=== PATIENT | male | born 1945 | race Caucasian/White ===

== ENCOUNTER → 2017-07-14 13:17 | Outpatient (CLI) | payer MEDICARE, OTHER, SELFPAY ==
--- NOTE | 2017-07-14 13:27 | CA_ITS ---
PROCEDURE: 2-D M-mode and color Doppler study INDICATIONS FOR THE TEST: Chest pain COPD Heart Murmur Tobacco Smoking Palpitations Fatigue Syncope EdemaX HypertensionXDiabetes MellitusX Rheumatic Fever SOB SEAY Obesity Hyperlipidemia Family History HD Additional History CHF PATIENT INFORMATION HEIGHT: 67 WEIGHT:130 GENDER: Male B/P:120/70 2-D/M-MODE INTERPRETATION: 2-D MEASUREMENTS OBSERVED VALUES IN CMS Right Ventricular Dimension (RVDd) 1.8 Interventricular Septum (Thickness)(IVsd) .7 Left Ventricular Internal Dimensions(LVIDd) 4.6 Left Ventricular Posterior Wall (Thickness)(LVPWd) .8 Aortic Root 3.3 Aortic Cusp Separation .4 Left Atrial Dimensions (LAD) 2.5 2D 1. Left atrium is mildly enlarged, left ventricle is normal size, there is mild concentric left ventricular hypertrophy, visually estimated ejection fraction 55% with no obvious regional wall motion abnormality. 2. The right atrium and right ventricle are normal size and contractility. 3. The aortic valve is thickened and calcified with restriction the leaflet mobility. 4. The mitral and tricuspid valve leaflets are minimally thickened. 5. The pulmonic valve is poorly visualized. 6. No significant pericardial effusion noted. DOPPLER INTERROGATION: 1. The maximum aortic out flow velocity recorded study 3.5 m/s, resulting in a mean gradient across valve of 30 mmHg, valve area is not accurately calculated, this likely represents moderate aortic stenosis, there is mild aortic insufficiency present. 2. The mitral inflow velocity within normal range, there is no mitral stenosis, there is mild mitral regurgitation. Grade 1 diastolic dysfunction seen with tissue Doppler evidence of raised left atrial pressure. 3. Mild tricuspid regurgitation, tricuspid and jet velocity is insufficient for calculation of the right ventricular systolic pressure. CONCLUSION: 1. Mildly enlarged left atrium, normal left ventricular size, mild concentric left ventricular hypertrophy, visually estimated ejection fraction 55% with no obvious regional wall motion abnormality, grade 1 diastolic dysfunction seen with tissue Doppler evidence of raised left atrial pressure. 2. Thickened and calcified aortic valve, mean gradient across valve of 30 mmHg represents moderate aortic stenosis, there is mild aortic insufficiency present. 4. Mild mitral and tricuspid regurgitation 5. No significant pericardial effusion noted.
== END ==
PROVIDERS: Family Provider Internal Medicine; PCP Internal Medicine; Visit Provider Internal Medicine
DX: R06.09 Other forms of dyspnea (principal); R60.9 Edema, unspecified; I50.9 Heart failure, unspecified
CPT/HCPCS: 93306

== ENCOUNTER → 2017-10-23 10:33 | Outpatient (CLI) | payer MEDICARE, OTHER, SELFPAY ==
--- NOTE | 2017-10-23 10:39 | XR_ITS ---
XR ankle LT min 3V HISTORY: Pain following injury medially ITS.REASON: LT FOOT/ANKLE INJURY ORDERING PHYSICIAN: Sachin Jimenez PATIENT AGE: 72 years COMPARISON: None FINDINGS: No fracture or dislocation. No lytic or blastic change. There is normal mineralization.. The joint spaces are well-preserved. No significant degenerative/arthritic changes. No erosive changes evident. Diffuse vascular calcification IMPRESSION: No acute finding
--- NOTE | 2017-10-23 10:39 | XR_ITS ---
XR foot LT min 3V HISTORY: Pain, abrasion following injury ITS.REASON: LT FOOT/ANKLE INJURY ORDERING PHYSICIAN: Sachin Jimenez PATIENT AGE: 72 years COMPARISON: None FINDINGS: No fracture or dislocation. No lytic or blastic change. There is normal mineralization.. The joint spaces are well-preserved. No significant degenerative/arthritic changes. No erosive changes evident. There is diffuse vascular calcification. No radio opaque foreign body evident IMPRESSION: Negative, no acute finding
== END ==
PROVIDERS: PCP Internal Medicine; Visit Provider Internal Medicine
DX: M25.572 Pain in left ankle and joints of left foot (principal)
CPT/HCPCS: 73610; 73630

== ENCOUNTER → 2017-10-25 14:09 | Outpatient (POV) | payer MEDICARE, OTHER, SELFPAY | PROVIDERS: Family Provider Internal Medicine; PCP Internal Medicine | DX: Z00.00 Encounter for general adult medical examination without abnormal findings (principal) ==

== ENCOUNTER → 2017-12-05 09:42 | Outpatient (CLI) | payer MEDICARE, OTHER, SELFPAY | PROVIDERS: PCP Internal Medicine; Visit Provider Internal Medicine | DX: Z01.810 Encounter for preprocedural cardiovascular examination (principal); H26.9 Unspecified cataract | CPT/HCPCS: 93005 ==

== ENCOUNTER → 2018-01-24 12:39 | Outpatient (POV) | payer MEDICARE, OTHER, SELFPAY | DX: Z00.00 Encounter for general adult medical examination without abnormal findings (principal) ==

== ENCOUNTER → 2018-03-16 09:44 | Outpatient (CLI) | payer MEDICARE, OTHER, SELFPAY ==
--- NOTE | 2018-03-16 10:03 | XR_ITS ---
XR chest 2V HISTORY: ITS.REASON: CP , COUGH ORDERING PHYSICIAN: Sachin Jimenez PATIENT AGE: 72 years COMPARISON: 04/17/2015 FINDINGS: Unremarkable cardiovascular structures. There are emphysematous changes with scattered areas of pulmonary fibrosis with chronic areas of opacification. A suture line is present in the left upper lobe. Increased density is present in the lingula consistent with superimposed pneumonia. There are stable bilateral upper lobe nodular opacities. There is ankylosis of the thoracic spine with no acute bony findings evident. IMPRESSION: Emphysema/COPD with chronic changes with superimposed pneumonia within the lingula
[2018-03-16 10:16] LABS: Troponin I < 0.02 ng/ml (0.00-0.06)
== END ==
PROVIDERS: PCP Internal Medicine; Visit Provider Internal Medicine
DX: R07.9 Chest pain, unspecified (principal); R05 Cough; I25.10 Atherosclerotic heart disease of native coronary artery without angina pectoris
CPT/HCPCS: 36415; 71046; 84484; 93005

== ENCOUNTER → 2018-03-21 06:34 | Outpatient (CLI) | payer MEDICARE, OTHER, SELFPAY ==
--- NOTE | 2018-03-21 06:36 | CA_ITS ---
PROCEDURE: 2-D M-mode and color Doppler study INDICATIONS FOR THE TEST: Chest pain + COPD+ Heart Murmur Tobacco Smoking Palpitations Fatigue+ Syncope Edema+ Hypertension Diabetes Mellitus+ Rheumatic Fever SOB+SEAY Obesity Hyperlipidemia+ Family History HD Additional History ABN EKG, CANCER CHEMO PATIENT INFORMATION HEIGHT: 68 WEIGHT:140 GENDER: Male B/P:126/67 2-D/M-MODE INTERPRETATION: 2-D MEASUREMENTS OBSERVED VALUES IN CMS Right Ventricular Dimension (RVDd) 1.6 Interventricular Septum (Thickness)(IVsd) 1.2 Left Ventricular Internal Dimensions(LVIDd) 4.9 Left Ventricular Posterior Wall (Thickness)(LVPWd) 0.7 Aortic Root 3.4 Aortic Cusp Separation 1.7 Left Atrial Dimensions (LAD) 3.6 2D 1. Left atrium is mildly enlarged, left ventricle is normal size, mild concentric left ventricular hypertrophy, visually estimated ejection fraction 55% with no regional wall motion abnormality. 2. The right atrium and right ventricle are normal size and contractility. 3. The aortic valve is thickened and calcified with severe restriction the leaflet mobility. 4. The mitral valve has mitral annular calcification which extends and both anterior and posterior mitral leaflet. 5. The tricuspid valve is grossly normal 6. The pulmonic valve is poorly visualized 7. No significant pericardial effusion noted. DOPPLER INTERROGATION: 1. The maximum aortic out flow velocity recorded study is 4 m/s, resulting in a mean gradient across valve of 33 mmHg, valve area of 0.9 sq cm represents severe aortic stenosis, there is mild aortic insufficiency present. 2. The mitral inflow velocity within normal range, there is no mitral stenosis, there is mild mitral regurgitation, grade 1 diastolic dysfunction seen with tissue Doppler evidence of raised left atrial pressure. 3. There is mild tricuspid regurgitation noted, tricuspid regurgitant jet velocity is inadequate for calculation of the right ventricular systolic pressure CONCLUSION: 1. Mildly enlarged left atrium, normal left ventricular size, mild concentric left ventricular hypertrophy, visually estimated ejection fraction of 55% with no regional wall motion abnormality, grade 1 diastolic dysfunction seen with tissue Doppler evidence of raised left atrial pressure. 2. Thickened and calcified aortic valve with mean gradient across valve of 33 mmHg, valve area 0.9 sq cm represents severe aortic stenosis, there is mild aortic insufficiency. 3. Mild mitral and tricuspid regurgitation 4. No significant pericardial effusion noted.
--- NOTE | 2018-03-21 06:36 | NM_ITS ---
History and Indications: Diabetes, family history, chest pain, shortness of breath, syncope, fatigue and left arm pain Procedure: Patient received a 0.4 mg of intravenous Lexiscan, resting heart rate was 68 bpm resting blood pressure 101/58, with Lexiscan maximum heart rate achieved was 85 bpm which is less than 85% of the maximum predicted heart rate and a blood pressure was 83/38. With Lexiscan patient, shortness of breath and chest pressure requiring intravenous Aminophyllin to reverse symptoms. Electrocardiogram: Resting electrocardiogram showed sinus rhythm right bundle branch block with Lexiscan there is less than 1.[address] segment depression noted from the baseline EKG. The EKG portion of the Lexiscan Myoview is nondiagnostic. Cardiac stress and resting SPECT images: Cardiac stress and resting SPECT images were obtained using technetium 99 Myoview 30.5 mCi at stress and 10.7 mCi at rest. Gated SPECT further analysis of segmental wall motion and calculation of the ejection fraction also done. Cardiac stress and rest SPECT images show uniform myocardial activity without segmental perfusion abnormality, computer derived ejection fraction is over 65% with no regional wall motion abnormality, right ventricle is normal size and contractility. Conclusion: 1. The EKG portion of the Lexiscan Myoview is nondiagnostic. 2. No scintigraphic evidence of reversible ischemia seen, computer derived ejection fraction is over 65% with no regional wall motion abnormality, right ventricle is normal size and contractility. 3. Normal Lexiscan Myoview study.
--- NOTE | 2018-03-21 07:42 | HMH.ITSHM ---
Current Home Medications as stated by this patient Jose Burger or brand representative. []GABAPENTIN FUROSEMIDE HYDROCHLOROTHIAZIDE PRAVASTATIN OXUDOCONE LEVOFLOXCIN ISOSORBIDE GLIMAPIRIDE ASA OCUVITE
--- NOTE | 2018-03-21 09:03 | HMH.ITSHM ---
Current Home Medications as stated by this patient Jose Burger or cash posting representative. []gabapentin furosemide hydrochlorothiazide pravastatin oxicodone levfloxcin isosorbide glimapiride asa ocuvite
== END ==
PROVIDERS: Family Provider Internal Medicine; PCP Internal Medicine; Visit Provider Internal Medicine
DX: R06.00 Dyspnea, unspecified; Z82.49 Family history of ischemic heart disease and other diseases of the circulatory system; I45.2 Bifascicular block; J18.9 Pneumonia, unspecified organism; J44.9 Chronic obstructive pulmonary disease, unspecified; R05 Cough; E11.9 Type 2 diabetes mellitus without complications; M79.602 Pain in left arm; I20.8 Other forms of angina pectoris
CPT/HCPCS: 78452; 93017; 93306; A9502; J2785

== ENCOUNTER → 2018-04-18 15:46 | Outpatient (POV) | payer MEDICARE, OTHER, SELFPAY | DX: Z00.00 Encounter for general adult medical examination without abnormal findings (principal) ==

== ENCOUNTER 2018-06-10 11:01 | Inpatient (IN) ==
[2018-06-10 11:32] LABS: Basophils % 0.2 % (0.1-2.0); Hematocrit 37.3 % (42.0-52.0); Hemoglobin 12.2 g/dL (14.1-18.0); Lymphocytes # 1.8 K/mm3 (0.7-4.5); Lymphocytes % 14.5 % (10-50); Mean Corpuscular HGB Conc 32.6 g/dL (31.8-35.4); Mean Corpuscular Hemoglobin 31.9 pg (27.0-31.2); Mean Corpuscular Volume 97.9 fl (80-94); Mean Platelet Volume 7.6 fl (7.4-10.4); Monocytes # 1.3 K/mm3 (0.1-1.0); Monocytes % 10.5 % (1.7-9.3); Neutrophils # 9.2 K/mm3 (1.8-7.8); Neutrophils % 74.7 % (37.0-80.0); Platelet Count 205 K/mm3 (142-424); Red Blood Count 3.81 M/mm3 (4.60-6.20); Red Cell Distribution Width 12.6 % (11.5-17.5); White Blood Count 12.3 K/mm3 (4.8-10.8)
[2018-06-10 11:46] LABS: Albumin Level 3.1 gm/dL (3.4-5.0); Albumin/Globulin Ratio 0.6 (1.1-1.8); Anion Gap 16.3 mEq/L (5-15); Calcium 8.8 mg/dL (8.5-10.1); Globulin 5.1 gm/dl (1.3-3.2); Potassium 3.3 mmoL/L (3.5-5.1); Total Protein,Serum 8.2 gm/dL (6.4-8.2)
--- NOTE | 2018-06-10 11:59 | Emergency Department Note ---
ED Disposition Clinical Impression: Pneumonia, Hypoxemia Disposition: Admitted As Inpatient Condition on Discharge: Good Time of Disposition: 12:51 - Critical Care Critical Care Time: No Attestation: On 06/10/18, the high probability of a clinically significant, sudden or life threatening deterioration of the following system(s) required my full and direct attention, intervention and personal management. The time I documented below is in addition to time spent performing reported procedures but includes the following listed in this critical care notation. Medical Decision Making - Medical Records Medical records reviewed: Yes: I reviewed the patient's medical records. - Quintin Inquiry Pt receiving controlled substance: No Quintin was queried for this patient: No Vital Signs: 06/10/18 11:01 06/10/18 11:10 06/10/18 11:47 Temperature 98.9 F Temperature Source Oral Pulse Rate Pulse Rate [Apical] 99 H 88 Respiratory Rate 20 20 Blood Pressure Blood Pressure [Right Arm] 125/64 108/50 L Blood Pressure Mean [Right Arm] 84 69 Blood Pressure Source Blood Pressure Source [Right Arm] Automatic Cuff Automatic Cuff Blood Pressure Position Blood Pressure Position [Right Arm] Sitting Sitting 02 Sat by Pulse Oximetry 82 L 92 L 92 L Oxygen Delivery Method Room Air Nasal Cannula Nasal Cannula Oxygen Flow Rate (LPM) 2 2 06/10/18 12:34 06/10/18 13:00 06/10/18 13:40 Temperature 99.2 F Temperature Source Oral Pulse Rate 80 88 Pulse Rate [Apical] 79 80 Respiratory Rate 20 16 20 Blood Pressure 109/57 L Blood Pressure [Right Arm] 108/61 L 112/67 Blood Pressure Mean [Right Arm] 76 82 Blood Pressure Source Automatic Cuff Blood Pressure Source [Right Arm] Automatic Cuff Automatic Cuff Blood Pressure Position Sitting Blood Pressure Position [Right Arm] Sitting Sitting 02 Sat by Pulse Oximetry 94 L 97 Oxygen Delivery Method Nasal Cannula Nasal Cannula Nasal Cannula Oxygen Flow Rate (LPM) 2 2 2 - Lab Data Lab results reviewed: Yes: I reviewed the patient's lab results. Lab Results 06/10/18 11:20: WBC 12.3 H, RBC 3.81 L, Hgb 12.2 L, Hct 37.3 L, MCV 97.9 H, MCH 31.9 H, MCHC 32.6, RDW 12.6, Plt Count 205, MPV 7.6, Neut % (Auto) 74.7, Lymph % (Auto) 14.5, [place] % (Auto) 10.5 H, Eos % (Auto) 0.0 L, Baso % (Auto) 0.2, Neut # (Auto) 9.2 H, Lymph # (Auto) 1.8, [place] # (Auto) 1.3 H, Eos # (Auto) 0.0, Baso # (Auto) 0.0 06/10/18 11:20: Sodium 136, Potassium 3.3 L, Chloride 95 L, Carbon Dioxide 28, Anion Gap 16.3 H, BUN 64 H, Creatinine 2.55 H, Estimated Creat Clear 22, Estimated GFR 25 L, Est GFR ( Amer) 30 L, Glucose 209 H, Calcium 8.8, Total Bilirubin 2.0 H, AST 86 H, ALT 59, Alkaline Phosphatase 132 H, Troponin I 0.12 H, Total Protein 8.2, Albumin 3.1 L, Globulin 5.1 H, Albumin/Globulin Ratio 0.6 L 06/10/18 11:20: Lactate 3.1 H 06/10/18 11:45: Influenza Type A Ag Negative, Influenza Type B Ag Negative Result diagrams: 06/10/18 11:20 06/10/18 11:20 Orders (Tests/Meds): ED MEDICATIONS Generic Name Dose Route Start Last Admin Trade Name Freq PRN Reason Stop Dose Admin Acetaminophen 650 mg 06/10/18 13:16 Acetaminophen 325mg Tab PO 07/10/18 13:08 Q4HP PRN As Needed for Fever or Pain Albuterol/Ipratropium 3 ml 06/10/18 13:16 Duoneb 3ml [facility] 07/10/18 13:12 Q6HP PRN Shortness Of Breath Albuterol/Ipratropium 3 ml 06/10/18 14:00 06/10/18 18:05 Duoneb 3ml [facility] 07/10/18 13:59 3 ml Q4H YONG Administration Azithromycin 500 mg/ Sodium 250 mls @ 250 mls/hr 06/11/18 13:00 Chloride IV 06/24/18 12:59 Q24H YOGN Protocol Ceftriaxone Sodium 1 gm/ 50 mls @ 100 mls/hr 06/11/18 09:00 Sodium Chloride IV 06/24/18 08:59 Q24H YONG Protocol Sodium Chloride 1,000 mls @ 200 mls/hr 06/10/18 13:16 06/10/18 13:52 Sod Chlor 0.9% 1000ml Bag IV 07/10/18 13:14 200 mls/hr .Q5H YONG Administration Insulin Human Lispro 0 unit 06/10/18 16:30 06/10/18 16:45 Humalog 100 Units/Ml 3ml Vial (Ssi) SQ 07/10/18 16:29 6 unit ACHS YONG Administration Protocol Ondansetron HCl 4 mg 06/10/18 13:16 Zofran 4mg/2ml Vial IV 07/10/18 13:08 Q8HP PRN Nausea Pravastatin Sodium 20 mg 06/10/18 21:00 Pravachol 20mg Tablet PO 07/10/18 20:59 HS [facility] Sodium Chloride 3 ml 06/10/18 15:56 Sodium Chloride 3% 15ml [facility] 07/10/18 15:55 ONCE PRN [employer]CE [employer] Discontinued Medications Generic Name Dose Route Start Last Admin Trade Name Freq PRN Reason Stop Dose Admin Acetaminophen 650 mg 06/10/18 13:09 Acetaminophen 325mg Tab PO 07/10/18 13:08 Q4HP PRN As Needed for Fever or Pain Albuterol/Ipratropium 3 ml 06/10/18 12:55 06/10/18 13:00 Duoneb 3ml [facility] 06/10/18 12:56 3 ml ONCE ONE Administration Albuterol/Ipratropium 3 ml 06/10/18 13:15 06/10/18 13:10 Duoneb 3ml [facility] 07/10/18 13:14 Not Given Q4H [facility] Albuterol/Ipratropium 3 ml 06/10/18 13:13 Duoneb 3ml [facility] 07/10/18 13:12 Q6HP PRN Shortness Of Breath Sodium Chloride 1,000 mls @ 999 mls/hr 06/10/18 12:00 06/10/18 11:51 Sod Chlor 0.9% 1000ml Bag IV 06/10/18 13:00 999 mls/hr .Q1H1M YONG Administration Ceftriaxone Sodium 1 gm/ 50 mls @ 100 mls/hr 06/10/18 12:00 06/10/18 12:32 Sodium Chloride IV 06/24/18 11:59 100 mls/hr Q24H YONG Administration Protocol Azithromycin 500 mg/ Sodium 250 mls @ 250 mls/hr 06/10/18 12:00 06/10/18 13:02 Chloride IV 06/24/18 11:59 250 mls/hr Q24H YONG Administration Protocol Sodium Chloride 500 mls @ 999 mls/hr 06/10/18 13:00 06/10/18 13:03 Sod Chlor 0.9% 1000ml Bag IV 06/10/18 13:30 999 mls/hr .Q31M YONG Administration Sodium Chloride 1,000 mls @ 200 mls/hr 06/10/18 13:15 06/10/18 13:22 Sod Chlor 0.9% 1000ml Bag IV 07/10/18 13:14 Not Given .Q5H YONG Insulin Human Lispro 0 unit 06/10/18 13:15 06/10/18 13:22 Humalog 100 Units/Ml 3ml Vial (Ssi) SQ 07/10/18 13:14 Not Given Q6H YONG Protocol Ondansetron HCl 4 mg 06/10/18 13:09 Zofran 4mg/2ml Vial IV 07/10/18 13:08 Q8HP PRN Nausea ORDERS Category Date Time Status Basic Metabolic Panel [facility] Lab 06/11/18 06:00 Ordered Complete Blood Count Auto Diff AMLAB Lab 06/11/18 06:00 Ordered Blood Culture Stat Micro 06/10/18 11:19 Ordered General Adult HPI - General Chief complaint: Altered Mental Status Stated complaint: confused Time Seen by Provider: 06/10/18 11:45 Mode of Arrival: Wheelchair Limitations: No Limitations Description of Symptoms (Recalled from ER Triage Doc. by RN): Pts reports pt has been acting confused x3 days. Reports pt developed flu like symptoms x3 days ago and reports pt has not been acting his normal since then. Pt is alert, oriented to person and place. reports pt has been taking a longer time to do normal tasks. Pt reports "I will try to go to the bathroom and will end up in the bedroom". Loose cough noted, pt is fidgety acting. - History of Present Illness HPI narrative: few days of progressive weakness, cough, fever - Related Data Home Medications Medication Instructions Recorded Confirmed furosemide 40 mg tablet 40 mg PO DAILY 03/19/18 06/10/18 gabapentin 300 mg capsule 300 mg PO BID 03/19/18 06/10/18 glimepiride 1 mg tablet 1 mg PO DAILY 03/19/18 06/10/18 hydrochlorothiazide 25 mg tablet 25 mg PO DAILY 03/19/18 06/10/18 isosorbide mononitrate ER 30 mg 30 mg PO DAILY 03/19/18 06/10/18 tablet,extended release 24 hr nitroglycerin 0.4 mg sublingual 0.4 mg SUBLINGUAL Q5-15M PRN 03/19/18 06/10/18 tablet oxycodone 15 mg tablet 15 mg PO Q4-6H PRN 03/19/18 06/10/18 pravastatin 20 mg tablet 20 mg PO DAILY 03/19/18 06/10/18 Allergies Allergy/AdvReac Type Severity Reaction Status Date / Time No Known Allergies Allergy Verified 06/10/18 11:37 [facility] History - Hepatitis A Screen Drug use history?: No High risk sexual behaviors?: No History of sexually transmitted infection?: No Currently employed?: No Childcare worker?: No Do you have indoor plumbing?: Yes Do you have electricity?: Yes Attestation statement:: This patient has been screened for Hepatitis A risk factors. I have reviewed the patient's past medical history: Yes Medical History: Reports:: Cancer (Lymphoma), Diabetes Mellitus Type 2, Kidney Stones Other Surgeries: Yes: Cancer Surgery, Cholecystectomy, Other (Lung Sx) - Social History Smoking Status: Never smoker Tobacco Type: pipe, cigars Alcohol Intake: never Substance Use Type: denies use - Psychiatric History Expresses thoughts of harming self/others: None Suicide Plan Description: No Plan Family Hx:: Heart Attack, Coronary Artery Disease Comment: Mother-AR at 27(). Father-AR at 60's (). Brother-CAD ROS Obtained: Yes All systems reviewed & no additional complaints - Constitutional Constitutional: Reports system reviewed and no additional complaints, except as docu, Reports chills, Reports malaise, Reports weakness - Eyes Eyes: Reports system reviewed and no additional complaints, except as docu, Denies change in vision - ENT Ears, Nose, Mouth, and Throat: Reports system reviewed and no additional complaints, except as docu, Reports nasal discharge, Reports nasal obstruction, Denies pain with swallowing, Denies throat swelling - Cardiovascular Cardiovascular: Reports system reviewed and no additional complaints, except as docu, Reports chest pain, Reports chest pain at rest, Denies leg edema, Denies shortness of breath causing sudden awakening, Denies pedal edema - Respiratory Respiratory: Yes system reviewed and no additional complaints, except as docu, Yes change in phlegm color, Yes chest congestion, Yes cough, Yes dyspnea, Yes dyspnea on exertion, No coughing up blood, Yes pain with cough - Gastrointestinal Gastrointestingal: Reports: system reviewed and no additional complaints, except as docu, nausea. Denies: diarrhea, vomiting - Genitourinary Male Genitourinary: Reports system reviewed and no additional complaints, except as docu, Denies urinary frequency - Musculoskeletal Musculoskeletal: Reports system reviewed and no additional complaints, except as docu - Integumentary/Breasts Skin/Breast: Reports system reviewed and no additional complaints, except as docu, Denies rash - Neurologic Neurologic: Reports system reviewed and no additional complaints, except as docu, Denies weakness - Hematologic/Lymphatic Henatologic/Lymphatic: Denies easy bleeding, Denies easy bruising, Denies lymphadenopathy Physical Exam - General General appearance: alert, in no apparent distress - Head Head exam: atraumatic, normocephalic, normal inspection - Eye Eye exam: Present: normal appearance, PERRL, EOMI - ENT ENT exam: Present: normal exam, normal oropharynx, mucous membranes moist, TM's normal bilaterally, normal external ear exam - Neck Neck exam: Present: normal inspection, full ROM, trachea midline. Absent: meningismus, lymphadenopathy - Chest Chest inspection: Present: normal inspection, symmetric chest wall rise - Respiratory Respiratory exam: Present: wheezes, other (dense rhonchi left base). Absent: normal lung sounds bilaterally, respiratory distress - Cardiovascular Cardiovascular exam: Present: regular rate, normal rhythm, systolic murmur. Absent: JVD - Abdominal Exam Abdominal exam: Present: soft, normal bowel sounds. Absent: distention, tenderness, guarding - Extremities Exam Extremities exam: Present: normal inspection, full ROM, normal capillary refill. Absent: calf tenderness - Neurological Exam Neurological exam: Present: alert, oriented X3 - Psychiatric Psychiatric exam: Present: normal affect, normal mood - Skin Skin exam: Present: warm, dry, intact, normal color - Lymphatic Lymphatic Findings: no adenopathy
[2018-06-11 06:21] LABS: Basophils % 0.2 % (0.1-2.0); Eosinophils # 0.1 K/mm3 (0.0-0.4); Eosinophils % 0.9 % (0.1-12.0); Hematocrit 32.6 % (42.0-52.0); Lymphocytes # 1.4 K/mm3 (0.7-4.5); Lymphocytes % 15.3 % (10-50); Mean Corpuscular HGB Conc 31.5 g/dL (31.8-35.4); Mean Corpuscular Hemoglobin 31.8 pg (27.0-31.2); Mean Platelet Volume 7.6 fl (7.4-10.4); Monocytes # 1.1 K/mm3 (0.1-1.0); Monocytes % 12.1 % (1.7-9.3); Neutrophils # 6.6 K/mm3 (1.8-7.8); Neutrophils % 71.6 % (37.0-80.0); Platelet Count 188 K/mm3 (142-424); Red Blood Count 3.23 M/mm3 (4.60-6.20); Red Cell Distribution Width 12.7 % (11.5-17.5); White Blood Count 9.3 K/mm3 (4.8-10.8)
[2018-06-11 06:27] LABS: Anion Gap 12.1 mEq/L (5-15); Potassium 3.1 mmoL/L (3.5-5.1)
[2018-06-11 07:00] LABS: Hemoglobin 10.3 g/dL (14.1-18.0)
[2018-06-11 07:01] LABS: Calcium 7.6 mg/dL (8.5-10.1)
--- NOTE | 2018-06-11 07:42 | Pharmacy Consult Notes ---
[facility] Pharmacy VTE Monitoring - Patient Demographics Admission date: 06/11/18 Report Date: 06/11/18 Time: 07:42 Allergies/Adverse Reactions: Patient Allergies No Known Allergies Allergy (Verified 06/10/18 11:37) Height: 1.73 m Weight: 60.129 kg Patient Problems: Current Active Problems Pneumonia (Acute) Hypoxemia (Acute) - VTE Risk Labs: VTE Related Lab Results Hgb 10.3 g/dL (14.1-18.0) L D 06/11/18 05:30 Hct 32.6 % (42.0-52.0) L 06/11/18 05:30 Plt Count 188 K/mm3 (142-424) 06/11/18 05:30 BUN 43 mg/dL (7-18) H D 06/11/18 05:30 Creatinine 1.67 mg/dL (0.70-1.30) H D 06/11/18 05:30 Estimated Creat Clear 34 mL/min (50-200) 06/11/18 05:30 VTE Score: 3 VTE Risk Level: Low Risk Clinical Trial Participant: No - Prophylaxis VTE Prophylaxis Ordered?: Yes Types of VTE Prophylaxis: TEDS Knee High
--- NOTE | 2018-06-11 10:05 | History & Physical Report ---
*Admission Date: 06/11/18 *Chief complaint: Cough and confusion *History of present illness: 72 yr old male with history of aortic valve disease and chronic lung disease presented to ED on 06/10/18 with complaints of 3-4 days of cough, sputum production, poor appetite and confusion. He and his both give details due to his poor recall of these events. She reports that he has occasional confusion even when he is not acutely ill but that this was worse just prior to admission. She had difficulty getting him to agree to be evaluated at the Emergency Department but was finally able to do so yesterday. They also report that he was treated as an outpatient for right lower lobe pneumonia in March 2018. ED evaluation showed elevated white blood cell count, acute kidney injury, right base infiltrate and elevated lactic acid so he was admitted for treatment of community-acquired pneumonia and confusion [facility] History Medical History: Reports:: Cancer (Lymphoma), Chronic Obstructive Pulmonary Disease (COPD) (Noted on recent xrays but he denies known history of COPD), Diabetes Mellitus Type 2, Heart Murmur (recent diagnosis of aortic valve stenosis, refused surgical intervention), Kidney Stones, Valvular Heart Disease Denies:: Diabetes Mellitus Type 1, MRSA Have you ever received a pneumonia vaccine?: Yes Have you received a flu vaccine this season?: Yes Other Medical History: Reports: Arthritis, Cataracts, Hoarseness Other Surgeries: Yes: Cancer Surgery, Cholecystectomy, Other (Lung Sx) Amputation: No Fractures: No - *Social History Educational Level: Completed GED/General Educational Development Smoking Status: Never smoker Tobacco Type: pipe, cigars Alcohol Intake: never Substance Use Type: denies use Occupational Status: disabled Housing: house Travel in the last 8 weeks: None - Psychiatric History Expresses thoughts of harming self/others: None Suicide Plan Description: No Plan *Family Hx:: Heart Attack, Coronary Artery Disease Review of Systems - Review of Systems Review of systems:: pertinent systems reviewed and negative unless documented below - Constitutional Reports chills, Reports malaise, Reports weakness - *Cardiovascular Reports chest pain, Denies shortness of breath Comments: history of chest pain, on Imdur and seen recently by cardiology. Refused surgical intervention for valvular heart disease - *Respiratory Reports chest congestion, Reports cough, Denies pain with cough - *Musculoskeletal Reports back pain, Reports radiating pain into limb Comments: right side, chronic pain, on narcotics as needed which he takes 3-4 times most days. Has been on this regimen since 2005 since undergoing treatment for lymphoma - *Neurologic Reports behavioral changes, Reports confusion, Denies weakness Comments: intermittent but worse over past 3 days Meds Home Medications Medication Instructions Recorded Confirmed Type furosemide 40 mg tablet 40 mg PO NEEDED PRN 03/19/18 06/11/18 History gabapentin 300 mg capsule 300 mg PO BID 03/19/18 06/10/18 History glimepiride 1 mg tablet 1 mg PO DAILY 03/19/18 06/10/18 History hydrochlorothiazide 25 mg tablet 25 mg PO DAILY 03/19/18 06/10/18 History isosorbide mononitrate ER 30 mg 30 mg PO DAILY 03/19/18 06/10/18 History tablet,extended release 24 hr nitroglycerin 0.4 mg sublingual 0.4 mg SUBLINGUAL Q5-15M PRN 03/19/18 06/10/18 History tablet oxycodone 15 mg tablet 15 mg PO Q6HP PRN 03/19/18 06/11/18 History pravastatin 20 mg tablet 20 mg PO DAILY 03/19/18 06/10/18 History Allergies Allergy/AdvReac Type Severity Reaction Status Date / Time No Known Allergies Allergy Verified 06/10/18 11:37 Exam Vital signs and Labs for Last 24 Hours: Temp Pulse Resp BP Pulse Ox 97.9 F 87 18 116/58 L 94 L 06/11/18 08:00 06/11/18 08:00 06/11/18 08:00 06/11/18 08:00 06/11/18 08:00 Laboratory Results - last 24 hr 06/10/18 11:20: WBC 12.3 H, RBC 3.81 L, Hgb 12.2 L, Hct 37.3 L, MCV 97.9 H, MCH 31.9 H, MCHC 32.6, RDW 12.6, Plt Count 205, MPV 7.6, Neut % (Auto) 74.7, Lymph % (Auto) 14.5, Crook % (Auto) 10.5 H, Eos % (Auto) 0.0 L, Baso % (Auto) 0.2, Neut # (Auto) 9.2 H, Lymph # (Auto) 1.8, Crook # (Auto) 1.3 H, Eos # (Auto) 0.0, Baso # (Auto) 0.0 06/10/18 11:20: Sodium 136, Potassium 3.3 L, Chloride 95 L, Carbon Dioxide 28, Anion Gap 16.3 H, BUN 64 H, Creatinine 2.55 H, Estimated Creat Clear 22, Estimated GFR 25 L, Est GFR ( Amer) 30 L, Glucose 209 H, Calcium 8.8, Total Bilirubin 2.0 H, AST 86 H, ALT 59, Alkaline Phosphatase 132 H, Troponin I 0.12 H, Total Protein 8.2, Albumin 3.1 L, Globulin 5.1 H, Albumin/Globulin Ratio 0.6 L 06/10/18 11:20: Lactate 3.1 H 06/10/18 11:45: Influenza Type A Ag Negative, Influenza Type B Ag Negative 06/10/18 14:34: Troponin I 0.14 H 06/10/18 16:36: POC Glucose 257 H 06/10/18 16:40: Lactate 1.7 06/10/18 20:07: POC Glucose 109 06/11/18 05:30: WBC 9.3, RBC 3.23 L, Hgb 10.3 L D, Hct 32.6 L, MCV 101.0 H, MCH 31.8 H, MCHC 31.5 L, RDW 12.7, Plt Count 188, MPV 7.6, Neut % (Auto) 71.6, Lymph % (Auto) 15.3, Crook % (Auto) 12.1 H, Eos % (Auto) 0.9, Baso % (Auto) 0.2, Neut # (Auto) 6.6, Lymph # (Auto) 1.4, Crook # (Auto) 1.1 H, Eos # (Auto) 0.1, Baso # (Auto) 0.0 06/11/18 05:30: Sodium 143, Potassium 3.1 L, Chloride 105, Carbon Dioxide 29, Anion Gap 12.1, BUN 43 H D, Creatinine 1.67 H D, Estimated Creat Clear 34, Estimated GFR 41 L, Est GFR ( Amer) 49 L D, Glucose 107 H D, Calcium 7.6 L D I & O for Last 24 hours: Intake & Output 06/08/18 06/09/18 06/10/18 06/11/18 11:59 11:59 11:59 11:59 Intake Total 4505 / 4505 Balance 4505 / 4505 Weight 130 lb 132 lb 9 oz Microbiology Reports for the Last 24 Hours: Microbiology 06/10/18 20:16 Sputum - Expectorated Sputum Gram Stain - Final - Constitutional no acute distress Comments: up on side of bed eating breakfast - *Routine HEENT Exam Head: Present: normocephalic Eye: Present: conjunctivae pink ENT: Present: mucous membranes moist Comments: upper dentures, lower teeth with caries - *Routine Neck Exam Present: supple. Absent: lymphadenopathy - *Routine Respiratory Exam Absent: accessory muscle use Comments: bibasilar rales - *Routine Cardiovascular Exam Present: RRR, murmur Comments: systolic - *Routine Abdominal Exam Present: soft, normoactive bowel sounds. Absent: tenderness, distended - *Routine Extremities Exam Present: pulses intact. Absent: clubbing, edema - *Routine Skin Exam Present: intact, warm. Absent: rash - *Routine Neurological Exam Present: oriented X3 some difficulty recalling recent events in great detail Assessment and Plan (1) Right lower lobe pneumonia Current visit: Yes Status: Acute Category: Medical Code(s): J18.1 - Lobar pneumonia, unspecified organism Continue ceftriaxone and azithromycin, trend WBC and followup on cultures when available (2) COPD with exacerbation Current visit: Yes Status: Acute Category: Medical Code(s): J44.1 - Chronic obstructive pulmonary disease with (acute) exacerbation remote use of pipe smoking. denies significant second hand smoke exposure. Denies known history of COPD but CXR last year and again this admission show chronic changes. Utilize nebulizer and monitor response (3) DIANA (acute kidney injury) Current visit: Yes Status: Acute Category: Medical Code(s): N17.9 - Acute kidney failure, unspecified Baseline creatinine unknown. Admission creatinine 2.2, down today to 1.67. Avoid nephrotoxins, monitor during admission (4) Lactic acid increased Current visit: Yes Status: Acute Category: Medical Code(s): E87.2 - Acidosis admission 3.1, normal on initial repeat (5) Aortic valve stenosis Current visit: Yes Status: Chronic Category: Medical Code(s): I35.0 - Nonrheumatic aortic (valve) stenosis Discontinue IVF at this time, having good oral intake this morning and labs are improved. Monitor for evidence of complications (6) Confusion and disorientation Current visit: Yes Status: Acute Category: Medical Code(s): R41.0 - Disorientation, unspecified Acutely worse than baseline per his but much improved today. Monitor and discuss with PCP on outpatient basis if this continues outside the setting of acute illness
[2018-06-12 06:43] LABS: Anion Gap 11.4 mEq/L (5-15); Potassium 3.4 mmoL/L (3.5-5.1)
[2018-06-12 07:07] LABS: Calcium 8.3 mg/dL (8.5-10.1)
[2018-06-12 07:26] LABS: Basophils % 0.2 % (0.1-2.0); Eosinophils # 0.2 K/mm3 (0.0-0.4); Eosinophils % 2.3 % (0.1-12.0); Hematocrit 32.9 % (42.0-52.0); Hemoglobin 10.7 g/dL (14.1-18.0); Lymphocytes # 1.9 K/mm3 (0.7-4.5); Lymphocytes % 18.7 % (10-50); Mean Corpuscular HGB Conc 32.4 g/dL (31.8-35.4); Mean Corpuscular Hemoglobin 31.6 pg (27.0-31.2); Mean Corpuscular Volume 97.7 fl (80-94); Mean Platelet Volume 8.8 fl (7.4-10.4); Monocytes # 1.2 K/mm3 (0.1-1.0); Monocytes % 11.6 % (1.7-9.3); Neutrophils # 6.8 K/mm3 (1.8-7.8); Neutrophils % 67.2 % (37.0-80.0); Platelet Count 231 K/mm3 (142-424); Red Blood Count 3.37 M/mm3 (4.60-6.20); White Blood Count 10.2 K/mm3 (4.8-10.8)
--- NOTE | 2018-06-12 09:24 | Discharge Summary ---
General - General Admission date:: 06/10/18 <Erik Guallpa - 06/12/18 22:43> 06/10/18 <Kaykay Burns - 06/12/18 09:34> Discharge date: 06/12/18 <Kaykay Bunrs - 06/12/18 09:34> HPI HPI: 72 yr old male with history of aortic valve disease and chronic lung disease presented to ED on 06/10/18 with complaints of 3-4 days of cough, sputum production, poor appetite and confusion. He and his both give details due to his poor recall of these events. She reports that he has occasional confusion even when he is not acutely ill but that this was worse just prior to admission. She had difficulty getting him to agree to be evaluated at the Emergency Department but was finally able to do so yesterday. They also report that he was treated as an outpatient for right lower lobe pneumonia in March 2018. ED evaluation showed elevated white blood cell count, acute kidney injury, right base infiltrate and elevated lactic acid so he was admitted for treatment of community-acquired pneumonia and confusion <Kaykay Burns - 06/12/18 09:34> Hospital Course Hospital Course: I agree with course and plan as outlined by Ms. Burns. Agree with exam findings. <Erik Guallpa - 06/12/18 22:43> Started on IV antibiotics with community-acquired protocol of ceftriaxone and azithromycin and routine treatment with nebulizer therapy. WBC has normalized, he denies shortness of breath, and cough is significantly improved. He is tolerating room air with oxygen saturation of 98% this morning. Renal function has significantly improved with creatinine 1.4 this morning. Good urine output. He reports another episode of confusion last evening when he had been woken up during the night but reports that is improved this morning. Suspect that he may have some underlying cognitive issues and encouraged them to discuss this with their primary care provider. <Kaykay Burns - 06/12/18 09:34> Objective Vital signs: Temp Pulse Resp BP Pulse Ox 98.4 F 81 20 117/58 L 95 06/12/18 08:00 06/12/18 08:00 06/12/18 08:00 06/12/18 08:00 06/12/18 08:55 <Erik Guallpa - 06/12/18 22:43> Temp Pulse Resp BP Pulse Ox 98.7 F 73 20 133/68 98 06/12/18 04:00 06/12/18 06:29 06/12/18 04:00 06/12/18 04:00 06/12/18 06:29 [facility] 09:34> no acute distress [facility] 06/12/18 09:34> - *Routine HEENT Exam Head: Present: normocephalic <[facility] 06/12/18 09:34> Eye: Present: conjunctivae pink [facility] 06/12/18 09:34> ENT: Present: mucous membranes moist <[facility] 06/12/18 09:34> - *Routine Neck Exam Present: supple <[facility] 06/12/18 09:34> - *Routine Respiratory Exam Present: CTA bilaterally. Absent: accessory muscle use, rales, rhonchi <[facility] 06/12/18 09:34> - *Routine Cardiovascular Exam Present: RRR, murmur <[facility] 06/12/18 09:34> - *Routine Abdominal Exam Present: soft, normoactive bowel sounds. Absent: tenderness, distended <[facility] 06/12/18 09:34> - *Routine Extremities Exam Present: normal capillary refill. Absent: clubbing, edema, calf tenderness <[facility] 06/12/18 09:34> - *Routine Skin Exam Present: intact, warm. Absent: rash <[facility] 06/12/18 09:34> - *Routine Neurological Exam Present: oriented X3, moving all extremities <[facility] 06/12/18 09:34> Results Labs on day of discharge: Labs from last 24 hours 06/12/18 06/12/18 06/12/18 06:10 05:44 05:44 WBC 10.2 RBC 3.37 L Hgb 10.7 L Hct 32.9 L MCV 97.7 H MCH 31.6 H MCHC 32.4 RDW 13.0 Plt Count 231 MPV 8.8 Neut % (Auto) 67.2 Lymph % (Auto) 18.7 Dyer % (Auto) 11.6 H Eos % (Auto) 2.3 Baso % (Auto) 0.2 Neut # (Auto) 6.8 Lymph # (Auto) 1.9 Dyer # (Auto) 1.2 H Eos # (Auto) 0.2 Baso # (Auto) 0.0 Sodium 139 Potassium 3.4 L Chloride 101 Carbon Dioxide 30 Anion Gap 11.4 BUN 29 H D Creatinine 1.45 H Estimated Creat Clear 39 Estimated GFR 48 L Est GFR ( Amer) 58 L Glucose 129 H POC Glucose 117 H Calcium 8.3 L Preliminary micro results at discharge 06/10/18 11:19 Blood Culture - Preliminary Blood NO GROWTH AFTER 48 HOURS 06/10/18 11:19 Blood Culture - Preliminary Blood NO GROWTH AFTER 48 HOURS 06/10/18 20:16 Sputum Culture - Preliminary Sputum - Expectorated Sputum <Erik Guallpa - 06/12/18 22:43> Labs from last 24 hours 06/12/18 06/12/18 06/12/18 06:10 05:44 05:44 WBC 10.2 RBC 3.37 L Hgb 10.7 L Hct 32.9 L MCV 97.7 H MCH 31.6 H MCHC 32.4 RDW 13.0 Plt Count 231 MPV 8.8 Neut % (Auto) 67.2 Lymph % (Auto) 18.7 Dyer % (Auto) 11.6 H Eos % (Auto) 2.3 Baso % (Auto) 0.2 Neut # (Auto) 6.8 Lymph # (Auto) 1.9 Dyer # (Auto) 1.2 H Eos # (Auto) 0.2 Baso # (Auto) 0.0 Sodium 139 Potassium 3.4 L Chloride 101 Carbon Dioxide 30 Anion Gap 11.4 BUN 29 H D Creatinine 1.45 H Estimated Creat Clear 39 Estimated GFR 48 L Est GFR ( Amer) 58 L Glucose 129 H POC Glucose 117 H Calcium 8.3 L 06/11/18 06/11/18 06/11/18 16:47 11:54 05:56 WBC RBC Hgb Hct MCV MCH MCHC RDW Plt Count MPV Neut % (Auto) Lymph % (Auto) Dyer % (Auto) Eos % (Auto) Baso % (Auto) Neut # (Auto) Lymph # (Auto) Dyer # (Auto) Eos # (Auto) Baso # (Auto) Sodium Potassium Chloride Carbon Dioxide Anion Gap BUN Creatinine Estimated Creat Clear Estimated GFR Est GFR ( Amer) Glucose POC Glucose 103 146 H 101 Calcium Preliminary micro results at discharge 06/10/18 20:16 Sputum Culture - Preliminary Sputum - Expectorated Sputum <Kaykay Burns Pavan - 06/12/18 09:34> DS: Diagnosis - Discharge Diagnosis (1) Right lower lobe pneumonia Status: Acute (2) COPD with exacerbation Status: Acute (3) DIANA (acute kidney injury) Status: Acute (4) Lactic acid increased Status: Acute (5) Aortic valve stenosis Status: Chronic (6) Confusion and disorientation Status: Acute <Erik Guallpa - 06/12/18 22:43> (1) Right lower lobe pneumonia Status: Acute (2) COPD with exacerbation Status: Acute (3) DIANA (acute kidney injury) Status: Acute (4) Lactic acid increased Status: Acute (5) Aortic valve stenosis Status: Chronic (6) Confusion and disorientation Status: Acute <KatyKaykay Pavan - 06/12/18 09:19> Discharge Plan - Patient Discharge Instructions ACTIVITY: Continue current activity, Ambulate as tolerated <Katy,Kaykay Pavan - 06/12/18 09:34> DIET: continue same diet <KatyKaykay higginbotham - 06/12/18 09:34> Additional Instructions: return to er or call md if any worsening of symptoms follow up with home doctor <Erik Guallpa - 06/12/18 22:43> Patient Instructions: DI for Pneumonia -- Adult, DI for Altered Mental Status <Erik Guallpa - 06/12/18 22:43> Forms: <Erik Guallpa - 06/12/18 22:43> - Follow up Plan Follow up with: Sachin Jimenez [Staff Physician] - 1 week <Erik Guallpa - 06/12/18 22:43> Disposition: Home, Self-Care <Erik Guallpa - 06/12/18 22:43> Home Medications: Home Medications Medication Instructions Recorded Confirmed Type furosemide 40 mg tablet 40 mg PO NEEDED PRN 03/19/18 06/11/18 History gabapentin 300 mg capsule 300 mg PO BID 03/19/18 06/10/18 History glimepiride 1 mg tablet 1 mg PO DAILY 03/19/18 06/10/18 History isosorbide mononitrate ER 30 mg 30 mg PO DAILY 03/19/18 06/10/18 History tablet,extended release 24 hr nitroglycerin 0.4 mg sublingual 0.4 mg SUBLINGUAL Q5-15M PRN 03/19/18 06/10/18 History tablet oxycodone 15 mg tablet 15 mg PO Q6HP PRN 03/19/18 06/11/18 History pravastatin 20 mg tablet 20 mg PO DAILY 03/19/18 06/10/18 History RX: Azithromycin [Zithromax 250mg 250 mg PO DAILY #3 tablet 06/12/18 Rx tab] RX: Cefdinir [Omnicef 300mg 300 mg PO BID 7 Days #14 cap 06/12/18 Rx Capsule] RX: Insulin Lispro [HumaLOG 100 0 unit SQ ACHS ml 06/12/18 Rx units/mL 3mL vial (SSI)] <Erik Guallpa - 06/12/18 22:43> Prescriptions/Medication Reconciliation: New RX: Cefdinir [Omnicef 300mg Capsule] 300 mg PO BID 7 Days #14 cap RX: Insulin Lispro [HumaLOG 100 units/mL 3mL vial (SSI)] 0 unit SQ ACHS ml RX: Azithromycin [Zithromax 250mg tab] 250 mg PO DAILY #3 tablet Continue nitroglycerin 0.4 mg sublingual tablet 0.4 mg SUBLINGUAL Q5-15M PRN PRN Reason: Chest Pain pravastatin 20 mg tablet 20 mg PO DAILY furosemide 40 mg tablet 40 mg PO NEEDED PRN PRN Reason: DIURETIC glimepiride 1 mg tablet 1 mg PO DAILY oxycodone 15 mg tablet 15 mg PO Q6HP PRN PRN Reason: pain isosorbide mononitrate ER 30 mg tablet,extended release 24 hr 30 mg PO DAILY gabapentin 300 mg capsule 300 mg PO BID Discontinued hydrochlorothiazide 25 mg tablet 25 mg PO DAILY <Erik Guallpa - 06/12/18 22:43>
== END 2018-06-12 10:27 | disposition home or self-care (01) | DRG 190 ==
LOC: ER 11:01 → 2ND 12:59
PROVIDERS: ADMIT Family Medicine; ATTEND Internal Medicine Adolescent Medicine
CPT/HCPCS: 36415; 71010; 71045; 80048; 80053; 82962; 83605; 84484; 85025; 87040; 87070; 87205; 87275; 87276; 93005; 94640; 94760; 94761; 96365; 96366; 96367; 96375; 99285; J0456

== ENCOUNTER 2018-06-13 20:21 | Inpatient (IN) ==
[2018-06-13 20:50] LABS: Microscopic, Urine URINE MICROSCOPIC (MICROSCOPIC)
[2018-06-13 20:51] LABS: Basophils % 0.3 % (0.1-2.0); Eosinophils # 0.4 K/mm3 (0.0-0.4); Eosinophils % 2.2 % (0.1-12.0); Hematocrit 37.1 % (42.0-52.0); Hemoglobin 11.7 g/dL (14.1-18.0); Lymphocytes # 3.1 K/mm3 (0.7-4.5); Lymphocytes % 19.1 % (10-50); Mean Corpuscular HGB Conc 31.4 g/dL (31.8-35.4); Mean Corpuscular Hemoglobin 31.3 pg (27.0-31.2); Mean Corpuscular Volume 99.5 fl (80-94); Mean Platelet Volume 7.3 fl (7.4-10.4); Monocytes # 1.8 K/mm3 (0.1-1.0); Monocytes % 11.4 % (1.7-9.3); Neutrophils # 10.8 K/mm3 (1.8-7.8); Neutrophils % 67.1 % (37.0-80.0); Platelet Count 263 K/mm3 (142-424); Red Blood Count 3.73 M/mm3 (4.60-6.20); Red Cell Distribution Width 13.1 % (11.5-17.5); White Blood Count 16.2 K/mm3 (4.8-10.8)
[2018-06-13 20:53] LABS: Appearance,Urine CLEAR (Clear); Bilirubin,Urine Negative (Negative); Blood, Urine Negative (Negative); Color,Urine YELLOW (Yellow); Glucose,Urine (UA) Negative (Negative); Ketones,Urine Negative (Negative); Leukocyte Esterase,Urine Negative (Negative); Protein,Urine 1+ (Negative); Specific Gravity, Urine 1.025 (1.005-1.030); Urobilinogen,Urine 0.2 EU/dl (0.2)
[2018-06-13 21:15] LABS: Albumin Level 2.6 gm/dL (3.4-5.0); Albumin/Globulin Ratio 0.5 (1.1-1.8); Anion Gap 9.6 mEq/L (5-15); Bilirubin,Total 0.8 mg/dL (0.2-1.0); Calcium 8.2 mg/dL (8.5-10.1); Globulin 4.8 gm/dl (1.3-3.2); Potassium 3.6 mmoL/L (3.5-5.1); Total Protein,Serum 7.4 gm/dL (6.4-8.2)
[2018-06-13 21:32] LABS: Amorphous Sediment,Urine 1+ /lpf; Bacteria,Urine 2+ /lpf; RBC,Urine Occasional #/hpf (0-3); Squamous Epithelial Cell,Urine Occasional #/hpf (0-5)
[2018-06-13 21:49] LABS: Anisocytosis 1+; Eosinophils % 2 % (0-3); Lymphocytes % 8 % (10-50); Monocytes % 10 % (2-9); Neutrophils % 80 % (42-76); Total Cells Counted 100
--- NOTE | 2018-06-13 23:31 | Emergency Department Note ---
ED Disposition Clinical Impression: HCAP (healthcare-associated pneumonia), Acute delirium Aortic valve stenosis Qualifiers: Cardiac valve disease etiology: nonrheumatic Qualified Code(s): I35.0 - Nonrheumatic aortic (valve) stenosis Disposition: Admitted as Observation Condition on Discharge: Fair Instructions: DI for Altered Mental Status Referrals: Sachin Jimenez [Primary Care Provider] - - Critical Care Critical Care Time: No Attestation: On 06/13/18, the high probability of a clinically significant, sudden or life threatening deterioration of the following system(s) required my full and direct attention, intervention and personal management. The time I documented below is in addition to time spent performing reported procedures but includes the following listed in this critical care notation. Medical Decision Making - Medical Records Medical records reviewed: Yes: I reviewed the patient's medical records. - Quintin Inquiry Pt receiving controlled substance: No Vital Signs: 06/13/18 20:26 06/13/18 20:58 06/13/18 22:11 Temperature 98.5 F 103.5 F H 101.9 F H Temperature Source Oral Rectal Rectal Pulse Rate [Right Brachial] 85 81 78 Respiratory Rate 14 20 20 Blood Pressure [Right Arm] 135/73 115/86 109/60 L Blood Pressure Mean [Right Arm] 93 95 76 Blood Pressure Source [Right Arm] Automatic Cuff Blood Pressure Position [Right Arm] Sitting 02 Sat by Pulse Oximetry 88 L 99 93 L Oxygen Delivery Method Room Air Nasal Cannula Oxygen Flow Rate (LPM) 2 06/13/18 22:52 Temperature Temperature Source Pulse Rate [Right Brachial] 77 Respiratory Rate 20 Blood Pressure [Right Arm] 145/79 H Blood Pressure Mean [Right Arm] 101 Blood Pressure Source [Right Arm] Blood Pressure Position [Right Arm] 02 Sat by Pulse Oximetry 96 Oxygen Delivery Method Nasal Cannula Oxygen Flow Rate (LPM) 2 - Lab Data Lab results reviewed: Yes: I reviewed the patient's lab results. Lab Results 06/13/18 20:35: Urine Color Yellow, Urine Appearance Clear, Urine pH 6.0, Ur Specific [place] 1.025, Urine Protein 1+, Urine Glucose (UA) Negative, Urine Ketones Negative, Urine Blood Negative, Urine Nitrate Negative, Urine Bilirubin Negative, Urine Urobilinogen 0.2, Ur Leukocyte Esterase Negative, Urine RBC Occasional, Urine WBC 3-5, Ur Squamous Epith Cells Occasional, Amorphous Sediment 1+, Urine Bacteria 2+ 01/09/19 20:35: WBC 16.2 H D, RBC 3.73 L, Hgb 11.7 L, Hct 37.1 L, MCV 99.5 H, MCH 31.3 H, MCHC 31.4 L, RDW 13.1, Plt Count 263, MPV 7.3 L, Neut % (Auto) 67.1, Lymph % (Auto) 19.1, White % (Auto) 11.4 H, Eos % (Auto) 2.2, Baso % (Auto) 0.3, Neut # (Auto) 10.8 H, Lymph # (Auto) 3.1, [place] # (Auto) 1.8 H, Eos # (Auto) 0.4, Baso # (Auto) 0.0, Total Counted 100, Neutrophils % (Manual) 80 H, Lymphocytes % (Manual) 8 L, Monocytes % (Manual) 10 H, Eosinophils % (Manual) 2, Platelet Es timate Normal, Anisocytosis 1+ 06/13/18 20:35: Sodium 135 L, Potassium 3.6, Chloride 98, Carbon Dioxide 31, Anion Gap 9.6, BUN 30 H, Creatinine 1.78 H D, Estimated Creat Clear 29, Estimated GFR 38 L, Est GFR ( Amer) 46 L D, Glucose 189 H, Calcium 8.2 L, Total Bilirubin 0.8, AST 72 H, ALT 111 H, Alkaline Phosphatase 136 H, Total Protein 7.4, Albumin 2.6 L, Globulin 4.8 H, Albumin/Globulin Ratio 0.5 L 06/13/18 20:35: Total Creatine Kinase 111, CK-MB (CK-2) 0.9, CK-MB (CK-2) Rel Index 0.8, Troponin I 0.05 06/13/18 20:35: Lactate 1.3 Result diagrams: 06/13/18 20:35 06/13/18 20:35 Orders (Tests/Meds): ED MEDICATIONS Generic Name Dose Route Start Last Admin Trade Name Freq PRN Reason Stop Dose Admin Sodium Chloride 1,000 mls @ 999 mls/hr 06/13/18 21:00 06/13/18 20:54 Sod Chlor 0.9% 1000ml Bag IV 06/13/18 22:00 999 mls/hr .[id number] YONG Administration Discontinued Medications Generic Name Dose Route Start Last Admin Trade Name Jr PRN Reason Stop Dose Admin Acetaminophen 1,000 mg 06/13/18 20:51 06/13/18 20:54 Acetaminophen 650mg Suppository RC 06/13/18 20:52 1,000 mg ONCE ONE Administration ORDERS Category Date Time Status CT cervical spine wo con Stat Cat Scan 06/13/18 20:[address] head/brain wo con Stat Cat Scan 06/13/18 20:35 Taken Chest XR AP view [XR chest AP] Stat Exams 06/13/18 21:11 Taken XR pelvis 1-2V Stat Exams 06/13/18 20:35 Taken Urinalysis and Microscopic Stat Lab 06/13/18 20:35 Ordered Blood Culture Stat Micro 06/13/18 20:35 Received Urine Culture Stat Micro 06/13/18 20:35 Received Arterial Blood Gas Routine RT 06/13/18 21:11 Received Arterial Blood Gas Stat RT 06/13/18 20:36 Ordered - Radiology Data #1 Image(s): Chest, Pelvis Image Reviewed: Yes I reviewed the patient's radiology image Preliminary Findings: Abnormal (inc changes chest ), No Fracture Seen - CT Data CT Scan: Head, C-Spine Time Received: 23:[address] Reviewed: Yes: I have viewed the radiologist's interpretation Preliminary Findings: No Fracture Seen - ECG Data Tracing #1 Ischemic changes: non-specific ST-T wave changes Conduction abnormalities present: LPFB, RBBB ECG compared to prior tracings: there are no significant changes Altered Mental Status HPI - General Chief Complaint: Altered Mental Status Stated Complaint: Weakness;not eating; confused Time Seen by Provider: 06/13/18 21:00 Mode of Arrival: Wheelchair Source of Information: Patient, Spouse, Relative, Medical Record Limitations: No Limitations Description of Symptoms (Recalled from ER Triage Doc. by RN): family presents with patient having incr weakness and difficulty performing adl's; they mentioned he has greatly deterioriated in the last 4 days. states he has been not comprehending needs of adls and is falling asleep frequently - History of Present Illness HPI narrative: this wm whoi was recently admitted for possible cap - he improved and on op abx - family report episodes of confusion and he had fall tonight and was noted to have fever - pt denied any specicic c/o and has cough and no abd pain hx of heart disease - complaint: altered mental status, confusion Onset (ago): day(s) Timing confirmed by: spouse, family member Severity: similar to previous episodes Consistency of symptoms: waxing and waning Context: diabetes - Related Data Home Medications Medication Instructions Recorded Confirmed furosemide 40 mg tablet 40 mg PO NEEDED PRN 03/19/18 06/13/18 gabapentin 300 mg capsule 300 mg PO BID 03/19/18 06/13/18 glimepiride 1 mg tablet 1 mg PO DAILY 03/19/18 06/13/18 isosorbide mononitrate ER 30 mg 30 mg PO DAILY 03/19/18 06/13/18 tablet,extended release 24 hr nitroglycerin 0.4 mg sublingual 0.4 mg SUBLINGUAL Q5-15M PRN 03/19/18 06/13/18 tablet oxycodone 15 mg tablet 15 mg PO Q6HP PRN 03/19/18 06/13/18 pravastatin 20 mg tablet 20 mg PO DAILY 03/19/18 06/13/18 Azithromycin [Zithromax 250mg 250 mg PO DAILY 06/13/18 06/13/18 tab] Cefdinir [Omnicef 300mg Capsule] 300 mg PO BID 06/13/18 06/13/18 Insulin Lispro [HumaLOG 100 0 unit SQ ACHS 06/13/18 06/13/18 units/mL 3mL vial (SSI)] Allergies Allergy/AdvReac Type Severity Reaction Status Date / Time No Known Allergies Allergy Verified 06/10/18 11:37 [facility] History - Hepatitis A Screen Drug use history?: No High risk sexual behaviors?: No History of sexually transmitted infection?: No Currently employed?: No Childcare worker?: No Do you have indoor plumbing?: Yes Do you have electricity?: Yes Attestation statement:: This patient has been screened for Hepatitis A risk factors. I have reviewed the patient's past medical history: Yes Medical History: Reports:: Cancer (Lymphoma), Chronic Obstructive Pulmonary Disease (COPD) (Noted on recent xrays but he denies known history of COPD), Diabetes Mellitus Type 2, Heart Murmur (recent diagnosis of aortic valve stenosi s, refused surgical intervention), Kidney Stones, Valvular Heart Disease Denies:: Diabetes Mellitus Type 1, MRSA Other Medical History: Reports: Arthritis, Cataracts, Hoarseness Other Surgeries: Yes: Cancer Surgery, Cholecystectomy, Other (Lung Sx) Amputation: No Fractures: No - Social History Educational Level: Completed High School Smoking Status: Never smoker Tobacco Type: pipe, cigars Alcohol Intake: never Substance Use Type: denies use Occupational Status: disabled Housing: house - Psychiatric History Expresses thoughts of harming self/others: None Suicide Plan Description: No Plan Family Hx:: Heart Attack, Coronary Artery Disease Comment: Mother-IA at 27(). Father-IA at 60's (). Brother-CAD ROS Obtained: Yes All systems reviewed & no additional complaints - Constitutional Constitutional: Reports as per HPI, Reports fever(s), Reports frequent falls - Eyes Eyes: Denies change in vision - ENT Ears, Nose, Mouth, and Throat: Denies sore throat - Cardiovascular Cardiovascular: Denies chest pain at rest - Respiratory Respiratory: No cough - Gastrointestinal Gastrointestingal: Denies: abdominal pain, vomiting - Genitourinary Male Genitourinary: Denies hematuria - Musculoskeletal Musculoskeletal: Denies joint pain, Reports neck pain - Integumentary/Breasts Skin/Breast: Denies rash - Neurologic Neurologic: Reports as per HPI, Reports confusion, Reports frequent falls, Denies seizure-like activity Physical Exam - General General appearance: alert, in no apparent distress - Head Head exam: normocephalic - Eye Eye exam: Present: PERRL. Absent: scleral icterus - ENT ENT exam: Present: mucous membranes dry - Neck Neck exam: Present: trachea midline - Respiratory Respiratory exam: Present: other (dec bs bilat ). Absent: respiratory distress - Cardiovascular Cardiovascular exam: Present: regular rate, systolic murmur - Abdominal Exam Abdominal exam: Present: soft - Extremities Exam Extremities exam: Present: full ROM - Neurological Exam Neurological exam: Present: alert, oriented X3, CN II-XII intact, other. Absent: motor sensory deficit (was confused but improved after fluids and tyenol ) - Psychiatric Psychiatric exam: Present: other (no focal changes ) - Skin Skin exam: Absent: rash
[2018-06-14 06:03] LABS: ABG HCO3 26.8 mmhg (22.0-26.0); ABG PCO2 39.7 mmhg (35.0-45.0); ABG PH 7.45 mmol/L (7.35-7.45); ABG PO2 72.8 mmhg (80-100)
[2018-06-14 06:04] LABS: ABG Base Excess 2.7 mmol/L (-2.4-2.3); ABG Oxygen Saturation 94 % (90-100)
[2018-06-14 06:05] LABS: Allen's Test ACCEPTABLE; Oxygen 2LPM %
[2018-06-14 06:14] LABS: Basophils % 0.3 % (0.1-2.0); Eosinophils # 0.4 K/mm3 (0.0-0.4); Hematocrit 31.3 % (42.0-52.0); Lymphocytes # 1.8 K/mm3 (0.7-4.5); Lymphocytes % 18.1 % (10-50); Mean Corpuscular HGB Conc 31.4 g/dL (31.8-35.4); Mean Corpuscular Hemoglobin 31.7 pg (27.0-31.2); Mean Corpuscular Volume 101.1 fl (80-94); Mean Platelet Volume 6.7 fl (7.4-10.4); Monocytes % 9.6 % (1.7-9.3); Neutrophils # 6.8 K/mm3 (1.8-7.8); Platelet Count 224 K/mm3 (142-424); Red Cell Distribution Width 13.1 % (11.5-17.5)
[2018-06-14 06:26] LABS: Anion Gap 11.5 mEq/L (5-15); Calcium 7.7 mg/dL (8.5-10.1); Potassium 3.5 mmoL/L (3.5-5.1)
--- NOTE | 2018-06-14 08:39 | History & Physical Report ---
*Admission Date: 06/14/18 *Chief complaint: Mental status changes/fever *History of present illness: 72-year-old white male who suffers from chronic pain syndrome, and takes oxycodone every 6 hours and gabapentin on a regular basis who was admitted earlier this week with lobar pneumonia. Discharged home after met inpatient goals of treatment, with negative cultures on empiric broad-spectrum therapy because of x-ray findings of lobar pneumonia. Initially did well but yesterday evening became somnolent and "blacked out" and fell down. Regained consciousness at home spontaneously but was unable to do anything under his own power and was brought to the emergency department. Found to have a temperature elevation x1 in the ER of 103 degrees, white count was slightly elevated, was very weak and disoriented and readmitted to hospital. This morning on examination patient is alert, oriented x3, and feeling much stronger. He is sitting on the side of the bed under his own power and eating breakfast well. Denies shortness of air, chest pain or GI distress. [facility] History I have reviewed the patient's past medical history: Yes Medical History: Reports:: Cancer, Chronic Obstructive Pulmonary Disease (COPD) (Noted on recent xrays but he denies known history of COPD), Diabetes Mellitus Type 2, Heart Murmur (recent diagnosis of aortic valve stenosis, refused surgical intervention), Hyperlipidemia, Hypertension, Kidney Stones, Valvular Heart Disease (Critical aortic stenosis, patient has declined surgical evaluation) Denies:: Diabetes Mellitus Type 1, MRSA Have you ever received a pneumonia vaccine?: Yes Have you received a flu vaccine this season?: Yes Other Medical History: Reports: Arthritis, Cataracts, Hoarseness Laterality Cases: Left: Cataract Other Surgeries: Yes: Cancer Surgery, Cholecystectomy, Other (Lung biopsy.) Amputation: No Fractures: No - *Social History Educational Level: Completed GED/General Educational Development Smoking Status: Former smoker Tobacco Type: pipe, cigars Alcohol Intake: never Substance Use Type: denies use Occupational Status: retired Housing: house Household Members: spouse Travel in the last 8 weeks: None - Psychiatric History Expresses thoughts of harming self/others: None Suicide Plan Description: No Plan *Family Hx:: Heart Attack, Coronary Artery Disease Review of Systems - Review of Systems Review of systems:: pertinent systems reviewed and negative unless documented below - Constitutional Denies anorexia, Denies body ache(s), Denies chills - Eyes Denies blind spots - ENT Denies abnormal hearing, Denies bleeding gums - *Cardiovascular Reports shortness of breath, Reports shortness of breath with activity, Denies chest pain, Denies chest pain at rest, Denies chest pain with activity - *Respiratory Denies change in phlegm color, Denies chest congestion - *Gastrointestinal Denies abdominal pain, Denies belching, Denies bloating - *Genitourinary Denies difficulty urinating - *Musculoskeletal Reports abnormal walking - *Neurologic Reports confusion, Reports frequent falls, Denies seizure-like activity Meds Home Medications Medication Instructions Recorded Confirmed Type furosemide 40 mg tablet 40 mg PO NEEDED PRN 03/19/18 06/14/18 History gabapentin 300 mg capsule 300 mg PO BID 03/19/18 06/14/18 History glimepiride 1 mg tablet 1 mg PO DAILY 03/19/18 06/14/18 History isosorbide mononitrate ER 30 mg 30 mg PO DAILY 03/19/18 06/14/18 History tablet,extended release 24 hr oxycodone 15 mg tablet 15 mg PO Q6HP PRN 03/19/18 06/14/18 History pravastatin 20 mg tablet 20 mg PO HS 03/19/18 06/14/18 History Azithromycin [Zithromax 250mg 250 mg PO DAILY 06/13/18 06/14/18 History tab] Cefdinir [Omnicef 300mg Capsule] 300 mg PO BID 06/13/18 06/14/18 History Allergies Allergy/AdvReac Type Severity Reaction Status Date / Time No Known Allergies Allergy Verified 06/14/18 00:25 Exam Vital signs and Labs for Last 24 Hours: Temp Pulse Resp BP Pulse Ox 97.9 F 68 20 125/62 92 L 06/14/18 07:37 06/14/18 07:37 06/14/18 07:37 06/14/18 07:37 06/14/18 07:37 Laboratory Results - last 24 hr 06/13/18 20:35: Urine Color Yellow, Urine Appearance Clear, Urine pH 6.0, Ur Specific [place] 1.025, Urine Protein 1+, Urine Glucose (UA) Negative, Urine Ketones Negative, Urine Blood Negative, Urine Nitrate Negative, Urine Bilirubin Negative, Urine Urobilinogen 0.2, Ur Leukocyte Esterase Negative, Urine RBC Occasional, Urine WBC 3-5, Ur Squamous Epith Cells Occasional, Amorphous Sediment 1+, Urine Bacteria 2+ 06/13/18 20:35: WBC 16.2 H D, RBC 3.73 L, Hgb 11.7 L, Hct 37.1 L, MCV 99.5 H, MCH 31.3 H, MCHC 31.4 L, RDW 13.1, Plt Count 263, MPV 7.3 L, Neut % (Auto) 67.1, Lymph % (Auto) 19.1, [place] % (Auto) 11.4 H, Eos % (Auto) 2.2, Baso % (Auto) 0.3, Neut # (Auto) 10.8 H, Lymph # (Auto) 3.1, [place] # (Auto) 1.8 H, Eos # (Auto) 0.4, Baso # (Auto) 0.0, Total Counted 100, Neutrophils % (Manual) 80 H, Lymphocytes % (Manual) 8 L, Monocytes % (Manual) 10 H, Eosinophils % (Manual) 2, Platelet Estimate Normal, Anisocytosis 1+ 06/13/18 20:35: Sodium 135 L, Potassium 3.6, Chloride 98, Carbon Dioxide 31, Anion Gap 9.6, BUN 30 H, Creatinine 1.78 H D, Estimated Creat Clear 29, Estimated GFR 38 L, Est GFR ( Amer) 46 L D, Glucose 189 H, Calcium 8.2 L, Total Bilirubin 0.8, AST 72 H, ALT 111 H, Alkaline Phosphatase 136 H, Total Protein 7.4, Albumin 2.6 L, Globulin 4.8 H, Albumin/Globulin Ratio 0.5 L 06/13/18 20:35: Total Creatine Kinase 111, CK-MB (CK-2) 0.9, CK-MB (CK-2) Rel Index 0.8, Troponin I 0.05 06/13/18 20:35: Lactate 1.3 06/13/18 21:11: Specimen Source L radial, O2 % 2lpm, ABG pH 7.45, ABG pCO2 39.7, ABG pO2 72.8 L, ABG HCO3 26.8 H, ABG Total CO2 28.0 H, ABG O2 Saturation 94, ABG Base Excess 2.7 H, [place] Test Acceptable 06/14/18 02:45: Troponin I 0.06 06/14/18 05:45: Troponin I 0.05 06/14/18 05:45: WBC 10.0 D, RBC 3.10 L, Hgb 10.0 L D, Hct 31.3 L, MCV 101.1 H, MCH 31.7 H, MCHC 31.4 L, RDW 13.1, Plt Count 224, MPV 6.7 L, Neut % (Auto) 68.0, Lymph % (Auto) 18.1, [place] % (Auto) 9.6 H, Eos % (Auto) 4.0, Baso % (Auto) 0.3, Neut # (Auto) 6.8, Lymph # (Auto) 1.8, [place] # (Auto) 1.0, Eos # (Auto) 0.4, Baso # (Auto) 0.0 06/14/18 05:45: Sodium 139, Potassium 3.5, Chloride 102, Carbon Dioxide 29, Anion Gap 11.5, BUN 25 H, Creatinine 1.36 H D, Estimated Creat Clear 42, Estimated GFR 51 L, Est GFR ( Amer) 62 D, Glucose 126 H D, Calcium 7.7 L , Magnesium 1.7 06/14/18 05:53: POC Glucose 117 H I & O for Last 24 hours: Intake & Output 06/11/18 06/12/18 06/13/18 06/14/18 11:59 11:59 11:59 11:59 Intake Total 1036 / 1036 Output Total 625 / 625 Balance 411 / 411 Weight 134 lb 7.712 oz Narrative: Patient is alert. Oriented x3. No cranial nerve deficits. No JVD. Lungs have some crackles in both bases. Otherwise good air movement. Abdomen soft and nontender. Heart rate regular with harsh 3/6 holosystolic murmur. No edema or clubbing. Assessment and Plan (1) Diabetes mellitus type 2, noninsulin dependent Current visit: Yes Status: Acute Category: Medical Code(s): E11.9 - Type 2 diabetes mellitus without complications Type 2 diabetes. Sliding scale in the hospital. Patient is a poor candidate for sulfonylureas. Would be a better candidate on discharge for a DPP 4 inhibitor (2) Acute delirium Current visit: Yes Status: Acute Category: Medical Code(s): R41.0 - Disorientation, unspecified Better now that fever curve is broken. Multiple reasons for delirium include sundowning, chronic narcotic/gabapentin effects. (3) Aortic valve stenosis Current visit: Yes Status: Chronic Qualifiers: Cardiac valve disease etiology: nonrheumatic Qualified Code(s): I35.0 - Nonrheumatic aortic (valve) stenosis Category: Medical Code(s): I35.0 - Nonrheumatic aortic (valve) stenosis Patient that his aortic valve stenosis Janis was found to be and follow. He is aware this resulted in surgery. He does maintain a DNR status. Given his ongoing weakness he is a candidate for long-term care placement. PT/OT evaluation. He and his are in agreement about this. (4) DIANA (acute kidney injury) Current visit: No Status: Acute Category: Medical Code(s): N17.9 - Acute kidney failure, unspecified Improving after overnight fluids. Given his pleural effusions on chest x-ray low-dose Lasix will be administered today. Watch kidney function tomorrow. (5) COPD with exacerbation Current visit: No Status: Acute Category: Medical Code(s): J44.1 - Chronic obstructive pulmonary disease with (acute) exacerbation Continue antibiotics. No lobar pneumonia visible.
--- NOTE | 2018-06-14 08:40 | Pharmacy Consult Notes ---
[facility] Pharmacy VTE Monitoring - Patient Demographics Admission date: 06/13/18 Report Date: 06/14/18 Time: 08:40 Allergies/Adverse Reactions: Patient Allergies No Known Allergies Allergy (Verified 06/14/18 00:25) Height: 1.73 m Weight: 61 kg Patient Problems: Current Active Problems Aortic valve stenosis (Chronic) HCAP (healthcare-associated pneumonia) (Acute) Acute delirium (Acute) - VTE Risk Labs: VTE Related Lab Results Hgb 10.0 g/dL (14.1-18.0) L D 06/14/18 05:45 Hct 31.3 % (42.0-52.0) L 06/14/18 05:45 Plt Count 224 K/mm3 (142-424) 06/14/18 05:45 BUN 25 mg/dL (7-18) H 06/14/18 05:45 Creatinine 1.36 mg/dL (0.70-1.30) H D 06/14/18 05:45 Estimated Creat Clear 42 mL/min (50-200) 06/14/18 05:45 VTE Score: 3 VTE Risk Level: Low Risk - Prophylaxis VTE Prophylaxis Ordered?: Yes Types of VTE Prophylaxis: TEDS Knee High Location of Applied Device: Bilateral Lower Extremeties - VTE Diagnosis Confirmed Treatment or plan recommended: Continue Current Treatment
[2018-06-14 08:44] LABS: Coronavirus 229E Not Detected (NotDetected); Coronavirus NL63 Not Detected (NotDetected); Coronavirus OC43 Not Detected (NotDetected); Coronovirus HKU1,PCR Not Detected (NotDetected)
--- NOTE | 2018-06-14 12:04 | Cardiology Report ---
PROCEDURE: 2-D M-mode and color Doppler study INDICATIONS FOR THE TEST: Chest pain+ COPD Heart Murmur Tobacco Smoking Palpitations Fatigue Syncope Edema Hypertension+Diabetes Mellitus Rheumatic Fever SOB+SEAY Obesity Hyperlipidemia Family History HD Additional History Pleural effusion, , Pneumonia PATIENT INFORMATION HEIGHT: 68 WEIGHT: 134 GENDER: Male B/P: 125/62 2-D/M-MODE INTERPRETATION: 2-D MEASUREMENTS OBSERVED VALUES IN CMS Right Ventricular Dimension (RVDd) 1.7 Interventricular Septum (Thickness)(IVsd) 0.7 Left Ventricular Internal Dimensions(LVIDd) 4.0 Left Ventricular Posterior Wall (Thickness)(LVPWd) 0.7 Aortic Root 3.1 Aortic Cusp Separation 0.4 Left Atrial Dimensions (LAD) 2.6 2D 1. Technically difficult study because of the patient's factor and poor acoustic windows 2. The left atrium is mildly enlarged, left ventricle is normal size, there is mild qualitative concentric left ventricular hypertrophy, visually estimated ejection fraction of 55% with no regional wall motion abnormality. 3. The right atrium and right ventricle are normal size and contractility. 4. The aortic valve is heavily thickened and calcified with severe restriction the leaflet mobility. 5. The mitral valve has dense mitral calcification which extends and both anterior and posterior mitral leaflet. 6. The tricuspid valve is grossly normal. 7. The pulmonic valve is poorly visualized. 8. No significant pericardial effusion noted DOPPLER INTERROGATION: 1. The maximum aortic out flow velocity recorded study 4.1 m/s, resulting in a mean gradient across valve of 39 mmHg, the valve area is not accurately calculated, this is likely representing severe aortic stenosis, there is no significant aortic insufficiency seen. 2. The mitral inflow velocity within normal range, there is no mitral stenosis, there is mild mitral regurgitation, grade 1 diastolic dysfunction seen with tissue Doppler evidence of raised left atrial pressure. 3. Mild tricuspid regurgitation, tricuspid regurgitation jet velocity is inadequate for calculation of the right ventricular systolic pressure. CONCLUSION: 1. Technically difficult study because of the patient's factor and poor acoustic windows 2. Mildly enlarged left atrium, normal left ventricular size, mild concentric left ventricular hypertrophy, visually estimated ejection fraction 55% with no regional wall motion abnormality, grade 1 diastolic dysfunction seen with tissue Doppler evidence of raised left atrial pressure. 3. Thickened and calcified aortic valve with mean gradient across valve of 40 mmHg, represents severe aortic stenosis, there is no significant aortic insufficiency present. 4. Mild mitral and tricuspid regurgitation 5. No significant pericardial effusion noted.
--- NOTE | 2018-06-14 14:00 | Consult Report ---
History of Present Illness Consult date: 06/14/18 Requesting physician: Jesus Alfred Consult reason: aortic stenosis Chief complaint: Aortic stenosis Additional Medical History:: 1. Severe Aortic Stenosis, echo, 03/2018 A. Echo, 06/2018 DOPPLER INTERROGATION: 1. The maximum aortic out flow velocity recorded study 4.1 m/s, resulting in a mean gradient across valve of 39 mmHg, the valve area is not accurately calculated, this is likely representing severe aortic stenosis, there is no significant aortic insufficiency seen. 2. The mitral inflow velocity within normal range, there is no mitral stenosis, there is mild mitral regurgitation, grade 1 diastolic dysfunction seen with tissue Doppler evidence of raised left atrial pressure. 3. Mild tricuspid regurgitation, tricuspid regurgitation jet velocity is inadequate for calculation of the right ventricular systolic pressure. CONCLUSION: 1. Technically difficult study because of the patient's factor and poor acoustic windows 2. Mildly enlarged left atrium, normal left ventricular size, mild concentric left ventricular hypertrophy, visually estimated ejection fraction 55% with no regional wall motion abnormality grade 1 diastolic dysfunction seen with tissue Doppler evidence of raised left atrial pressure. 3. Thickened and calcified aortic valve with mean gradient across valve of 40 mmHg, represents severe aortic stenosis, there is no significant aortic insufficiency present. 4. Mild mitral and tricuspid regurgitation 5. No significant pericardial effusion noted 2. Normal lexiscan myoview, 03/2018 3. DM, type 2, since about 2009 4. Nocturnal confusion 5. History of Non-Hodgkins Lymphoma, s/p chemotherapy >5 yrs ago History of present illness: 72-year-old white male who suffers from chronic pain syndrome, and takes oxycodone every 6 hours and gabapentin on a regular basis who was admitted earlier this week with lobar pneumonia. Discharged home after met inpatient goals of treatment, with negative cultures on empiric broad-spectrum therapy because of x-ray findings of lobar pneumonia. Initially did well but yesterday evening became somnolent and "blacked out" and fell down. Regained consciousness at home spontaneously but was unable to do anything under his own power and was brought to the emergency department. Found to have a temperature elevation x1 in the ER of 103 degrees, white count was slightly elevated, was very weak and disoriented and readmitted to hospital. This morning on examination patient is alert, oriented x3, and feeling much stronger. He is sitting on the side of the bed under his own power and eating breakfast well. Denies shortness of air, chest pain or GI distress. The above per Dr. Alfred Pt now relates that his near-syncopal and syncopal spells occur after taking NTG SL for his chest and left arm pain. He understands that if he does not want to have his aortic valve replaced, the episodes of SOA and syncope will continue and get worse and soon there will be no possibility of help. He has agreed to proceed with speaking to the cardiac surgeon and listening to the recommendations and making a final decision on treatment. Will work on transfer to to Dr. Roberson. [facility] History Medical History: Reports:: Cancer, Chronic Obstructive Pulmonary Disease (COPD) (Noted on recent xrays but he denies known history of COPD), Diabetes Mellitus Type 2, Heart Murmur (recent diagnosis of aortic valve stenosis, refused surgical intervention), Hyperlipidemia, Hypertension, Kidney Stones, Valvular Heart Disease (Critical aortic stenosis, patient has declined surgical evaluation) Denies:: Diabetes Mellitus Type 1, MRSA Have you ever received a pneumonia vaccine?: Yes Have you received a flu vaccine this season?: Yes Other Medical History: Reports: Arthritis, Cataracts, Hoarseness Laterality Cases: Left: Cataract Other Surgeries: Yes: Cancer Surgery, Cholecystectomy, Other (Lung biopsy.) Amputation: No Fractures: No - *Social History Educational Level: Completed GED/General Educational Development Smoking Status: Former smoker Tobacco Type: pipe, cigars Alcohol Intake: never Substance Use Type: denies use Occupational Status: retired Housing: house Household Members: spouse Travel in the last 8 weeks: None - Psychiatric History Expresses thoughts of harming self/others: None Suicide Plan Description: No Plan *Family Hx:: Heart Attack, Coronary Artery Disease Meds Home Medications Medication Instructions Recorded Confirmed Type furosemide 40 mg tablet 40 mg PO NEEDED PRN 03/19/18 06/14/18 History gabapentin 300 mg capsule 300 mg PO BID 03/19/18 06/14/18 History glimepiride 1 mg tablet 1 mg PO DAILY 03/19/18 06/14/18 History isosorbide mononitrate ER 30 mg 30 mg PO DAILY 03/19/18 06/14/18 History tablet,extended release 24 hr oxycodone 15 mg tablet 15 mg PO Q6HP PRN 03/19/18 06/14/18 History pravastatin 20 mg tablet 20 mg PO HS 10/15/18 01/10/19 History Azithromycin [Zithromax 250mg 250 mg PO DAILY 06/13/18 06/14/18 History tab] Cefdinir [Omnicef 300mg Capsule] 300 mg PO BID 06/13/18 06/14/18 History Allergies Allergy/AdvReac Type Severity Reaction Status Date / Time No Known Allergies Allergy Verified 06/14/18 00:25 Review of Systems - *Cardiovascular Reports chest pain, Reports shortness of breath - *Respiratory Reports shortness of breath - *Gastrointestinal Denies incontinent of stools - *Genitourinary Denies blood in urine - *Musculoskeletal Reports back pain - *Neurologic Reports abnormal walking, Reports confusion, Reports frequent falls, Denies abnormal hearing, Denies seizure-like activity Exam Vital signs and Labs for Last 24 Hours: Temp Pulse Resp BP Pulse Ox 97.9 F 68 20 125/62 97 06/14/18 07:37 06/14/18 07:37 06/14/18 07:37 06/14/18 07:37 06/14/18 10:22 Laboratory Results - last 24 hr 06/13/18 20:35: Urine Color Yellow, Urine Appearance Clear, Urine pH 6.0, Ur Specific [place] 1.025, Urine Protein 1+, Urine Glucose (UA) Negative, Urine Ketones Negative, Urine Blood Negative, Urine Nitrate Negative, Urine Bilirubin Negative, Urine Urobilinogen 0.2, Ur Leukocyte Esterase Negative, Urine RBC Occasional, Urine WBC 3-5, Ur Squamous Epith Cells Occasional, Amorphous Sediment 1+, Urine Bacteria 2+ 06/13/18 20:35: WBC 16.2 H D, RBC 3.73 L, Hgb 11.7 L, Hct 37.1 L, MCV 99.5 H, MCH 31.3 H, MCHC 31.4 L, RDW 13.1, Plt Count 263, MPV 7.3 L, Neut % (Auto) 67.1, Lymph % (Auto) 19.1, [place] % (Auto) 11.4 H, Eos % (Auto) 2.2, Baso % (Auto) 0.3, Neut # (Auto) 10.8 H, Lymph # (Auto) 3.1, [place] # (Auto) 1.8 H, Eos # (Auto) 0.4, Baso # (Auto) 0.0, Total Counted 100, Neutrophils % (Manual) 80 H, Lymphocytes % (Manual) 8 L, Monocytes % (Manual) 10 H, Eosinophils % (Manual) 2, Platelet Estimate Normal, Anisocytosis 1+ 06/13/18 20:35: Sodium 135 L, Potassium 3.6, Chloride 98, Carbon Dioxide 31, Anion Gap 9.6, BUN 30 H, Creatinine 1.78 H D, Estimated Creat Clear 29, Estimated GFR 38 L, Est GFR ( Amer) 46 L D, Glucose 189 H, Calcium 8.2 L, Total Bilirubin 0.8, AST 72 H, ALT 111 H, Alkaline Phosphatase 136 H, Total Protein 7.4, Albumin 2.6 L, Globulin 4.8 H, Albumin/Globulin Ratio 0.5 L 06/13/18 20:35: Total Creatine Kinase 111, CK-MB (CK-2) 0.9, CK-MB (CK-2) Rel Index 0.8, Troponin I 0.05 06/13/18 20:35: Lactate 1.3 06/13/18 21:11: Specimen Source L radial, O2 % 2lpm, ABG pH 7.45, ABG pCO2 39.7, ABG pO2 72.8 L, ABG HCO3 26.8 H, ABG Total CO2 28.0 H, ABG O2 Saturation 94, ABG Base Excess 2.7 H, Denilson Test Acceptable 06/14/18 02:45: Troponin I 0.06 06/14/18 05:45: Troponin I 0.05 06/14/18 05:45: WBC 10.0 D, RBC 3.10 L, Hgb 10.0 L D, Hct 31.3 L, MCV 101.1 H, MCH 31.7 H, MCHC 31.4 L, RDW 13.1, Plt Count 224, MPV 6.7 L, Neut % (Auto) 68.0, Lymph % (Auto) 18.1, [place] % (Auto) 9.6 H, Eos % (Auto) 4.0, Baso % (Auto) 0.3, Neut # (Auto) 6.8, Lymph # (Auto) 1.8, [place] # (Auto) 1.0, Eos # (Auto) 0.4, Baso # (Auto) 0.0 06/14/18 05:45: Sodium 139, Potassium 3.5, Chloride 102, Carbon Dioxide 29, Anion Gap 11.5, BUN 25 H, Creatinine 1.36 H D, Estimated Creat Clear 42, Estimated GFR 51 L, Est GFR ( Amer) 62 D, Glucose 126 H D, Calcium 7.7 L , Magnesium 1.7 06/14/18 05:53: POC Glucose 117 H 06/14/18 08:30: Chlamy pneumoniae PCR Not detected, Adenovirus (PCR) Not detected, B. pertussis DNA (PCR) Not detected, Coronavirus OC43 (PCR) Not detected, Coronavirus HKU1 (PCR) Not detected, Coronavirus 229E (PCR) Not detected, Coronavirus NL63 (PCR) Not detected, Human Metapneumovir PCR Not detected, Influenza A (H1) PCR Not detected, Influ A (H1N1/09) PCR Not detected, Influenza A (H3) PCR Not detected, Influenza Type A (PCR) Not detected, Influenza Type B (PCR) Not detected, M. pneumoniae (PCR) Not detected, Parainfluenza 1 (PCR) Not detected, Parainfluenza 2 (PCR) Not detected, Parainfluenza 3 (PCR) Not detected, Parainfluenza 4 (PCR) Not detected, RSV (PCR) Not detected, Entero/Rhino (PCR) Not detected 06/14/18 11:43: POC Glucose 97 I & O for Last 24 hours: Intake & Output 06/12/18 06/13/18 06/14/18 06/15/18 11:59 11:59 11:59 11:59 Intake Total 1036 / 1036 Output Total 1125 / 1125 Balance -89 / -89 Weight 134 lb 7.712 oz - *Routine Neck Exam Present: supple, carotid bruit. Absent: JVD - *Routine Respiratory Exam Present: CTA bilaterally. Absent: accessory muscle use, rales, rhonchi, wheezes - *Routine Cardiovascular Exam Present: RRR, murmur. Absent: gallop, rubs Comments: holosystolic murmur across the precordium with radiation into the neck - *Routine Abdominal Exam Present: soft. Absent: tenderness, distended, guarding - *Routine Extremities Exam Absent: edema, calf tenderness - *Routine Neurological Exam Present: alert, oriented X3, moving all extremities Assessment and Plan (1) Diabetes mellitus type 2, noninsulin dependent Current visit: Yes Status: Acute Category: Medical Code(s): E11.9 - Type 2 diabetes mellitus without complications (2) Acute delirium Current visit: Yes Status: Acute Category: Medical Code(s): R41.0 - Disorientation, unspecified (3) Aortic valve stenosis Current visit: Yes Status: Chronic Qualifiers: Cardiac valve disease etiology: nonrheumatic Qualified Code(s): I35.0 - Nonrheumatic aortic (valve) stenosis Category: Medical Code(s): I35.0 - Nonrheumatic aortic (valve) stenosis (4) DIANA (acute kidney injury) Current visit: No Status: Acute Category: Medical Code(s): N17.9 - Acute kidney failure, unspecified (5) COPD with exacerbation Current visit: No Status: Acute Category: Medical Code(s): J44.1 - Chronic obstructive pulmonary disease with (acute) exacerbation - Assessment and plan all Dx Assessment and Plan for all problems:: 1. Pt still has severe . Recommendation is for transfer to and discussion with Cardiac surgeon (Dr. Roberson) for workup and consideration of valve replacement.
--- NOTE | 2018-06-14 15:59 | Discharge Summary ---
General - General Admission date:: 06/14/18 Discharge date: 06/14/18 HPI HPI: 72-year-old white male who suffers from chronic pain syndrome, and takes oxycodone every 6 hours and gabapentin on a regular basis who was admitted earlier this week with lobar pneumonia. Discharged home after met inpatient goals of treatment, with negative cultures on empiric broad-spectrum therapy because of x-ray findings of lobar pneumonia. Initially did well but yesterday evening became somnolent and "blacked out" and fell down. Regained consciousness at home spontaneously but was unable to do anything under his own power and was brought to the emergency department. Found to have a temperature elevation x1 in the ER of 103 degrees, white count was slightly elevated, was very weak and disoriented and readmitted to hospital. This morning on examination patient is alert, oriented x3, and feeling much stronger. He is sitting on the side of the bed under his own power and eating breakfast well. Denies shortness of air, chest pain or GI distress. Hospital Course Hospital Course: Patient was admitted for IV antibiotics and further evaluation. He was given IV infusions of cefepime, clindamycin and levaquin. CXR showed CHF and Echocardiogram was ordered which showed thickened and calcified aortic valve with mean gradient across valve of 40 c/w severe aortic stenosis, EF 55%. Cardiology was consulted who discussed need for aortic valve replacement. Patient agrees to transport to tertiary care center for AVR. Cardiology consulted Dr. Roberson who agreed to accept patient. Transfer patient to [facility] via [facility] ambulance. Objective Vital signs: Temp Pulse Resp BP Pulse Ox 98.8 F 69 18 116/73 93 L 06/14/18 13:00 06/14/18 13:00 06/14/18 13:00 06/14/18 13:00 06/14/18 13:00 Narrative: See H & P from this morning Results Labs on day of discharge: Labs from last 24 hours 06/14/18 06/14/18 06/14/18 11:43 08:30 05:53 WBC RBC Hgb Hct MCV MCH MCHC RDW Plt Count MPV Neut % (Auto) Lymph % (Auto) [place] % (Auto) Eos % (Auto) Baso % (Auto) Neut # (Auto) Lymph # (Auto) [place] # (Auto) Eos # (Auto) Baso # (Auto) Total Counted Neutrophils % (Manual) Lymphocytes % (Manual) Monocytes % (Manual) Eosinophils % (Manual) Platelet Estimate Anisocytosis Specimen Source O2 % ABG pH ABG pCO2 ABG pO2 ABG HCO3 ABG Total CO2 ABG O2 Saturation ABG Base Excess Denilson Test Sodium Potassium Chloride Carbon Dioxide Anion Gap BUN Creatinine Estimated Creat Clear Estimated GFR Est GFR ( Amer) Glucose POC Glucose 97 117 H Lactate Calcium Magnesium Total Bilirubin AST ALT Alkaline Phosphatase Total Creatine Kinase CK-MB (CK-2) CK-MB (CK-2) Rel Index Troponin I Total Protein Albumin Globulin Albumin/Globulin Ratio Urine Color Urine Appearance Urine pH Ur Specific [place] Urine Protein Urine Glucose (UA) Urine Ketones Urine Blood Urine Nitrate Urine Bilirubin Urine Urobilinogen Ur Leukocyte Esterase Urine RBC Urine WBC Ur Squamous Epith Cells Amorphous Sediment Urine Bacteria Chlamy pneumoniae PCR Not detected Adenovirus (PCR) Not detected B. pertussis DNA (PCR) Not detected Coronavirus OC43 (PCR) Not detected Coronavirus HKU1 (PCR) Not detected Coronavirus 229E (PCR) Not detected Coronavirus NL63 (PCR) Not detected Human Metapneumovir PCR Not detected Influenza A (H1) PCR Not detected Influ A (H1N1/09) PCR Not detected Influenza A (H3) PCR Not detected Influenza Type A (PCR) Not detected Influenza Type B (PCR) Not detected M. pneumoniae (PCR) Not detected Parainfluenza 1 (PCR) Not detected Parainfluenza 2 (PCR) Not detected Parainfluenza 3 (PCR) Not detected Parainfluenza 4 (PCR) Not detected RSV (PCR) Not detected Entero/Rhino (PCR) Not detected 06/14/18 06/14/18 06/14/18 05:45 05:45 05:45 WBC 10.0 D RBC 3.10 L Hgb 10.0 L D Hct 31.3 L MCV 101.1 H MCH 31.7 H MCHC 31.4 L RDW 13.1 Plt Count 224 MPV 6.7 L Neut % (Auto) 68.0 Lymph % (Auto) 18.1 [place] % (Auto) 9.6 H Eos % (Auto) 4.0 Baso % (Auto) 0.3 Neut # (Auto) 6.8 Lymph # (Auto) 1.8 [place] # (Auto) 1.0 Eos # (Auto) 0.4 Baso # (Auto) 0.0 Total Counted Neutrophils % (Manual) Lymphocytes % (Manual) Monocytes % (Manual) Eosinophils % (Manual) Platelet Estimate Anisocytosis Specimen Source O2 % ABG pH ABG pCO2 ABG pO2 ABG HCO3 ABG Total CO2 ABG O2 Saturation ABG Base Excess Denilson Test Sodium 139 Potassium 3.5 Chloride 102 Carbon Dioxide 29 Anion Gap 11.5 BUN 25 H Creatinine 1.36 H D Estimated Creat Clear 42 Estimated GFR 51 L Est GFR ( Amer) 62 D Glucose 126 H D POC Glucose Lactate Calcium 7.7 L Magnesium 1.7 Total Bilirubin AST ALT Alkaline Phosphatase Total Creatine Kinase CK-MB (CK-2) CK-MB (CK-2) Rel Index Troponin I 0.05 Total Protein Albumin Globulin Albumin/Globulin Ratio Urine Color Urine Appearance Urine pH Ur Specific [place] Urine Protein Urine Glucose (UA) Urine Ketones Urine Blood Urine Nitrate Urine Bilirubin Urine Urobilinogen Ur Leukocyte Esterase Urine RBC Urine WBC Ur Squamous Epith Cells Amorphous Sediment Urine Bacteria Chlamy pneumoniae PCR Adenovirus (PCR) B. pertussis DNA (PCR) Coronavirus OC43 (PCR) Coronavirus HKU1 (PCR) Coronavirus 229E (PCR) Coronavirus NL63 (PCR) Human Metapneumovir PCR Influenza A (H1) PCR Influ A (H1N1/09) PCR Influenza A (H3) PCR Influenza Type A (PCR) Influenza Type B (PCR) M. pneumoniae (PCR) Parainfluenza 1 (PCR) Parainfluenza 2 (PCR) Parainfluenza 3 (PCR) Parainfluenza 4 (PCR) RSV (PCR) Entero/Rhino (PCR) 06/14/18 06/13/18 06/13/18 02:45 21:11 20:35 WBC RBC Hgb Hct MCV MCH MCHC RDW Plt Count MPV Neut % (Auto) Lymph % (Auto) [place] % (Auto) Eos % (Auto) Baso % (Auto) Neut # (Auto) Lymph # (Auto) [place] # (Auto) Eos # (Auto) Baso # (Auto) Total Counted Neutrophils % (Manual) Lymphocytes % (Manual) Monocytes % (Manual) Eosinophils % (Manual) Platelet Estimate Anisocytosis Specimen Source L radial O2 % 2lpm ABG pH 7.45 ABG pCO2 39.7 ABG pO2 72.8 L ABG HCO3 26.8 H ABG Total CO2 28.0 H ABG O2 Saturation 94 ABG Base Excess 2.7 H Denilson Test Acceptable Sodium Potassium Chloride Carbon Dioxide Anion Gap BUN Creatinine Estimated Creat Clear Estimated GFR Est GFR ( Amer) Glucose POC Glucose Lactate 1.3 Calcium Magnesium Total Bilirubin AST ALT Alkaline Phosphatase Total Creatine Kinase CK-MB (CK-2) CK-MB (CK-2) Rel Index Troponin I 0.06 Total Protein Albumin Globulin Albumin/Globulin Ratio Urine Color Urine Appearance Urine pH Ur Specific [place] Urine Protein Urine Glucose (UA) Urine Ketones Urine Blood Urine Nitrate Urine Bilirubin Urine Urobilinogen Ur Leukocyte Esterase Urine RBC Urine WBC Ur Squamous Epith Cells Amorphous Sediment Urine Bacteria Chlamy pneumoniae PCR Adenovirus (PCR) B. pertussis DNA (PCR) Coronavirus OC43 (PCR) Coronavirus HKU1 (PCR) Coronavirus 229E (PCR) Coronavirus NL63 (PCR) Human Metapneumovir PCR Influenza A (H1) PCR Influ A (H1N1/) PCR Influenza A (H3) PCR Influenza Type A (PCR) Influenza Type B (PCR) M. pneumoniae (PCR) Parainfluenza 1 (PCR) Parainfluenza 2 (PCR) Parainfluenza 3 (PCR) Parainfluenza 4 (PCR) RSV (PCR) Entero/Rhino (PCR) 06/13/18 06/13/18 06/13/18 20:35 20:35 20:35 WBC 16.2 H D RBC 3.73 L Hgb 11.7 L Hct 37.1 L MCV 99.5 H MCH 31.3 H MCHC 31.4 L RDW 13.1 Plt Count 263 MPV 7.3 L Neut % (Auto) 67.1 Lymph % (Auto) 19.1 [place] % (Auto) 11.4 H Eos % (Auto) 2.2 Baso % (Auto) 0.3 Neut # (Auto) 10.8 H Lymph # (Auto) 3.1 [place] # (Auto) 1.8 H Eos # (Auto) 0.4 Baso # (Auto) 0.0 Total Counted 100 Neutrophils % (Manual) 80 H Lymphocytes % (Manual) 8 L Monocytes % (Manual) 10 H Eosinophils % (Manual) 2 Platelet Estimate Normal Anisocytosis 1+ Specimen Source O2 % ABG pH ABG pCO2 ABG pO2 ABG HCO3 ABG Total CO2 ABG O2 Saturation ABG Base Excess Denilson Test Sodium 135 L Potassium 3.6 Chloride 98 Carbon Dioxide 31 Anion Gap 9.6 BUN 30 H Creatinine 1.78 H D Estimated Creat Clear 29 Estimated GFR 38 L Est GFR ( Amer) 46 L D Glucose 189 H POC Glucose Lactate Calcium 8.2 L Magnesium Total Bilirubin 0.8 AST 72 H ALT 111 H Alkaline Phosphatase 136 H Total Creatine Kinase 111 CK-MB (CK-2) 0.9 CK-MB (CK-2) Rel Index 0.8 Troponin I 0.05 Total Protein 7.4 Albumin 2.6 L Globulin 4.8 H Albumin/Globulin Ratio 0.5 L Urine Color Urine Appearance Urine pH Ur Specific [place] Urine Protein Urine Glucose (UA) Urine Ketones Urine Blood Urine Nitrate Urine Bilirubin Urine Urobilinogen Ur Leukocyte Esterase Urine RBC Urine WBC Ur Squamous Epith Cells Amorphous Sediment Urine Bacteria Chlamy pneumoniae PCR Adenovirus (PCR) B. pertussis DNA (PCR) Coronavirus OC43 (PCR) Coronavirus HKU1 (PCR) Coronavirus 229E (PCR) Coronavirus NL63 (PCR) Human Metapneumovir PCR Influenza A (H1) PCR Influ A (H1N1/) PCR Influenza A (H3) PCR Influenza Type A (PCR) Influenza Type B (PCR) M. pneumoniae (PCR) Parainfluenza 1 (PCR) Parainfluenza 2 (PCR) Parainfluenza 3 (PCR) Parainfluenza 4 (PCR) RSV (PCR) Entero/Rhino (PCR) 06/13/18 20:35 WBC RBC Hgb Hct MCV MCH MCHC RDW Plt Count MPV Neut % (Auto) Lymph % (Auto) [place] % (Auto) Eos % (Auto) Baso % (Auto) Neut # (Auto) Lymph # (Auto) [place] # (Auto) Eos # (Auto) Baso # (Auto) Total Counted Neutrophils % (Manual) Lymphocytes % (Manual) Monocytes % (Manual) Eosinophils % (Manual) Platelet Estimate Anisocytosis Specimen Source O2 % ABG pH ABG pCO2 ABG pO2 ABG HCO3 ABG Total CO2 ABG O2 Saturation ABG Base Excess Denilson Test Sodium Potassium Chloride Carbon Dioxide Anion Gap BUN Creatinine Estimated Creat Clear Estimated GFR Est GFR ( Amer) Glucose POC Glucose Lactate Calcium Magnesium Total Bilirubin AST ALT Alkaline Phosphatase Total Creatine Kinase CK-MB (CK-2) CK-MB (CK-2) Rel Index Troponin I Total Protein Albumin Globulin Albumin/Globulin Ratio Urine Color Yellow Urine Appearance Clear Urine pH 6.0 Ur Specific [place] 1.025 Urine Protein 1+ Urine Glucose (UA) Negative Urine Ketones Negative Urine Blood Negative Urine Nitrate Negative Urine Bilirubin Negative Urine Urobilinogen 0.2 Ur Leukocyte Esterase Negative Urine RBC Occasional Urine WBC 3-5 Ur Squamous Epith Cells Occasional Amorphous Sediment 1+ Urine Bacteria 2+ Chlamy pneumoniae PCR Adenovirus (PCR) B. pertussis DNA (PCR) Coronavirus OC43 (PCR) Coronavirus HKU1 (PCR) Coronavirus 229E (PCR) Coronavirus NL63 (PCR) Human Metapneumovir PCR Influenza A (H1) PCR Influ A (H1N1/) PCR Influenza A (H3) PCR Influenza Type A (PCR) Influenza Type B (PCR) M. pneumoniae (PCR) Parainfluenza 1 (PCR) Parainfluenza 2 (PCR) Parainfluenza 3 (PCR) Parainfluenza 4 (PCR) RSV (PCR) Entero/Rhino (PCR) DS: Diagnosis - Discharge Diagnosis (1) Diabetes mellitus type 2, noninsulin dependent Status: Acute (2) Acute delirium Status: Acute (3) Aortic valve stenosis Status: Chronic (4) DIANA (acute kidney injury) Status: Acute (5) COPD with exacerbation Status: Acute Discharge Plan - Patient Discharge Instructions - Follow up Plan Home Medications: Home Medications Medication Instructions Recorded Confirmed Type furosemide 40 mg tablet 40 mg PO NEEDED PRN 03/19/18 06/14/18 History gabapentin 300 mg capsule 300 mg PO BID 03/19/18 06/14/18 History glimepiride 1 mg tablet 1 mg PO DAILY 03/19/18 06/14/18 History isosorbide mononitrate ER 30 mg 30 mg PO DAILY 03/19/18 06/14/18 History tablet,extended release 24 hr oxycodone 15 mg tablet 15 mg PO Q6HP PRN 03/19/18 06/14/18 History pravastatin 20 mg tablet 20 mg PO HS 03/19/18 06/14/18 History Azithromycin [Zithromax 250mg 250 mg PO DAILY 06/13/18 06/14/18 History tab] Cefdinir [Omnicef 300mg Capsule] 300 mg PO BID 06/13/18 06/14/18 History Prescriptions/Medication Reconciliation: No Action pravastatin 20 mg tablet 20 mg PO HS furosemide 40 mg tablet 40 mg PO NEEDED PRN PRN Reason: Edema glimepiride 1 mg tablet 1 mg PO DAILY oxycodone 15 mg tablet 15 mg PO Q6HP PRN PRN Reason: pain isosorbide mononitrate ER 30 mg tablet,extended release 24 hr 30 mg PO DAILY gabapentin 300 mg capsule 300 mg PO BID Cefdinir [Omnicef 300mg Capsule] 300 mg PO BID Azithromycin [Zithromax 250mg tab] 250 mg PO DAILY
== END 2018-06-14 20:10 | disposition short-term general hospital (02) | DRG 191 ==
LOC: ER 20:21 → ICU 20:21
PROVIDERS: ADMIT Emergency Medicine; ATTEND Internal Medicine Adolescent Medicine
CPT/HCPCS: 36415; 70450; 71010; 71045; 72125; 72170; 80048; 80053; 81001; 82550; 82553; 82803; 82962; 83605; 83735; 84484; 85007; 85025; 87040; 87086; 87486; 87581; 87633; 87798; 93005; 93306; 96365; 96366; 96367; 97162; 97165; 99285; J0692; J1956; J2405

== ENCOUNTER → 2018-08-07 10:27 | Outpatient (CLI) | payer MEDICARE, OTHER, SELFPAY ==
[2018-08-07 11:44] LABS: Basophils # 0.1 K/mm3 (0-0.2); Eosinophils # 0.7 K/mm3 (0.0-0.4); Eosinophils % 11.3 % (0.1-12.0); Hematocrit 31.8 % (42.0-52.0); Hemoglobin 9.7 g/dL (14.1-18.0); Lymphocytes # 2.5 K/mm3 (0.7-4.5); Lymphocytes % 39.6 % (10-50); Mean Corpuscular HGB Conc 30.4 g/dL (31.8-35.4); Mean Corpuscular Hemoglobin 31.3 pg (27.0-31.2); Mean Corpuscular Volume 102.9 fl (80-94); Mean Platelet Volume 7.8 fl (7.4-10.4); Monocytes # 0.6 K/mm3 (0.1-1.0); Monocytes % 9.7 % (1.7-9.3); Neutrophils # 2.4 K/mm3 (1.8-7.8); Neutrophils % 38.5 % (37.0-80.0); Platelet Count 222 K/mm3 (142-424); Red Blood Count 3.09 M/mm3 (4.60-6.20); Red Cell Distribution Width 16.2 % (11.5-17.5); White Blood Count 6.2 K/mm3 (4.8-10.8)
[2018-08-07 12:02] LABS: Anion Gap 16.1 mEq/L (5-15); Blood Urea Nitrogen 30 mg/dL (7-18); Calcium 9.1 mg/dL (8.5-10.1); Carbon Dioxide 30 mmol/L (21.0-32.0); Chloride 99 mmol/L (98-107); Creatinine,Serum 2.02 mg/dL (0.70-1.30); Estimated Glomerular Filt Rate 32 ml/min (>60); GFR (African American) 39 ML/MIN (>60); Glucose 76 mg/dL (74-106); Potassium 4.1 mmoL/L (3.5-5.1); Sodium 141 mmol/L (136-145)
== END ==
PROVIDERS: Visit Provider Thoracic Surgery (Cardiothoracic Vascular Surgery)
DX: D62 Acute posthemorrhagic anemia (principal); I35.0 Nonrheumatic aortic (valve) stenosis
CPT/HCPCS: 36415; 80048; 85025

== ENCOUNTER → 2018-10-03 15:58 | Outpatient (CLI) | payer MEDICARE, OTHER, SELFPAY ==
--- NOTE | 2018-10-03 16:03 | XR_ITS ---
EXAM: XR cervical spine 5V HISTORY: Neck pain ITS.REASON: CERVICALGIA ORDERING PHYSICIAN: Sachin Jimenez PATIENT AGE: 73 years COMPARISON: None FINDINGS: Normal alignment. There is degenerative disc disease at C3-C4 C4-C5 and C5-C6. There is mild foraminal narrowing on the left at C3-C4 with mild facet arthritic changes at C3-C4 and C5. No fracture or dislocation. No lytic or blastic change. Carotid artery calcifications are noted. IMPRESSION: Cervical spondylosis with degenerative disc disease, facet arthritic change and foraminal narrowing
== END ==
PROVIDERS: PCP Internal Medicine; Visit Provider Internal Medicine
DX: M54.2 Cervicalgia (principal)
CPT/HCPCS: 72050

== ENCOUNTER → 2019-04-02 14:56 | Outpatient (CLI) | payer MEDICARE, OTHER, SELFPAY ==
--- NOTE | 2019-04-02 15:00 | XR_ITS ---
PROCEDURE: XR CHEST 2V CLINICAL HISTORY: COUGH,SPUTUM,SOB COMPARISON: CXR2V XR chest 2V from 03/16/2018 CXR1VP XR chest portable from 06/10/2018 CXR2 XR chest AP from 06/13/2018 FINDINGS: Prior median sternotomy with aortic valve replacement. Normal heart size. COPD. Scattered areas of scarring. Old granulomatous disease. Degenerative changes thoracic spine. IMPRESSION: COPD with chronic changes, no acute finding Dictated by: Denilson Calle MD 04/02/2019 15:41 Electronically signed by Denilson Calle MD in [place] 04/02/2019 15:41
== END ==
PROVIDERS: PCP Internal Medicine; Visit Provider Internal Medicine
DX: R05 Cough (principal); R09.89 Other specified symptoms and signs involving the circulatory and respiratory systems
CPT/HCPCS: 71046

== ENCOUNTER 2019-04-18 07:03 | Inpatient (IN) ==
--- NOTE | 2019-04-18 07:18 | Emergency Department Note ---
ED Disposition Clinical Impression: Diabetes mellitus type 2, noninsulin dependent, Renal insufficiency, RBBB (right bundle branch block with left anterior fascicular block) Hip fracture Qualifiers: Encounter type: initial encounter Fracture type: closed Laterality: left Qualified Code(s): S72.002A - Fracture of unspecified part of neck of left femur, initial encounter for closed fracture Disposition: Admitted As Inpatient Condition on Discharge: Good - Critical Care Critical Care Time: No Attestation: On , the high probability of a clinically significant, sudden or life threatening deterioration of the following system(s) required my full and direct attention, intervention and personal management. The time I documented below is in addition to time spent performing reported procedures but includes the following listed in this critical care notation. Medical Decision Making - Medical Records Medical records reviewed: Yes: I reviewed the patient's medical records. - Quintin Inquiry Pt receiving controlled substance: No Vital Signs: 04/18/19 07:05 04/18/19 07:19 04/18/19 07:26 Temperature 97.2 F L Temperature Source Oral Pulse Rate [Left Radial] 72 72 72 Respiratory Rate 16 16 18 Blood Pressure [Right Arm] 113/58 L 110/50 L 110/60 Blood Pressure Mean [Right Arm] 76 70 76 Blood Pressure Source [Right Arm] Automatic Cuff Blood Pressure Position [Right Arm] Sitting Supine 02 Sat by Pulse Oximetry 93 L 95 97 Oxygen Delivery Method Room Air Room Air Room Air 04/18/19 08:01 04/18/19 08:23 04/18/19 08:32 Temperature Temperature Source Pulse Rate [Left Radial] 72 75 79 Respiratory Rate 16 16 Blood Pressure [Right Arm] 139/68 126/60 101/55 L Blood Pressure Mean [Right Arm] 91 82 70 Blood Pressure Source [Right Arm] Blood Pressure Position [Right Arm] Sitting Sitting Sitting 02 Sat by Pulse Oximetry 93 L 93 L 93 L Oxygen Delivery Method Room Air Room Air 04/18/19 08:41 Temperature Temperature Source Pulse Rate [Left Radial] 75 Respiratory Rate 16 Blood Pressure [Right Arm] 101/55 L Blood Pressure Mean [Right Arm] 70 Blood Pressure Source [Right Arm] Automatic Cuff Blood Pressure Position [Right Arm] Sitting 02 Sat by Pulse Oximetry 93 L Oxygen Delivery Method Room Air - Lab Data Lab results reviewed: Yes: I reviewed the patient's lab results. Lab Results 04/18/19 07:17: WBC 6.4, RBC 3.44 L, Hgb 11.5 L, Hct 35.2 L, MCV 102.4 H, MCH 33.4 H, MCHC 32.7, RDW 13.6, Plt Count 215, MPV 8.0, Neut % (Auto) 28.4 L, Lymph % (Auto) 32.6, [place] % (Auto) 12.8 H, Eos % (Auto) 25.4 H, Baso % (Auto) 0.8, Neut # (Auto) 1.8, Lymph # (Auto) 2.1, [place] # (Auto) 0.8, Eos # (Auto) 1.6 H, Baso # (Auto) 0.1 04/18/19 07:17: Sodium 138, Potassium 3.5, Chloride 99, Carbon Dioxide 33 H, Anion Gap 9.5, BUN 51 H, Creatinine 2.26 H, Estimated Creat Clear 24, Estimated GFR 29 L, Est GFR ( Amer) 34 L, Glucose 220 H, Calcium 8.8, Total Bilirubin 0.7, Direct Bilirubin 0.2, Indirect Bilirubin 0.5, AST 23, ALT 19, Alkaline Phosphatase 236 H, Troponin I < 0.02, Total Protein 7.3, Albumin 3.4 Result diagrams: 04/18/19 07:17 04/18/19 07:17 Orders (Tests/Meds): ED MEDICATIONS Discontinued Medications Generic Name Dose Route Start Last Admin Trade Name Freq PRN Reason Stop Dose Admin Sodium Chloride 1,000 mls @ 999 mls/hr 04/18/19 07:15 04/18/19 07:25 Sod Chlor 0.9% 1000ml Bag IV 04/18/19 08:15 999 mls/hr .Q1H1M YONG Administration Morphine Sulfate 2 mg 04/18/19 07:15 04/18/19 07:25 Morphine 2mg/Ml Syringe IV 04/18/19 07:16 2 mg ONCE ONE Administration Ondansetron HCl 4 mg 04/18/19 07:15 04/18/19 07:25 Zofran 4mg/2ml Vial IV 04/18/19 07:16 4 mg ONCE ONE Administration ORDERS Category Date Time Status CT cervical spine wo con Stat Cat Scan 04/18/19 07:[address] head/brain wo con Stat Cat Scan 04/18/19 07:11 Taken Hip XR left minimum 2 views [XR hip LT 2-3V w/pelvis] Exams 04/18/19 07:10 Taken Stat XR chest portable Stat Exams 04/18/19 07:10 Taken - Radiology Data #1 Image(s): Chest, Pelvis, Hip Image Reviewed: Yes I reviewed the patient's radiology image Preliminary Findings: Abnormal (hip fx seen ) - CT Data CT Scan: Head, C-Spine Time Received: 09:[address] Reviewed: Yes: I have viewed the radiologist's interpretation Preliminary Findings: No Fracture Seen - ECG Data Tracing #1 Normal Sinus Rhythm: Yes Ischemic changes: non-specific ST-T wave changes Conduction abnormalities present: LAFB, RBBB - Physician Consults Physician Consulted: luzma Reason -: Admission Fall HPI - General Chief Complaint: Fall Stated Complaint: fall Time Seen by Provider: 04/18/19 07:15 Mode of Arrival: EMS Source of Information: Patient, Relative, EMS, Medical Record Limitations: No Limitations Description of Symptoms (Recalled from ER Triage Doc. by RN): to ed per squad pt states got up this am and became dizzy fell c/o lt hip pain. pt denies LOC. pt alert oriented x 4 lt leg shortened and rotated - History of Present Illness HPI Narrative: up to let dog out and felt dizzyness and fell with lt hip pain - MD complaint: fall Onset (ago): hour(s) Fall from: standing Fall witnessed: no Place fall occurred: home Loss of consciousness: none Prolonged down time: no Context: other (light - headed ) Location of injury: head, neck Location of injury - extremities: Left: thigh Severity: moderate Associated symptoms (after fall): denies - Related Data Home Medications Medication Instructions Recorded Confirmed furosemide 40 mg tablet 40 mg PO NEEDED PRN 03/19/18 04/18/19 gabapentin 300 mg capsule 300 mg PO BID 03/19/18 04/18/19 glimepiride 1 mg tablet 1 mg PO DAILY 03/19/18 04/18/19 isosorbide mononitrate ER 30 mg 30 mg PO DAILY 03/19/18 04/18/19 tablet,extended release 24 hr oxycodone 15 mg tablet 15 mg PO Q6HP PRN 03/19/18 04/18/19 pravastatin 20 mg tablet 20 mg PO HS 03/19/18 04/18/19 aspirin 81 mg tablet,delayed 81 mg PO DAILY 09/04/18 04/18/19 release metoprolol tartrate 25 mg tablet 12.5 mg PO BID tab 09/04/18 04/18/19 Allergies Allergy/AdvReac Type Severity Reaction Status Date / Time No Known Allergies Allergy Verified 09/04/18 10:50 [facility] History - Hepatitis A Screen Drug use history?: No High risk sexual behaviors?: No History of sexually transmitted infection?: No Currently employed?: No Childcare worker?: No Do you have indoor plumbing?: Yes Do you have electricity?: Yes Attestation statement:: This patient has been screened for Hepatitis A risk factors. I have reviewed the patient's past medical history: Yes Medical History: Reports:: Cancer, Chronic Obstructive Pulmonary Disease (COPD), Coronary Artery Disease, Diabetes Mellitus Type 2, Heart Murmur, Hyperlipidemia, Hypertension, Kidney Stones, Valvular Heart Disease Denies:: Diabetes Mellitus Type 1, MRSA Other Medical History: Reports: Arthritis, Cataracts, Hoarseness Other Surgeries: Yes: CABG, Cancer Surgery, Cardiac Surgery, Cholecystectomy, Other Amputation: No Fractures: No - Social History Smoking Status: Former smoker Tobacco Type: pipe, cigars Alcohol Intake: never Substance Use Type: denies use Occupational Status: retired, other Housing: house Household Members: spouse Family Hx:: Heart Attack, Coronary Artery Disease Comment: Mother-[place] at 27(). Father-[place] at 60's (). Brother-CAD ROS Obtained: Yes All systems reviewed & no additional complaints - Constitutional Constitutional: Denies fever(s) - Eyes Eyes: Denies change in vision - ENT Ears, Nose, Mouth, and Throat: Denies sore throat - Cardiovascular Cardiovascular: Reports as per HPI, Denies chest pain, Denies dyspnea, Reports lightheadedness - Respiratory Respiratory: No cough - Gastrointestinal Gastrointestingal: Denies: abdominal pain - Genitourinary Male Genitourinary: Denies flank pain - Musculoskeletal Musculoskeletal: Reports as per HPI, Reports joint pain, Reports limited range of motion, Reports neck pain - Integumentary/Breasts Skin/Breast: Denies rash - Neurologic Neurologic: Denies frequent falls, Denies seizure-like activity Physical Exam - General General appearance: alert, in no apparent distress - Head Head exam: normocephalic - Eye Eye exam: Present: PERRL, EOMI - ENT ENT exam: Present: mucous membranes dry - Neck Neck exam: Present: trachea midline - Respiratory Respiratory exam: Absent: respiratory distress - Cardiovascular Cardiovascular exam: Present: regular rate, systolic murmur, +S4 - Abdominal Exam Abdominal exam: Present: soft - Expanded Lower Extremity Exam Left Hip/Pelvis exam: Present: pelvis stable, external rotation, hip pain on leg movement. Absent: full ROM - Neurological Exam Neurological exam: Present: alert, oriented X3, CN II-XII intact - Psychiatric Psychiatric exam: Present: normal affect - Skin Skin exam: Absent: rash
[2019-04-18 07:31] LABS: Basophils # 0.1 K/mm3 (0-0.2); Basophils % 0.8 % (0.1-2.0); Eosinophils # 1.6 K/mm3 (0.0-0.4); Eosinophils % 25.4 % (0.1-12.0); Hematocrit 35.2 % (42.0-52.0); Hemoglobin 11.5 g/dL (14.1-18.0); Lymphocytes # 2.1 K/mm3 (0.7-4.5); Lymphocytes % 32.6 % (10-50); Mean Corpuscular HGB Conc 32.7 g/dL (31.8-35.4); Mean Corpuscular Volume 102.4 fl (80-94); Monocytes # 0.8 K/mm3 (0.1-1.0); Monocytes % 12.8 % (1.7-9.3); Neutrophils # 1.8 K/mm3 (1.8-7.8); Neutrophils % 28.4 % (37.0-80.0); Platelet Count 215 K/mm3 (142-424); Red Blood Count 3.44 M/mm3 (4.60-6.20); Red Cell Distribution Width 13.6 % (11.5-17.5); White Blood Count 6.4 K/mm3 (4.8-10.8)
[2019-04-18 07:42] LABS: Alanine Aminotransferase 19 U/L (12-78); Albumin Level 3.4 gm/dL (3.4-5.0); Alkaline Phosphatase 236 U/L (46-116); Anion Gap 9.5 mEq/L (5-15); Bilirubin,Direct 0.2 mg/dL (0.0-0.2); Bilirubin,Indirect 0.5 mg/dL (0.0-0.9); Bilirubin,Total 0.7 mg/dL (0.2-1.0); Blood Urea Nitrogen 51 mg/dL (7-18); Calcium 8.8 mg/dL (8.5-10.1); Carbon Dioxide 33 mmol/L (21.0-32.0); Chloride 99 mmol/L (98-107); Glucose 220 mg/dL (74-106); Sodium 138 mmol/L (136-145); Total Protein,Serum 7.3 gm/dL (6.4-8.2)
[2019-04-18 07:46] LABS: Aspartate Amino Transferase 23 U/L (15-37)
[2019-04-18 09:42] LABS: Microscopic, Urine URINE MICROSCOPIC (MICROSCOPIC)
[2019-04-18 09:43] LABS: Appearance,Urine CLEAR (Clear); Bilirubin,Urine Negative (Negative); Blood, Urine TRACE-I (Negative); Color,Urine YELLOW (Yellow); Glucose,Urine (UA) Negative (Negative); Ketones,Urine Negative (Negative); Leukocyte Esterase,Urine Negative (Negative); Protein,Urine Negative (Negative); Specific Gravity, Urine 1.015 (1.005-1.030); Urobilinogen,Urine 0.2 EU/dl (0.2)
[2019-04-18 09:56] LABS: Squamous Epithelial Cell,Urine Occasional #/hpf (0-5)
--- NOTE | 2019-04-18 11:30 | Electrocardiograph Report ---
APPROVED REPORT Exam: Resting ECG HR:72 bpm ECG Measurements Heart Rate 72 AXES LA 274 P 59 QRSd 150 QRS -65 QT 438 T70 QTc 479 <Conclusion> Sinus rhythm with 1st degree AV block Right bundle branch block Left anterior fascicular block Bifascicular block Left ventricular hypertrophy with repolarization abnormality No changes from baseline Abnormal ECG Electronically signed by : Jesus Alfred, 04/18/2019 11:30:27
--- NOTE | 2019-04-18 11:47 | Consult Report ---
History of Present Illness Consult date: 04/18/19 Consult reason: pre-op evaluation Chief complaint: Left hip pain/fracture Additional Medical History:: 1. Severe Aortic Stenosis, echo, 03/2018 A. Echo, 06/2018, mild conc LVH, LVEF 55%, grade I diastolic dysfunction, t hickened and calcified aortic valve with mean gradient of 40 mmHg representing severe aortic stenosis. Mild MR and TR. B. Status post single-vessel CABG and aortic valve replacement with 21 mm t rifecta pericardial prosthesis, 07/16/2018 2. CABG of one vessel with TAPIA to LAD, 07/16/2018, Dr. Roberson, 3. DM, type 2, since about 2009 4. Nocturnal confusion 5. History of Non-Hodgkins Lymphoma, s/p chemotherapy >5 yrs ago A. 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 Left hip fracture, 04/18/2019 7. Abnormal EKG with bifascicular block (right bundle branch block and left anterior fascicular block, 04/18/2019) 8. CKD, stage IIIb with GFR 29 and Cr 2.26 on 04/18/2019 History of present illness: 73-year-old white male with history of bypass and aortic valve replacement with trifecta bioprosthetic valve 07/16/2018 presented to the emergency department for pain in the left hip after fall. Patient states he got up out of bed walk to the door to let his dog out and fell after becoming dizzy. He denied any chest pain, pressure or tightness. Patient noted left hip pain after fall and was transported to the ER for evaluation. X-ray of the left hip showed mildly displaced intertrochanteric hip fracture. Patient admitted for further evaluation and treatment. Cardiology consulted for preop evaluation. Patient does admit to using Lasix recently due to lower extremity edema and shortness of breath. Last office visit in September 2018 patient was doing well at which time an echocardiogram was recommended in 6 weeks but patient failed to show for follow- up. Regarding his diabetes he states he does not take anything for it, however his states he takes glimepiride. [facility] History Medical History: Reports:: Cancer (non hodgkins lymphoma 2005), Chronic Obstructive Pulmonary Disease (COPD), Coronary Artery Disease, Diabetes Mellitus Type 2, Heart Murmur, Hyperlipidemia, Hypertension, Kidney Stones, Valvular Heart Disease Denies:: Diabetes Mellitus Type 1, MRSA *Have you ever received a pneumonia vaccine?: Yes *Have you received a flu vaccine this season?: Yes Other Medical History: Reports: Arthritis, Cataracts (removed from left eye), Hoarseness Other Surgeries: Yes: CABG, Cancer Surgery (biopsy), Cardiac Surgery, Cholecystectomy, Other Amputation: No Fractures: No - *Social History Educational Level: Completed GED/General Educational Development Smoking Status: Former smoker Tobacco Type: pipe, cigars Alcohol Intake: never Substance Use Type: denies use *Occupational Status:: retired Housing: house Household Members: spouse *Travel in the last 8 weeks: None Family Hx:: Heart Attack, Coronary Artery Disease Meds Home Medications Medication Instructions Recorded Confirmed Type furosemide 40 mg tablet 40 - 80 mg PO DAILY PRN 03/19/18 04/18/19 History gabapentin 300 mg capsule 300 mg PO BID 03/19/18 04/18/19 History oxycodone 15 mg tablet 15 mg PO Q6HP 03/19/18 04/18/19 History aspirin 81 mg tablet,delayed 81 mg PO DAILY 09/04/18 04/18/19 History release metoprolol tartrate 25 mg tablet 12.5 mg PO BID tab 09/04/18 04/18/19 History Atorvastatin Calcium [Atorvastatin 40 mg PO HS 04/18/19 04/18/19 History 40mg Tab] Allergies Allergy/AdvReac Type Severity Reaction Status Date / Time No Known Allergies Allergy Verified 09/04/18 10:50 Review of Systems - Eyes Reports blurry vision - *Cardiovascular Reports shortness of breath with activity, Denies chest pain - *Respiratory Denies cough, Denies shortness of breath with activity - *Gastrointestinal Denies abdominal pain, Denies nausea, Denies vomiting - *Genitourinary Denies blood in urine - *Musculoskeletal Reports joint pain, Reports back pain - *Neurologic Denies frequent falls, Denies seizure-like activity Exam Vital signs and Labs for Last 24 Hours: Temp Pulse Resp BP Pulse Ox 98.1 F 80 18 113/54 L 93 L 04/18/19 10:00 04/18/19 10:00 04/18/19 10:00 04/18/19 10:00 04/18/19 10:00 Laboratory Results - last 24 hr 04/18/19 07:17: WBC 6.4, RBC 3.44 L, Hgb 11.5 L, Hct 35.2 L, MCV 102.4 H, MCH 33.4 H, MCHC 32.7, RDW 13.6, Plt Count 215, MPV 8.0, Neut % (Auto) 28.4 L, Lymph % (Auto) 32.6, [place] % (Auto) 12.8 H, Eos % (Auto) 25.4 H, Baso % (Auto) 0.8, Neut # (Auto) 1.8, Lymph # (Auto) 2.1, [place] # (Auto) 0.8, Eos # (Auto) 1.6 H, Baso # (Auto) 0.1 04/18/19 07:17: Sodium 138, Potassium 3.5, Chloride 99, Carbon Dioxide 33 H, Anion Gap 9.5, BUN 51 H, Creatinine 2.26 H, Estimated Creat Clear 24, Estimated GFR 29 L, Est GFR ( Amer) 34 L, Glucose 220 H, Calcium 8.8, Total Bilirubin 0.7, Direct Bilirubin 0.2, Indirect Bilirubin 0.5, AST 23, ALT 19, Alkaline Phosphatase 236 H, Troponin I < 0.02, Total Protein 7.3, Albumin 3.4 04/18/19 09:00: Urine Color Yellow, Urine Appearance Clear, Urine pH 6.0, Ur Specific [place] 1.015, Urine Protein Negative, Urine Glucose (UA) Negative, Urine Ketones Negative, Urine Blood Trace-i, Urine Nitrate Negative, Urine Bilirubin Negative, Urine Urobilinogen 0.2, Ur Leukocyte Esterase Negative, Urine RBC 3-5, Urine WBC None, Ur Squamous Epith Cells Occasional, Urine Bacteria None I & O for Last 24 hours: Intake & Output 04/15/19 04/16/19 04/17/19 04/18/19 11:59 11:59 11:59 11:59 Weight 133 lb 1 oz - *Routine HEENT Exam Head: Present: normocephalic Eye: Present: EOMI, PERRL ENT: Present: mucous membranes moist - *Routine Neck Exam Present: supple. Absent: JVD, carotid bruit - *Routine Respiratory Exam Present: CTA bilaterally. Absent: accessory muscle use, rales, rhonchi, wheezes - *Routine Cardiovascular Exam Present: RRR. Absent: murmur, gallop, rubs - *Routine Abdominal Exam Present: soft. Absent: tenderness, distended, guarding - *Routine Extremities Exam Absent: edema, calf tenderness Comments: Left leg externally rotated - *Routine Neurological Exam Present: alert, oriented X3, moving all extremities Assessment and Plan (1) Hip fracture Current visit: Yes Status: Acute Qualifiers: Encounter type: initial encounter Fracture type: closed Laterality: left Qualified Code(s): S72.002A - Fracture of unspecified part of neck of left femur, initial encounter for closed fracture Category: Medical Code(s): S72.009A - Fracture of unspecified part of neck of unspecified femur, initial encounter for closed fracture (2) H/O aortic valve replacement with porcine valve Current visit: Yes Status: Acute Category: Surgical Code(s): Z95.3 - Presence of xenogenic heart valve (3) RBBB (right bundle branch block with left anterior fascicular block) Current visit: Yes Status: Acute Category: Medical Code(s): I45.2 - Bifascicular block (4) Renal insufficiency Current visit: Yes Status: Acute Category: Medical Code(s): N28.9 - Disorder of kidney and ureter, unspecified (5) Diabetes mellitus type 2, noninsulin dependent Current visit: Yes Status: Chronic Category: Medical Code(s): E11.9 - Type 2 diabetes mellitus without complications (6) CAD (coronary artery disease) Current visit: No Status: Chronic Qualifiers: Coronary Disease-Associated Artery/Lesion type: bypass graft [place] vs. transplanted heart: [place] heart Associated angina: without angina Qualified Code(s): I25.810 - Atherosclerosis of coronary artery bypass graft(s) without angina pectoris Category: Medical Code(s): I25.10 - Atherosclerotic heart disease of [place] coronary artery without angina pectoris (7) Hx of CABG Current visit: No Status: Chronic Category: Surgical Code(s): Z95.1 - Presence of aortocoronary bypass graft - Assessment and plan all Dx Assessment and Plan for all problems:: 1. Preliminary reading of echo shows normal LVEF with normal function of prosthetic AVR. Pt is at a low and acceptable risk from a Cardiology standpoint to proceed with hip surgery. 2. Recommend continuing aspirin, metoprolol and atorvastatin perioperatively as taking at home. 3. Recommend telemetry to monitor for high-grade arrhythmias in light of the patient's bifascicular block on EKG. 4. Cautious use of diuretics in light of the patient's chronic kidney disease (likely exacerbated recently with increased diuretic use).
--- NOTE | 2019-04-18 13:23 | Consult Report ---
*Admission Date: 04/18/19 *Reason for consult:: Intertrochanteric fracture neck of femur, left *History of present illness: 73-year-old white male with history of bypass and aortic valve replacement with trifecta bioprosthetic valve on 07/16/2018 presented to the emergency department with pain in the left hip after fall. Patient states he got out of bed to open the door and let his dog out this morning. In the process he states he felt dizzy and fell down injuring his left hip. He reports no other injuries. Patient noted left hip pain after fall and was unable to get up and walk; he was transported to the ER for evaluation. X-ray of the left hip showed mildly displaced intertrochanteric hip fracture. Patient admitted for further evaluation and management of the hip fracture. Patient denies any dizziness, headache, chest or neck pain. He denies loss of consciousness, chest pain and shortness of breath. He lives with his and usually walks unaided. He reports no previous problems or hip pain. His only complaint is left hip pain her pain which is somewhat controlled with medication but aggravated with any attempted movements of the limb. Reviewed past medical history, home medication, immunization, social history, family history, lab results and ALLERGIES. Review of Systems - Review of Systems Review of systems:: pertinent systems reviewed and negative unless documented below - Constitutional Denies anorexia, Denies excessive sweating, Denies headache(s), Denies malaise - Eyes Reports blurry vision - ENT Denies abnormal hearing, Denies nosebleed - *Cardiovascular Reports shortness of breath with activity, Denies chest pain, Denies chest pain with activity - *Respiratory Denies chest congestion, Denies cough - *Gastrointestinal Denies abdominal pain, Denies change in bowel habits, Denies nausea - *Genitourinary Denies blood in urine - *Musculoskeletal Reports joint pain, Reports back pain, Reports deformity - *Neurologic Denies frequent falls, Denies seizure-like activity [facility] History I have reviewed the patient's past medical history: Yes Medical History: Reports:: Cancer (non hodgkins lymphoma 2005), Chronic Obstructive Pulmonary Disease (COPD), Coronary Artery Disease, Diabetes Mellitus Type 2, Heart Murmur, Hyperlipidemia, Hypertension, Kidney Stones, Valvular Heart Disease Denies:: Diabetes Mellitus Type 1, MRSA *Have you ever received a pneumonia vaccine?: Yes *Have you received a flu vaccine this season?: Yes Other Medical History: Reports: Arthritis, Cataracts (removed from left eye), Hoarseness Other Surgeries: Yes: CABG, Cancer Surgery (biopsy), Cardiac Surgery, Cholecystectomy, Other Amputation: No Fractures: No - *Social History Educational Level: Completed GED/General Educational Development Smoking Status: Former smoker Tobacco Type: pipe, cigars Alcohol Intake: never Substance Use Type: denies use *Occupational Status:: retired Housing: house Household Members: spouse *Travel in the last 8 weeks: None Family Hx:: Heart Attack, Coronary Artery Disease Meds Home Medications Medication Instructions Recorded Confirmed Type furosemide 40 mg tablet 40 - 80 mg PO DAILY PRN 03/19/18 04/18/19 History gabapentin 300 mg capsule 300 mg PO BID 03/19/18 04/18/19 History oxycodone 15 mg tablet 15 mg PO Q6HP 03/19/18 04/18/19 History aspirin 81 mg tablet,delayed 81 mg PO DAILY 09/04/18 04/18/19 History release metoprolol tartrate 25 mg tablet 12.5 mg PO BID tab 09/04/18 04/18/19 History Atorvastatin Calcium [Atorvastatin 40 mg PO HS 04/18/19 04/18/19 History 40mg Tab] Allergies Allergy/AdvReac Type Severity Reaction Status Date / Time No Known Allergies Allergy Verified 09/04/18 10:50 Exam Vital signs and Labs for Last 24 Hours: Temp Pulse Resp BP Pulse Ox 98.1 F 80 18 113/54 L 93 L 04/18/19 10:00 04/18/19 10:00 04/18/19 10:00 04/18/19 10:00 04/18/19 10:00 Laboratory Results - last 24 hr 04/18/19 07:17: WBC 6.4, RBC 3.44 L, Hgb 11.5 L, Hct 35.2 L, MCV 102.4 H, MCH 33.4 H, MCHC 32.7, RDW 13.6, Plt Count 215, MPV 8.0, Neut % (Auto) 28.4 L, Lymph % (Auto) 32.6, [place] % (Auto) 12.8 H, Eos % (Auto) 25.4 H, Baso % (Auto) 0.8, Neut # (Auto) 1.8, Lymph # (Auto) 2.1, [place] # (Auto) 0.8, Eos # (Auto) 1.6 H, Baso # (Auto) 0.1 04/18/19 07:17: Sodium 138, Potassium 3.5, Chloride 99, Carbon Dioxide 33 H, Anion Gap 9.5, BUN 51 H, Creatinine 2.26 H, Estimated Creat Clear 24, Estimated GFR 29 L, Est GFR ( Amer) 34 L, Glucose 220 H, Calcium 8.8, Total Bilirubin 0.7, Direct Bilirubin 0.2, Indirect Bilirubin 0.5, AST 23, ALT 19, Alkaline Phosphatase 236 H, Troponin I < 0.02, Total Protein 7.3, Albumin 3.4 04/18/19 09:00: Urine Color Yellow, Urine Appearance Clear, Urine pH 6.0, Ur Specific [place] 1.015, Urine Protein Negative, Urine Glucose (UA) Negative, Urine Ketones Negative, Urine Blood Trace-i, Urine Nitrate Negative, Urine Bilirubin Negative, Urine Urobilinogen 0.2, Ur Leukocyte Esterase Negative, Urine RBC 3-5, Urine WBC None, Ur Squamous Epith Cells Occasional, Urine Bacteria None 04/18/19 11:53: POC Glucose 198 H I & O for Last 24 hours: Intake & Output 04/16/19 04/17/19 04/18/19 04/19/19 11:59 11:59 11:59 11:59 Intake Total 0 / 0 Balance 0 / 0 Weight 133 lb 1 oz - Constitutional no acute distress, average body habitus, cooperative - *Routine HEENT Exam Head: Present: normocephalic, atraumatic Eye: Present: EOMI ENT: Present: mucous membranes moist - *Routine Neck Exam Present: supple, full ROM, trachea midline. Absent: lymphadenopathy - *Routine Respiratory Exam Present: CTA bilaterally. Absent: respiratory distress - *Routine Cardiovascular Exam Present: RRR, Normal S1, Normal S2 - *Routine Abdominal Exam Present: soft, normoactive bowel sounds. Absent: organomegaly - *Routine Extremities Exam Comments: On examination of his lower extremities, there is shortening of the LEFT leg and the foot is externally rotated. On examination of the LEFT hip the skin is normal. No rashes or lesions noted. He is tender over the LEFT hip. Any attempted movements of the LEFT hip are painful. Thigh and calf are soft and nontender. Dorsalis pedis and posterior tibial pulses are palpable 1+ bilaterally. Sensation is grossly intact. He has good range of foot, ankle and toe movements. Diagnostic imaging: X-rays of the pelvis AP view, LEFT hip AP and lateral views are reviewed along with radiologist report. These are showing a displaced, unstable intertrochanteric fracture of the LEFT proximal femur. Hip joint is showing early degenerative changes. Vascular calcification is noted on the x- rays. - Routine Back/Spine/Pelvis Exam Back/Spine: Absent: CVA tenderness, paraspinal tenderness, vertebral tenderness - *Routine Skin Exam Present: intact, warm, normal turgor - *Routine Neurological Exam Present: alert, oriented X3, CN II-XII intact - Routine Psychiatric Exam Present: normal affect, cooperative Results - Labs Result Diagrams: 04/18/19 07:17 04/18/19 07:17 Labs: Abnormal lab results 04/18/19 04/18/19 04/18/19 Range/Units 07:17 07:17 11:53 RBC 3.44 L (4.60-6.20) M/mm3 Hgb 11.5 L (14.1-18.0) g/dL Hct 35.2 L (42.0-52.0) % MCV 102.4 H (80-94) fl MCH 33.4 H (27.0-31.2) pg Neut % (Auto) 28.4 L (37.0-80.0) % [place] % (Auto) 12.8 H (1.7-9.3) % Eos % (Auto) 25.4 H (0.1-12.0) % Eos # (Auto) 1.6 H (0.0-0.4) K/mm3 Carbon Dioxide 33 H (21.0-32.0) mmol/L BUN 51 H (7-18) mg/dL Creatinine 2.26 H (0.70-1.30) mg/dL Estimated GFR 29 L (>60) ml/min Est GFR ( Amer) 34 L (>60) ML/MIN Glucose 220 H (74-106) mg/dL POC Glucose 198 H (70-110) Alkaline Phosphatase 236 H (46-116) U/L H & H 04/18/19 Range/Units 07:17 Hgb 11.5 L (14.1-18.0) g/dL Hct 35.2 L (42.0-52.0) % All other labs normal. Assessment and Plan (1) Hip fracture Current visit: Yes Status: Acute Qualifiers: Encounter type: initial encounter Fracture type: closed Laterality: left Qualified Code(s): S72.002A - Fracture of unspecified part of neck of left femur, initial encounter for closed fracture Category: Medical Code(s): S72.009A - Fracture of unspecified part of neck of unspecified femur, initial encounter for closed fracture (2) H/O aortic valve replacement with porcine valve Current visit: Yes Status: Acute Category: Surgical Code(s): Z95.3 - Presence of xenogenic heart valve (3) RBBB (right bundle branch block with left anterior fascicular block) Current visit: Yes Status: Acute Category: Medical Code(s): I45.2 - Bifascicular block (4) Renal insufficiency Current visit: Yes Status: Acute Category: Medical Code(s): N28.9 - Disorder of kidney and ureter, unspecified (5) Diabetes mellitus type 2, noninsulin dependent Current visit: Yes Status: Chronic Category: Medical Code(s): E11.9 - Type 2 diabetes mellitus without complications (6) CAD (coronary artery disease) Current visit: No Status: Chronic Qualifiers: Coronary Disease-Associated Artery/Lesion type: bypass graft [place] vs. transplanted heart: [place] heart Associated angina: without angina Qualified Code(s): I25.810 - Atherosclerosis of coronary artery bypass graft(s) without angina pectoris Category: Medical Code(s): I25.10 - Atherosclerotic heart disease of [place] coronary artery without angina pectoris (7) Hx of CABG Current visit: No Status: Chronic Category: Surgical Code(s): Z95.1 - Presence of aortocoronary bypass graft - Assessment and plan all Dx Assessment and Plan for all problems:: I have reviewed the clinical and x-ray findings with the patient and his who is at the bedside. I have discussed the diagnosis, natural history and management options in detail including both nonsurgical and surgical. Even though the x-rays show early degenerative changes in his left hip joint, he did not have any pain or problems with the hip prior to the fall. I have recommended surgical remediation in the form of a cephalo-medullary nailing left femur. I have explained the procedure, risks and benefits, alternatives and the expected postoperative course. I explained to the patient and his about the fracture and the proposed surgical procedure utilizing paper copies of x-rays and drawings. The complications discussed include but are not limited to infection, bleeding, injury to nerves and blood vessels, DVT, PE, screw cut-out/implant failure, loss of fixation, nonunion, malunion/malrotation, osteonecrosis of the femoral head, femoral shaft fracture, painful hardware, heterotopic ossification, stiffness, weakness, incomplete relief of pain, incomplete return of function or motion and the likely need for further surgery in future, and anesthetic/medical complications including heart attack, stroke, transfusion reactions or . We discussed how any of these events can be devastating. I've explained that the patient is at a significant surgical risk due to his age, cardiac and other medical comorbidities, and fragility of the bone. Family and patient seemed to understand and accept these risks. We have discussed nonsurgical alternatives as well but not recommended. The nonoperative management would essentially consist of prolonged bed rest and traction (skeletal/skin) in bed and pain medication and has exceptionally poor outcome. This could result in nonunion and malunion of the fracture and almost certainly, the patient has a very high risk of decubitus ulcers, UTI, respiratory tract infections, DVT/PE and other complications from being bedridden. I have explained to them that the standard of care for this sort of injuries is surgical throughout the country unless the patient is very ill for surgical management. We also discussed the postoperative course including the rehab and physical therapy required. All their questions were answered and they verbalized a good understanding. We are awaiting preoperative medical and cardiac clearances. Well also obtain a preoperative anesthetic evaluation. The limb was marked appropriately and initialed by me. I have recommended- Type and screen Continue nothing by mouth Continue IV fluids DVT prophylaxis as per protocol Analgesia as needed Consent patient for a cephalo-medullary nailing LEFT femur. Order 2 g of IV Ancef for preoperative prophylaxis to start half an hour before surgery I am planning to take him for surgery at the earliest opportunity once he is cleared for surgery. Continue medical management as per Dr. Guallpa. Thank you for the opportunity to take part in the care of this very pleasant patient.
--- NOTE | 2019-04-18 13:26 | Cardiology Report ---
APPROVED REPORT EXAM: Comprehensive 2D, Doppler, and color-flow Echocardiogram [employer]: Terrie Ibarra RDCS Ht: 5 ft 8 in Wt: 133lbs BSA: 1.72 BP: 110/60 mmHg Indications: Abnormal ECG, Prosthetic Valve, CAD, Hyperlipidemia, Hypertension/HDD, Pre-Op,BOVINE AVR 2D Dimensions LVOT 1.75 cm (M/F) 1.5-2.5 M-Mode Dimensions RVDd 2.25 cm (0.9-2.6)LVDd 4.01 cm (3.5-5.7) LVDs 2.93 cm (3.5-5.7)IVSd 1.18 cm (0.6-1.1) PWd 0.89 cm (0.6-1.1)EF (Teich) 53.10% FS 26.90% EDV (Teich) 70.40 mL ESV (Teich) 33.00 mL LV Diastology E/A Ratio 2.43 Aortic Valve LVOT Max 109.00 (70-110 cm/s)LVOT VTI 22.65 cm Mitral Valve MV A Velocity 47.00 (40-130 cm/s) Left Ventricle Left atrium is mildly enlarged, left ventricle is normal size, mild concentric left ventricular hypertrophy, visually estimated ejection fraction 55% with no regional wall motion abnormality, diastolic parameters are inconclusive. Right Ventricle Right atrium and right ventricular normal size and contractility. Aortic Valve There is a bioprosthetic valve noted in the aortic position, the valve is well-seated. The aortic outflow velocities within normal range, there is no aortic insufficiency. Mitral Valve Mitral valve leaflets are minimally thickened, there is no mitral stenosis, there is mild mitral regurgitation. Tricuspid Valve Tricuspid valve is grossly normal, there is mild tricuspid regurgitation, tricuspid regurgitation jet velocity is inadequate for calculation of the right ventricular systolic pressure. Pulmonic Valve Pulmonic valve is poorly visualized. Great Vessels Aortic root is normal size. Pericardium No significant pericardial effusion noted. Conclusion 1. Mildly enlarged left atrium, normal left ventricular size, visually estimated ejection fraction 55% with no regional wall motion abnormality, diastolic parameters are inconclusive. 2. Normal functioning bioprosthetic valve in the aortic position. 3. Mild mitral and tricuspid regurgitation. 4. No significant pericardial effusion noted. Electronically signed by : Charlie Haynes, 04/18/2019 13:26:13
--- NOTE | 2019-04-18 13:54 | History & Physical Report ---
*Admission Date: 04/18/19 *Chief complaint: fall, left hip fracture *History of present illness: Mr. Burger is a 73-year-old white male with history of bypass and aortic valve replacement with trifecta bioprosthetic valve 07/16/2018 who presented to the ER after falling at home. He states he got up out of bed and walked to the door to let his dog out and fell after becoming dizzy. He denied any chest pain, pressure or tightness. Does not think he lost consciousness. Denies any head trauma. Patient noted left hip pain after fall and was transported to the ER for evaluation. X-ray of the left hip showed mildly displaced intertrochanteric hip fracture. Patient admitted to medicine for further evaluation and treatment. Cardiology consulted for preop evaluation. Patient does admit to using Lasix recently due to lower extremity edema and shortness of breath. Patient has chronic kidney disease with baseline creatinine greater than 2, history of coronary artery disease, no CHF, no insulin-dependent diabetes. Hip fracture repair is an intermediate risk procedure. [facility] History I have reviewed the patient's past medical history: Yes Medical History: Reports:: Cancer (non hodgkins lymphoma 2005), Chronic Obstructive Pulmonary Disease (COPD), Coronary Artery Disease, Diabetes Mellitus Type 2, Heart Murmur, Hyperlipidemia, Hypertension, Kidney Stones, Valvular Heart Disease Denies:: Diabetes Mellitus Type 1, MRSA *Have you ever received a pneumonia vaccine?: Yes *Have you received a flu vaccine this season?: Yes Other Medical History: Reports: Arthritis, Cataracts (removed from left eye), Hoarseness Other Surgeries: Yes: CABG, Cancer Surgery (biopsy), Cardiac Surgery, Cholecystectomy, Other Amputation: No Fractures: No - *Social History Educational Level: Completed GED/General Educational Development Smoking Status: Former smoker Tobacco Type: pipe, cigars Alcohol Intake: never Substance Use Type: denies use *Occupational Status:: retired Housing: house Household Members: spouse *Travel in the last 8 weeks: None Family Hx:: Heart Attack, Coronary Artery Disease Review of Systems - Review of Systems Review of systems:: pertinent systems reviewed and negative unless documented below - *Neurologic Denies frequent falls, Denies seizure-like activity Meds Home Medications Medication Instructions Recorded Confirmed Type furosemide 40 mg tablet 40 - 80 mg PO DAILY PRN 03/19/18 04/18/19 History gabapentin 300 mg capsule 300 mg PO BID 10/15/18 11/14/19 History oxycodone 15 mg tablet 15 mg PO Q6HP 03/19/18 04/18/19 History aspirin 81 mg tablet,delayed 81 mg PO DAILY 09/04/18 04/18/19 History release metoprolol tartrate 25 mg tablet 12.5 mg PO BID tab 09/04/18 04/18/19 History Albuterol Sulfate [Albuterol HFA 2 puffs INHALATION Q4-6H PRN 04/18/19 04/18/19 History Inhaler] Atorvastatin Calcium [Atorvastatin 40 mg PO HS 04/18/19 04/18/19 History 40mg Tab] Allergies Allergy/AdvReac Type Severity Reaction Status Date / Time No Known Allergies Allergy Verified 09/04/18 10:50 Exam Vital signs and Labs for Last 24 Hours: Temp Pulse Resp BP Pulse Ox 98.1 F 80 18 113/54 L 93 L 04/18/19 10:00 04/18/19 10:00 04/18/19 10:00 04/18/19 10:00 04/18/19 10:00 Laboratory Results - last 24 hr 04/18/19 07:17: WBC 6.4, RBC 3.44 L, Hgb 11.5 L, Hct 35.2 L, MCV 102.4 H, MCH 33.4 H, MCHC 32.7, RDW 13.6, Plt Count 215, MPV 8.0, Neut % (Auto) 28.4 L, Lymph % (Auto) 32.6, [place] % (Auto) 12.8 H, Eos % (Auto) 25.4 H, Baso % (Auto) 0.8, Neut # (Auto) 1.8, Lymph # (Auto) 2.1, [place] # (Auto) 0.8, Eos # (Auto) 1.6 H, Baso # (Auto) 0.1 04/18/19 07:17: Sodium 138, Potassium 3.5, Chloride 99, Carbon Dioxide 33 H, Anion Gap 9.5, BUN 51 H, Creatinine 2.26 H, Estimated Creat Clear 24, Estimated GFR 29 L, Est GFR ( Amer) 34 L, Glucose 220 H, Calcium 8.8, Total Bilirubin 0.7, Direct Bilirubin 0.2, Indirect Bilirubin 0.5, AST 23, ALT 19, Alkaline Phosphatase 236 H, Troponin I < 0.02, Total Protein 7.3, Albumin 3.4 04/18/19 09:00: Urine Color Yellow, Urine Appearance Clear, Urine pH 6.0, Ur Specific [place] 1.015, Urine Protein Negative, Urine Glucose (UA) Negative, Urine Ketones Negative, Urine Blood Trace-i, Urine Nitrate Negative, Urine Bilirubin Negative, Urine Urobilinogen 0.2, Ur Leukocyte Esterase Negative, Urine RBC 3-5, Urine WBC None, Ur Squamous Epith Cells Occasional, Urine Bacteria None 04/18/19 11:53: POC Glucose 198 H 04/18/19 12:28: Blood Type O Positive, Antibody Screen Negative I & O for Last 24 hours: Intake & Output 04/15/19 04/16/19 04/17/19 04/18/19 23:59 23:59 23:59 23:59 Intake Total 0 / 0 Balance 0 / 0 Weight 60.356 kg - Constitutional mild distress, thin - *Routine HEENT Exam Head: Present: normocephalic Eye: Present: EOMI, PERRL ENT: Present: mucous membranes moist - *Routine Neck Exam Present: supple. Absent: lymphadenopathy - *Routine Respiratory Exam Present: CTA bilaterally - *Routine Cardiovascular Exam Present: RRR - *Routine Abdominal Exam Present: soft, normoactive bowel sounds. Absent: tenderness - *Routine Extremities Exam Absent: cyanosis, clubbing, edema Comments: left leg shorter than right and externally rotated at the hip. TTP superficial to left hip. - *Routine Skin Exam Present: warm. Absent: rash - *Routine Neurological Exam Present: alert, oriented X3 Assessment and Plan (1) Hip fracture Current visit: Yes Status: Acute Qualifiers: Encounter type: initial encounter Fracture type: closed Laterality: left Qualified Code(s): S72.002A - Fracture of unspecified part of neck of left fem ur, initial encounter for closed fracture Category: Medical Code(s): S72.009A - Fracture of unspecified part of neck of unspecified femur, initial encounter for closed fracture (2) H/O aortic valve replacement with porcine valve Current visit: Yes Status: Acute Category: Surgical Code(s): Z95.3 - Presence of xenogenic heart valve (3) RBBB (right bundle branch block with left anterior fascicular block) Current visit: Yes Status: Acute Category: Medical Code(s): I45.2 - Bifascicular block (4) Renal insufficiency Current visit: Yes Status: Acute Category: Medical Code(s): N28.9 - Disorder of kidney and ureter, unspecified (5) Diabetes mellitus type 2, noninsulin dependent Current visit: Yes Status: Chronic Category: Medical Code(s): E11.9 - Type 2 diabetes mellitus without complications (6) CAD (coronary artery disease) Current visit: No Status: Chronic Qualifiers: Coronary Disease-Associated Artery/Lesion type: bypass graft [place] vs. transplanted heart: [place] heart Associated angina: without angina Qualified Code(s): I25.810 - Atherosclerosis of coronary artery bypass graft(s) without angina pectoris Category: Medical Code(s): I25.10 - Atherosclerotic heart disease of [place] coronary artery without angina pectoris (7) Hx of CABG Current visit: No Status: Chronic Category: Surgical Code(s): Z95.1 - Presence of aortocoronary bypass graft - Assessment and plan all Dx Assessment and Plan for all problems:: Mr. Burger is a 73-year-old male with multiple comorbidities. Admitted for left intertrochanteric fracture. Cardiology assessing patient for optimization/clearance. Orthopedics consulted for surgical fixation. Risk strat ification as follows: States he gets winded with exertion but denies artem chest pain. He is unable to go up 2 flights of stairs without getting short of breath and having to stop after several steps. RCRI of 2 (Cr>2, CAD), METs <4, elevated risk for intermediate risk procedure. S/p Echo, normal EF. Benefits outweigh risk for procedure, continue BB. Pt optimized for procedure. Planning for procedure this afternoon. Will resume home medications including beta-ellyn and make sure he gets a dose before going to surgery. Assess kidney function in the morning as well as hemoglobin to assess for any postop transfusion needs. Physical therapy to see the patient tomorrow. Anticipate probable discharge to short-term nursing facility for rehab prior to getting back home. Will address pain control and DVT prophylaxis after surgery.
--- NOTE | 2019-04-18 14:46 | Pharmacy Consult Notes ---
[facility] Pharmacy VTE Monitoring - Patient Demographics Admission date: 04/18/19 Report Date: 04/18/19 Time: 14:45 Allergies/Adverse Reactions: Patient Allergies No Known Allergies Allergy (Verified 09/04/18 10:50) Height: 1.73 m Weight: 60.356 kg Patient Problems: Current Active Problems Hip fracture (Acute) Renal insufficiency (Acute) RBBB (right bundle branch block with left anterior fascicular block) (Acute) H/O aortic valve replacement with porcine valve (Acute) Diabetes mellitus type 2, noninsulin dependent (Chronic) - VTE Risk Labs: VTE Related Lab Results Hgb 11.5 g/dL (14.1-18.0) L 04/18/19 07:17 Hct 35.2 % (42.0-52.0) L 04/18/19 07:17 Plt Count 215 K/mm3 (142-424) 04/18/19 07:17 BUN 51 mg/dL (7-18) H 04/18/19 07:17 Creatinine 2.26 mg/dL (0.70-1.30) H 04/18/19 07:17 Estimated Creat Clear 24 mL/min (50-200) 04/18/19 07:17 Was VTE Risk Assessment Performed: Yes VTE Score: 9 VTE Risk Level: Moderate Risk Clinical Trial Participant: No - Prophylaxis VTE Prophylaxis Ordered?: Yes Types of VTE Prophylaxis: IPCS Knee High (post op)
--- NOTE | 2019-04-18 16:44 | Progress Note ---
[facility] Anesthesia Checklist - Patient Identification Patient Identification: Arm Band, Verbal (Name & ) - Structural Data Admitted From: Inpatient Planned Operative Procedure/s: gamma nail Consent for Planned Operative Procedure(s) Verified: Yes Verified Documents: History and Physical - NPO Status Verified Time NPO: 00:00 - Additional verifications Patient : No Anesthesia Reactions: No Hx Blood Transfusions: No Blood Transfusion Reaction: No Cephalosporin Allergy: No Previous Colonoscopy: No - Cardiovascular Assessment Heart Sounds: S1 & S2 Pulse Strength: Baseline Pulse Rhythm: Regular Peripheral Edema: No - Airway Assessment C-Spine Mobility Assessed: Yes TMJ Mobility Assessed: Yes Dentition: Edentulous - Neurological Assessment Level of Consciousness: Awake, Alert, Appropriate Hx Seizures: No Numbness or tingling in extremities: No - Anesthesia Plan Anesthesia Risk discussed: Yes Anesthesia Plan: Verified ASA Class: III Anesthesia Type: Spinal [facility] History I have reviewed the patient's past medical history: Yes Medical History: Reports:: Cancer (non hodgkins lymphoma 2005), Chronic Obstructive Pulmonary Disease (COPD), Coronary Artery Disease, Diabetes Mellitus Type 2, Heart Murmur, Hyperlipidemia, Hypertension, Kidney Stones, Valvular Heart Disease Denies:: Diabetes Mellitus Type 1, MRSA *Have you ever received a pneumonia vaccine?: Yes *Have you received a flu vaccine this season?: Yes Other Medical History: Reports: Arthritis, Cataracts (removed from left eye), Hoarseness Anesthesia experience/problems:: none Other Surgeries: Yes: CABG, Cancer Surgery (biopsy), Cardiac Surgery, Cholecystectomy, Other Amputation: No Fractures: No - *Social History Educational Level: Completed GED/General Educational Development Smoking Status: Former smoker Tobacco Type: pipe, cigars Alcohol Intake: never Substance Use Type: denies use *Occupational Status:: retired Housing: house Household Members: spouse *Travel in the last 8 weeks: None Family Hx:: Heart Attack, Coronary Artery Disease
--- NOTE | 2019-04-18 19:31 | Progress Note ---
[facility] Anesthesia Record Part I Intake, IV Amount: 900 Estimated blood loss (mL): 200 Urine output (mL): 200 Blood Pressure: 109/53 SaO2: 100 Pulse Rate: 83 Respiratory Rate: 20 Temperature: 98.6 F Patient is:: Drowsy, Mask O2, Stable Stable to PACU at:: 19:26
--- NOTE | 2019-04-18 19:32 | Progress Note ---
[facility] Anesthesia Record Part II Discharge Time: 19:56 Destination: Medical Surgical Department PACU nurse assessment reviewed?: Yes Patient Condition:: Good Anesthesia Complications:: None Swallowing reflex intact?: Yes Cyanosis?: No
--- NOTE | 2019-04-18 19:50 | Operative Note ---
Date of procedure: 04/18/19 Pre-op Diagnosis:: Closed, displaced intertrochanteric fracture, left femur Post-op Diagnosis:: Same Procedure performed:: Cephalo-medullary nailing, left femur Surgeon:: Devon Ellis MD Trade Promotion Analyst(s):: Jodie Sotomayor SPRAY GUN OPERATOR:: Jesus Vera Anesthesia: spinal Estimated blood loss (mL): 200 Clinical Note:: Patient is a 73-year-old male who felt dizzy and fell at home sustaining an injury to his left hip on 04/18/2019. Following evaluation in the emergency room where x-ray showed a displaced and unstable intertrochanteric fracture of his left proximal femur, he was admitted for further management. After evaluating the patient, I have discussed the diagnosis and management options in detail i ncluding nonsurgical and surgical, with the patient and his . Prior to the injury patient was active and mobile independently. He lives with family. After a detailed discussion with the patient/family a decision was made to fix the fracture internally with a cephalo-medullary nail. I have discussed the procedure, risks and benefits, postoperative recovery and rehabilitation and the expected outcomes. The complications discussed include but are not limited to DVT, PE, infection, bleeding, injury to nerves and blood vessels, screw cut- out/implant failure, loss of fixation, nonunion, malunion/malrotation, osteonecrosis of the femoral head, femoral shaft fracture, painful hardware, heterotopic ossification, stiffness, weakness, incomplete relief of pain, incomplete return of function or motion and the likely need for further surgery in future, and anesthetic/medical complications including heart attack, stroke, transfusion reaction or . The patient/family wished to proceed with the surgical remediation. Consent form was reviewed and signed by me. The limb was appropriately marked and initialed by me. Following appropriate preoperative workup, medical and cardiac clearance, patient is brought to the operating room for surgery. The surgery is indicated to reduce and stabilize the fracture, relieve pain and improve function. Patient understood the risks, agreed to proceed with surgery, signed the consent form and no guarantees or assurances were given or implied. Operative findings:: Displaced and unstable intertrochanteric fracture left proximal femur as noted on the preoperative x-rays. The fracture is well reduced with closed manipulation prior to fixation. Bone quality is good. Operative note:: Following appropriate preoperative workup and medical/cardiac clearance, patient is brought to the operating room and a spinal anesthesia was administered. Patient was then positioned supine on the fracture table and all the bony prominences were appropriately padded. The left foot was secured in the footplate and the footplate was attached to the fracture table. The right leg was placed out of the way in a leg miller. Under fluoroscopic guidance the fracture was reduced by traction and satisfactory reduction was obtained. The reduction was confirmed on both AP and lateral views. The left hip and thigh were then prepped and draped in the usual sterile fashion. Administration of prophylactic antibiotics was confirmed with the anesthetic team (2 g of IV Ancef was administered). A preprocedure timeout was performed as per the hospital protocol. After marking the level of the greater trochanter on the skin under fluoroscopy, a skin incision was made proximal to the greater trochanter in line with the femoral shaft. The dissection was then carried through the subcutaneous tissue. The tensor fascia muscle was split in line with the fibers. This provided access to the tip of the greater trochanter. Under fluoroscopic guidance a guidewire was placed at the tip of the greater trochanter, the position was confirmed on both fluoroscopic views and advanced into the proximal femur. The proximal segment was then reamed over the guidewire and the guidewire was exchanged for a ball-tipped guidewire which was advanced into the distal femur. The position of the guidewire was confirmed in both AP and lateral views. Then sequential reaming was performed over the guidewire up to 12.5 mm reamer. The required nail length was measured. A 130 degree angle, 11 mm diameter, long 400 left [place] Gamma 3 nail was selected. The selected nail was attached to the proximal jig and the nail was then inserted into the femur under fluoroscopic guidance. After seating the nail to the appropriate level, I proceeded to introduce the lag screw. We used the [employer] computer navigation system for placement of the lag screw. The lag screw sheath assembly was placed through the appropriate hole in the jig and locked in place. Then a 1 inch skin incision was made over the lateral thigh at this level. The incision was deepened through soft tissue and the fascia talha and the muscle was split. The trocar was removed and a guide pin was placed into the femoral head under fluoroscopic control. After confirming satisfactory placement of the guidepin in both AP and lateral fluoroscopic views the length was measured. A 105 mm lag screw was then selected. Drilling was performed over the guidewire for the lag screw. The lag screw was then introduced over the guidewire and advanced to an appropriate level. The traction was reduced and fracture site compressed. The lag screw was secured in place with the set screw. The guide pin and sheath were then removed. After final seating of the lag screw the tip apex distance was 15 mm. I then proceeded to perform the distal locking through the dynamic hole- we used the [employer] Gamma nail distal locking jig for this. After appropriately lining the drill sleeve and nail under fluoroscopic guidance, the drill sleeve was placed through the dynamic hole and a 1 cm skin incision was made. Through the drill sleeve the 4.3 mm drill was introduced and the drill hole made for the distal locking screw. The screw length was measured and a 5 mm x 50 mm cortical bone screw was introduced through the dynamic locking hole. The distal and proximal jigs were then removed and fluoroscopic screening was performed in both the AP and lateral views. The reduction and fixation were noted to be satisfactory and stable. Fluoroscopic images were obtained and stored digitally. The wounds were washed out with normal saline and hemostasis was obtained with the diathermy cautery. The wounds were then closed in layers with the 0 Vicryl, 2-0 Vicryl and 4-0 Monocryl subcuticular sutures, Dermabond and Steri-Strips/to the skin. 30 mL of 0.5 percent Marcaine with epinephrine was injected into the skin and subcutaneous tissue around the incisions for postoperative pain relief. Sterile dressings were applied. The foot was taken out of the foot miller and the opposite leg out of the leg miller and placed on the table extension. The limb lengths were noted to be equal and there was no rotational malalignment. Dorsalis pedis and posterior tibial pulses were 1+ on both sides. At the end of the procedure, swab, needle and instrument counts were correct according to the scrub team. Patient was then transferred onto the bed. Patient was then transported to the PACU in a stable condition. Patient tolerated the procedure well and there were no immediate complications. Postoperatively patient will receive 3 further doses of prophylactic antibiotics, DVT prophylaxis as per protocol and IV and oral analgesia as needed. Medical management as per Dr. Guallpa's team. Patient can be mobilized on the first postoperative day with a walker, weight bearing on the left side as tolerated. [place] Gamma 3 long nailing system-130 degree angle, 11 mm diameter, long (400 mm) left [place] Gamma 3 nail, 10.5 mm x 105 mm lag screw and 5 mm x 50 mm distal locking screw. (Industry client account representative: Francisco Montgomery from [facility]) Condition: stable Disposition: PACU Specimens:: None Complications:: None
[2019-04-19 06:12] LABS: Basophils % 0.3 % (0.1-2.0); Eosinophils # 0.3 K/mm3 (0.0-0.4); Lymphocytes # 1.2 K/mm3 (0.7-4.5); Lymphocytes % 17.2 % (10-50); Mean Corpuscular HGB Conc 31.4 g/dL (31.8-35.4); Mean Corpuscular Volume 102.5 fl (80-94); Monocytes % 14.9 % (1.7-9.3); Neutrophils # 4.3 K/mm3 (1.8-7.8); Neutrophils % 63.6 % (37.0-80.0); Platelet Count 189 K/mm3 (142-424); Red Blood Count 2.93 M/mm3 (4.60-6.20); Red Cell Distribution Width 13.6 % (11.5-17.5); White Blood Count 6.8 K/mm3 (4.8-10.8)
[2019-04-19 06:34] LABS: Hemoglobin 9.4 g/dL (14.1-18.0)
--- NOTE | 2019-04-19 06:38 | Progress Note ---
Internal Medicine - PN: Subj *Date: 04/19/19 *Time: 08:20 Interval history: Patient tolerated procedure well, however has had significant complaint of pain overnight. Been difficult to control. Vitals remained stable. Tolerating good p.o. intake this morning. Afebrile, denies shortness of breath, chest pain, nausea, vomiting. Pain somewhat improved this morning. Exam Vital signs and Labs for Last 24 Hours: Temp Pulse Resp BP Pulse Ox 98.6 F 77 18 100/69 L 94 L 04/19/19 04:00 04/19/19 04:00 04/19/19 04:00 04/19/19 04:00 04/19/19 04:00 Laboratory Results - last 24 hr 04/18/19 07:17: WBC 6.4, RBC 3.44 L, Hgb 11.5 L, Hct 35.2 L, MCV 102.4 H, MCH 33.4 H, MCHC 32.7, RDW 13.6, Plt Count 215, MPV 8.0, Neut % (Auto) 28.4 L, Lymph % (Auto) 32.6, [place] % (Auto) 12.8 H, Eos % (Auto) 25.4 H, Baso % (Auto) 0.8, Neut # (Auto) 1.8, Lymph # (Auto) 2.1, [place] # (Auto) 0.8, Eos # (Auto) 1.6 H, Baso # (Auto) 0.1 04/18/19 07:17: Sodium 138, Potassium 3.5, Chloride 99, Carbon Dioxide 33 H, Anion Gap 9.5, BUN 51 H, Creatinine 2.26 H, Estimated Creat Clear 24, Estimated GFR 29 L, Est GFR ( Amer) 34 L, Glucose 220 H, Calcium 8.8, Total Bilirubin 0.7, Direct Bilirubin 0.2, Indirect Bilirubin 0.5, AST 23, ALT 19, Alkaline Phosphatase 236 H, Troponin I < 0.02, Total Protein 7.3, Albumin 3.4 04/18/19 09:00: Urine Color Yellow, Urine Appearance Clear, Urine pH 6.0, Ur Specific [place] 1.015, Urine Protein Negative, Urine Glucose (UA) Negative, Urine Ketones Negative, Urine Blood Trace-i, Urine Nitrate Negative, Urine Bilirubin Negative, Urine Urobilinogen 0.2, Ur Leukocyte Esterase Negative, Urine RBC 3-5, Urine WBC None, Ur Squamous Epith Cells Occasional, Urine Bacteria None 04/18/19 11:53: POC Glucose 198 H 04/18/19 12:28: Blood Type O Positive, Antibody Screen Negative 04/18/19 19:46: POC Glucose 214 H 04/18/19 20:54: POC Glucose 239 H 04/19/19 06:01: WBC 6.8, RBC 2.93 L, Hgb 9.4 L D, Hct 30.0 L, MCV 102.5 H, MCH 32.1 H, MCHC 31.4 L, RDW 13.6, Plt Count 189, MPV 8.0, Neut % (Auto) 63.6, Lymph % (Auto) 17.2, [place] % (Auto) 14.9 H, Eos % (Auto) 4.0, Baso % (Auto) 0.3, Neut # (Auto) 4.3, Lymph # (Auto) 1.2, [place] # (Auto) 1.0, Eos # (Auto) 0.3, Baso # (Auto) 0.0 I & O for Last 24 hours: Intake & Output 04/16/19 04/17/19 04/18/19 04/19/19 23:59 23:59 23:59 23:59 Intake Total 1140 / 1140 977 / 977 Output Total 600 / 600 300 / 300 Balance 540 / 540 677 / 677 Weight 60.356 kg 60.98 kg Narrative: - Constitutional NAD, thin, in bedside chair - *Routine HEENT Exam Head: Present: normocephalic Eye: Present: EOMI, PERRL ENT: Present: mucous membranes moist - *Routine Neck Exam Present: supple. Absent: lymphadenopathy - *Routine Respiratory Exam Present: CTA bilaterally - *Routine Cardiovascular Exam Present: RRR - *Routine Abdominal Exam Present: soft, normoactive bowel sounds. Absent: tenderness - *Routine Extremities Exam Absent: cyanosis, clubbing, edema Comments: left leg is equal compared to right, Incision CDI, TTP superficial to left hip. - *Routine Skin Exam Present: warm. Absent: rash - *Routine Neurological Exam Present: alert, oriented X3 Assessment and Plan (1) Hip fracture Current visit: Yes Status: Acute Qualifiers: Encounter type: initial encounter Fracture type: closed Laterality: left Qualified Code(s): S72.002A - Fracture of unspecified part of neck of left femur, initial encounter for closed fracture Category: Medical Code(s): S72.009A - Fracture of unspecified part of neck of unspecified femur, initial encounter for closed fracture (2) H/O aortic valve replacement with porcine valve Current visit: Yes Status: Acute Category: Surgical Code(s): Z95.3 - Presence of xenogenic heart valve (3) RBBB (right bundle branch block with left anterior fascicular block) Current visit: Yes Status: Acute Category: Medical Code(s): I45.2 - Bifascicular block (4) Renal insufficiency Current visit: Yes Status: Acute Category: Medical Code(s): N28.9 - Disorder of kidney and ureter, unspecified (5) Diabetes mellitus type 2, noninsulin dependent Current visit: Yes Status: Chronic Category: Medical Code(s): E11.9 - Type 2 diabetes mellitus without complications (6) CAD (coronary artery disease) Current visit: No Status: Chronic Qualifiers: Coronary Disease-Associated Artery/Lesion type: bypass graft [place] vs. transplanted heart: [place] heart Associated angina: without angina Qualified Code(s): I25.810 - Atherosclerosis of coronary artery bypass graft(s) without angina pectoris Category: Medical Code(s): I25.10 - Atherosclerotic heart disease of [place] coronary artery without angina pectoris (7) Hx of CABG Current visit: No Status: Chronic Category: Surgical Code(s): Z95.1 - Presence of aortocoronary bypass graft - Assessment and plan all Dx Assessment and Plan for all problems:: 73-year-old gentleman status post fixation of left intertrochanteric fracture. Doing okay this morning however pain difficult to control. Suspect this is secondary to his chronic opiate use. Patient takes between 2 and 4 doses of 15 mg of oxycodone daily. Additionally takes gabapentin 300 mg for her neuropathy which is what he says he takes his oxycodone for. We will continue oxycodone today 4 times a day and increase gabapentin to 600 mg twice daily. If tolerates this well will increase to 600 3 times daily tomorrow. Additionally will continue morphine 5 mg 15 to 30 minutes before physical therapy to aid in pain induced by movement. Continue regular diet. Will initiate bowel regimen. Continue enoxaparin for DVT prophylaxis. Plan for discharge later this weekend after meeting qualifying stay and pending physical therapy recommendations. Anticipate continued DVT prophylaxis for total of 6 weeks after surgery. Resumed home medications. Full code.
[2019-04-19 06:39] LABS: Albumin Level 2.7 gm/dL (3.4-5.0); Albumin/Globulin Ratio 0.8 (1.1-1.8); Bilirubin,Total 1.2 mg/dL (0.2-1.0); Calcium 8.4 mg/dL (8.5-10.1); Globulin 3.3 gm/dl (1.3-3.2)
--- NOTE | 2019-04-19 07:13 | Progress Note ---
Subjective Date: 04/19/19 Time: 07:10 Principal diagnosis: Hip fracture s/p surgery Interval history: 73 yo WM transferring to chair with assistance. Pain related to hip/surgery. Denies any chest pain. Exam Vital signs and Labs for Last 24 Hours: Temp Pulse Resp BP Pulse Ox 98.6 F 77 18 100/69 L 94 L 04/19/19 04:00 04/19/19 04:00 04/19/19 04:00 04/19/19 04:00 04/19/19 04:00 Laboratory Results - last 24 hr 04/18/19 07:17: WBC 6.4, RBC 3.44 L, Hgb 11.5 L, Hct 35.2 L, MCV 102.4 H, MCH 33.4 H, MCHC 32.7, RDW 13.6, Plt Count 215, MPV 8.0, Neut % (Auto) 28.4 L, Lymph % (Auto) 32.6, [place] % (Auto) 12.8 H, Eos % (Auto) 25.4 H, Baso % (Auto) 0.8, Neut # (Auto) 1.8, Lymph # (Auto) 2.1, [place] # (Auto) 0.8, Eos # (Auto) 1.6 H, Baso # (Auto) 0.1 04/18/19 07:17: Sodium 138, Potassium 3.5, Chloride 99, Carbon Dioxide 33 H, Anion Gap 9.5, BUN 51 H, Creatinine 2.26 H, Estimated Creat Clear 24, Estimated GFR 29 L, Est GFR ( Amer) 34 L, Glucose 220 H, Calcium 8.8, Total Bili manzanares 0.7, Direct Bilirubin 0.2, Indirect Bilirubin 0.5, AST 23, ALT 19, Alkaline Phosphatase 236 H, Troponin I < 0.02, Total Protein 7.3, Albumin 3.4 04/18/19 09:00: Urine Color Yellow, Urine Appearance Clear, Urine pH 6.0, Ur Specific [place] 1.015, Urine Protein Negative, Urine Glucose (UA) Negative, Urine Ketones Negative, Urine Blood Trace-i, Urine Nitrate Negative, Urine Bilirubin Negative, Urine Urobilinogen 0.2, Ur Leukocyte Esterase Negative, Urine RBC 3-5, Urine WBC None, Ur Squamous Epith Cells Occasional, Urine Bacteria None 04/18/19 11:53: POC Glucose 198 H 04/18/19 12:28: Blood Type O Positive, Antibody Screen Negative 04/18/19 19:46: POC Glucose 214 H 04/18/19 20:54: POC Glucose 239 H 04/19/19 06:01: WBC 6.8, RBC 2.93 L, Hgb 9.4 L D, Hct 30.0 L, MCV 102.5 H, MCH 32.1 H, MCHC 31.4 L, RDW 13.6, Plt Count 189, MPV 8.0, Neut % (Auto) 63.6, Lymph % (Auto) 17.2, [place] % (Auto) 14.9 H, Eos % (Auto) 4.0, Baso % (Auto) 0.3, Neut # (Auto) 4.3, Lymph # (Auto) 1.2, [place] # (Auto) 1.0, Eos # (Auto) 0.3, Baso # (Auto) 0.0 04/19/19 06:01: Sodium 140, Potassium 4.0, Chloride 103, Carbon Dioxide 32, Anion Gap 9.0, BUN 33 H D, Creatinine 1.82 H, Estimated Creat Clear 31, Estimated GFR 37 L, Est GFR ( Amer) 44 L D, Glucose 226 H, Calcium 8.4 L, Total Bilirubin 1.2 H, AST 26, ALT 16, Alkaline Phosphatase 121 H, Total Protein 6.0 L, Albumin 2.7 L D, Globulin 3.3 H, Albumin/Globulin Ratio 0.8 L I & O for Last 24 hours: Intake & Output 04/16/19 04/17/19 04/18/19 04/19/19 11:59 11:59 11:59 11:59 Intake Total 2117 / 2117 Output Total 900 / 900 Balance 1217 / 1217 Weight 133 lb 1 oz 134 lb 7 oz - *Routine HEENT Exam Head: Present: normocephalic Eye: Present: EOMI, PERRL ENT: Present: mucous membranes moist - *Routine Respiratory Exam Present: CTA bilaterally. Absent: accessory muscle use, rales, rhonchi, wheezes - *Routine Cardiovascular Exam Present: RRR. Absent: murmur, gallop, rubs - *Routine Extremities Exam Absent: edema, calf tenderness - *Routine Neurological Exam Present: alert, oriented X3, moving all extremities Progress Note: A&P (1) Hip fracture Status: Acute Current Visit: Yes (2) H/O aortic valve replacement with porcine valve Status: Acute Current Visit: Yes (3) RBBB (right bundle branch block with left anterior fascicular block) Status: Acute Current Visit: Yes (4) Renal insufficiency Status: Acute Current Visit: Yes (5) Diabetes mellitus type 2, noninsulin dependent Status: Chronic Current Visit: Yes (6) CAD (coronary artery disease) Status: Chronic Current Visit: No (7) Hx of CABG Status: Chronic Current Visit: No Assessment and Plan for All Diagnoses:: 1. Cardiac status stable. Echo shows LVEF and normally functioning aortic valve prosthesis. Nothing further to add. Follow up with cardiology after discharge. 2. Anemia, slightly worse due to IVF 3. CKD, improved with IVF.
--- NOTE | 2019-04-19 14:19 | Progress Note ---
Subjective Date: 04/19/19 Time: 13:30 Principal diagnosis: Hip fracture s/p surgery Interval history: Patient is is status post cephalo-medullary nailing LEFT hip post op day # 1. He is lying down on the bed and says he is doing well. Nursing staff informed that patient had issues with pain control overnight and this has been addressed by Dr. Guallpa this morning. Patient received IV morphine before physical therapy and says he is feeling drowsy. He normally takes regular oxycodone 15 mg 2-3 times a day at home for peripheral neuropathy. Says he is eating and drinking well. No history of any fevers, chills or rigors. No history of any nausea, vomiting, chest pain or SOB. PN: Obj Ex Vital signs: Temp Pulse Resp BP Pulse Ox 98.4 F 90 17 99/48 L 91 L 04/19/19 08:00 04/19/19 12:00 04/19/19 08:00 04/19/19 08:00 04/19/19 08:00 Narrative: Laboratory Results - last 24 hr 04/18/19 19:46: POC Glucose 214 H 04/18/19 20:54: POC Glucose 239 H 04/19/19 06:01: WBC 6.8, RBC 2.93 L, Hgb 9.4 L D, Hct 30.0 L, MCV 102.5 H, MCH 32.1 H, MCHC 31.4 L, RDW 13.6, Plt Count 189, MPV 8.0, Neut % (Auto) 63.6, Lymph % (Auto) 17.2, [place] % (Auto) 14.9 H, Eos % (Auto) 4.0, Baso % (Auto) 0.3, Neut # (Auto) 4.3, Lymph # (Auto) 1.2, [place] # (Auto) 1.0, Eos # (Auto) 0.3, Baso # (Auto) 0.0 04/19/19 06:01: Sodium 140, Potassium 4.0, Chloride 103, Carbon Dioxide 32, Anion Gap 9.0, BUN 33 H D, Creatinine 1.82 H, Estimated Creat Clear 31, Estimated GFR 37 L, Est GFR ( Amer) 44 L D, Glucose 226 H, Calcium 8.4 L, Total Bilirubin 1.2 H, AST 26, ALT 16, Alkaline Phosphatase 121 H, Total Protein 6.0 L, Albumin 2.7 L D, Globulin 3.3 H, Albumin/Globulin Ratio 0.8 L Intake & Output 04/17/19 04/18/19 04/19/19 04/20/19 11:59 11:59 11:59 11:59 Intake Total 2237 / 2237 Output Total 900 / 900 Balance 1337 / 1337 Weight 133 lb 1 oz 134 lb 7 oz Objective: I have reviewed her vital signs, lab results, medication, nursing notes, medical progress notes and also discussed with the nursing staff regarding his progress. Exam General appearance: Alert, awake, no acute distress Cardiovascular: regular rate & rhythm Respiratory: no respiratory distress, lungs clear to auscultation bilaterally Abd: soft and nontender. Bowel sounds heard over all 4 quadrants. On examination of the LEFT lower extremity, the limb lengths are equal. The alignment is neutral. The dressings over the LEFT hip are clean, dry and intact. No soakage or strikethrough noted. Attempted movements of the LEFT hip are painful. Distal neurovascular status is intact. Thigh and calf are soft and nontender. No clinical signs of DVT noted. - Urinary Catheter Management Matute Cath placed during this visit: yes Urethral indwelling: Yes Reason for continuing: Surgical procedure Progress Note: A&P (1) Hip fracture Status: Acute Current Visit: Yes (2) H/O aortic valve replacement with porcine valve Status: Acute Current Visit: Yes (3) RBBB (right bundle branch block with left anterior fascicular block) Status: Acute Current Visit: Yes (4) Renal insufficiency Status: Acute Current Visit: Yes (5) Diabetes mellitus type 2, noninsulin dependent Status: Chronic Current Visit: Yes (6) CAD (coronary artery disease) Status: Chronic Current Visit: No (7) Hx of CABG Status: Chronic Current Visit: No Assessment and Plan for All Diagnoses:: I have reviewed the findings and progress with the family. I have given them copies of the intraoperative x-rays and explained the procedure performed. There was some issues with his pain control and these were addressed by Dr. Guallpa appropriately. He can be mobilized/transferred with a walker and with the help of physical therapist weightbearing on the LEFT side as tolerated. Continue PT/OT, pain management with as needed analgesics. Continue DVT peripheral access for total 6 weeks postop. Discontinue IV fluids and urinary catheter. Patient is likely to be discharged to a care home facility after he meets the qualifying stay in hospital subject to clearance from physical therapy. Medical management as per Dr. Guallpa's team.
--- OUTSIDE RECORDS SUMMARY | 2019-04-19 15:19 | External Medical Summary | Continuity of Care Document ---
:1945 Author Organization [facility] Address [address] [address] [place] [address] Phone Care Team Providers Name Role Phone Tony Primary Care Provider Tony Attending Provider Ramu Attending Provider Aubrey Cedillo Attending Provider Allergies, Adverse Reactions, Alerts No known allergies. Medications Medication Status Dose Units Route Sig Qty Days Start End Instruct ions Date Date Gabapentin Active 300 MG Oral Twice a March day 2017 11:41am Furosemide Active 40 - MG Oral Daily March PT STA YAEL 80 , NEEDED WHEN 2018 LEGS ARE 11:42am SWELLING Oxycodone Hcl Active 15 MG Oral Every 6 March hours as , needed 2017 11:43am Metoprolol Active 12.5 MG Oral Twice a September Tartrate 2018 10:56am Aspirin Active 81 MG Oral Daily September 04, 2018 10:56am Atorvastatin Active 40 MG Oral At April Calcium bedtime , nightly 2018 10:04am Albuterol Active 2 PUFFS EVERY November Sulfate 4-6 14th, HOURS 2019 4:28pm Problems Active Problems Medical Problem Onset Date Status DIANA (acute kidney injury) Active H/O aortic valve replacement with Active porcine valve COPD with exacerbation Active Hip fracture Active Diabetes mellitus Active Acute delirium Active 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) CAD (coronary artery disease) Active Hypoxemia Active Aortic valve stenosis Active Dyspnea Active HLD (hyperlipidemia) Active HCAP (healthcare-associated Active pneumonia) Renal insufficiency Active Confusion and disorientation Active Bifascicular block Active Right lower lobe pneumonia Active Hx of CABG Active Diabetes mellitus type 2, noninsulin Act sheela dependent Pneumonia Active Lactic acid increased Active Procedures Procedure Date Performed Status XR chest portable April 18, 2019 completed XR hip LT 2-3V w/pelvis April 18, [address] head/brain wo con April 18, [address] cervical spine wo con April 18, 2019 completed XR femur LT 2V April 18, 2019 completed ECG initial Besson April 18, 2019 completed XR hip LT 2-3V w/pelvis April 18, 2019 completed Gamma Nail (Left) April 18, 2019 3:15pm completed XR chest 2V April 02, 2019 completed Relevant Diagnostic Tests and/or Laboratory Data Laboratory Results Test Date/Time Result Interpretation Reference Result Perfo rming Range Comment Site White Blood April 6.8 K/mm3 4.8-10.8 [facility], [address] [place] [address] 36 E Count 2018 [place] [address] 6:01am Red Blood Count April 2.93 M/mm3 4.60-6.20 [facility], [address] [place] [address] 36 E 2018 [place] [address] 6:01am Hemoglobin April 9.4 g/dL 14.1-18.0 Delta: 11.[address] 36 E 2018 on [place] [address] 6:01am 04/18/19-716 Hematocrit April 30.0 % 42.0-52.0 [facility], [address] [place] [address] 36 E 2018 [place] [address] 6:01am Mean April 102.5 fl 80-94 [facility], [address] [place] [address] 36 E Corpuscular 2018 Fern [place] [address] Volume 6:01am Mean April 32.1 pg 27.0-31.2 [facility], [address] [place] [address] E Corpuscular 2018 Fern [place] [address] Hemoglobin 6:01am Mean April 31.4 g/dL 31.8-35.4 [facility], [address] [place] [address] E Corpuscular 2018 [place] [address] Hemoglobin 6:01am Concent Red Cell April 13.6 % 11.5-17.5 [facility], [address] [place] [address] E Distribution 2018 [place] [address] Width 6:01am Platelet Count April 189 K/mm3 142-424 [facility], [address] [place] [address] E 2018 [place] [address] 6:01am Mean Platelet April 8.0 fl 7.4-10.4 [facility], [address] [place] [address] E Volume 2018 [place] Alonso 6:01am Neutrophils (%) April 63.6 % 37.0-80.0 [facility], [address] [place] [address] E (Auto) 2018 [place] [address] 6:01am Lymphocytes (%) April 17.2 % 10-50 [facility], [address] [place] [address] E (Auto) 2018 [place] [address] 6:01am Monocytes (%) April 14.9 % 1.7-9.3 [facility], [address] [place] [address] E (Auto) 2018 [place] [address] 6:01am Eosinophils (%) April 4.0 % 0.1-12.0 [facility], [address] [place] [address] E (Auto) 2018 [place] [address] 6:01am Basophils (%) April 0.3 % 0.1-2.0 [facility], [address] [place] [address] E (Auto) 2018 [place] [address] 6:01am Neutrophils # April 4.3 K/mm3 1.8-7.8 [facility], [address] [place] [address] E (Auto) 2018 [place] [address] 6:01am Lymphocytes # April 1.2 K/mm3 0.7-4.5 [facility], [address] [place] [address] 36 E (Auto) 2018 [place] [address] 6:01am Monocytes # April 1.0 K/mm3 0.1-1.0 [facility], [address] [place] [address] 36 E (Auto) 2018 [place] [address] 6:01am Eosinophils # April 0.3 K/mm3 0.0-0.4 [facility], [address] [place] [address] 36 E (Auto) 2018 [place] [address] 6:01am Basophils # April 0.0 K/mm3 0-0.2 [facility], [address] [place] [address] E (Auto) 2018 [place] [address] 6:01am Urine Color April Yellow Yellow [facility], [address] [place] [address] E 2018 [place] [address] 9:00am Urine November Clear Clear [facility], [address] [place] [address] E Appearance 2018 Margareth [place] [address]1107 9:00am Urine pH April 6.0 5.0-8.5 [facility], [address] [place] [address] E 2018 [place] [address] 9:00am Urine Specific November 1.015 1.005-1.03 [facility], [address] [place] [address] E [place] 2018 0 [place] [address]772 9:00am Urine Protein November Negative Negative [facility], [address] [place] [address] 36 E 2018 [place] [address]60 9:00am Urine Glucose November Negative Negative [facility], [address] [place] [address] E (UA) 2018 [place] 41216 9:00am Urine Ketones April Negative Negative [facility], [address] [place] [address] 36 E 2018 [place] [address] 9:00am Urine Blood November Trace-i Negative [facility], [address] [place] [address] E 2018 [place] [address] 9:00am Urine Nitrate November Negative Negative [facility], [address] [place] [address] 36 E 2018 [place] [address] 9:00am Urine Bilirubin November Negative Negative [facility], [address] [place] [address] E 2018 [place] 04117 9:00am Urine April 0.2 EU/dl [facility], [address] [place] [address] 36 E Urobilinogen 2018 [place] 5[address]84 9:00am Urine Leukocyte April Negative Negative [facility], [address] [place] [address] 36 E Esterase 2018 [place] 57720 9:00am Urine RBC April 3-5 #/hpf [facility], [address] [place] [address] 36 E 2018 [place] [address]161 9:00am Urine WBC April None #/hpf [facility], [address] [place] [address] 36 E 2018 [place] [address]87 9:00am Urine Squamous April Occasional [facility], [address] [place] [address] 36 E Epithelial 2018 #/hpf Margareth a [place] [address] Cells 9:00am Urine Bacteria April None /lpf NONE [facility], [address] [place] [address] 36 E 2018 [place] [address] 9:00am Troponin I April < 0.02 0.00-0.06 *ALERT* High [facility], [address] [place] [address] 36 E 2018 ng/ml levels of [place] [address] 7:17am Biotin can falsely depress Troponin results.Many dietary supplements promoted for hair,skin, and nail benefits contain biotin levels up to 650 times the recommended daily intake of biotin. In additon to dietary supplements, Biotin is occasionally prescribed for medical conditions. Sodium Level April 140 mmol/L 136-145 [facility], [address] [place] [address] 36 E 2018 [place] [address] 6:01am Potassium Level April 4.0 mmoL/L 3.5-5.1 [facility], [address] [place] [address] 36 E 2018 [place] [address]12 6:01am Chloride Level April 103 mmol/L 98-107 [facility], [address] [place] [address] 36 E 2018 [place] 37079 6:01am Carbon Dioxide April 32 mmol/L 21.0-32.0 [facility], [address] [place] [address] 36 E Level 2018 [place] 08171 6:01am Anion Gap April 9.0 mEq/L 5-15 [facility], [address] [place] [address] 36 E 2018 [place] [address]3316 6:01am Blood Urea April 33 mg/dL 7-18 Delta: 51 on [facility], [address] [place] [address] 36 E Nitrogen 201804/18/19 Sohan dotson [place] 139[address] 6:01am Creatinine April 1.82 mg/dL 0.70-1.30 [facility], [address] [place] [address] 36 E 2018 [place] [address] 6:01am Estimated April 31 mL/min 0-300 [facility], [address] [place] [address] 36 E Creatinine 2018 Margareth [place] 13617 Clearance 6:01am Estimated GFR April 44 ML/MIN >59 Delta: 34 on [facility], [address] [place] [address] 36 E ( 201804/18/19 Allisonpratibha dots[place] [address] Finnish) 6:01am Estimat April 37 ml/min >59 [facility], [address] [place] [address] 36 E Glomerular 2018 [place] [address] Filtration Rate 6:01am Glucose Level April 226 mg/dL 74-106 [facility], [address] [place] [address] 36 E 2018 [place] [address]375 6:01am Bedside Glucose April 239 70-110 [place] 2018 re (RALS) 8:54pm Calcium Level April 8.4 mg/dL 8.5-10.1 [facility], [address] [place] [address] 36 E 2018 [place] [address] 6:01am Total Bilirubin April 1.2 mg/dL 0.2-1.0 [facility], [address] [place] [address] 36 E 2018 [place] [address] 6:01am Direct April 0.2 mg/dL 0.0-0.2 [facility], [address] [place] [address] 36 E Bilirubin 2018 [place] 53743 7:17am Indirect April 0.5 mg/dL 0.0-0.9 [facility], [address] [place] [address] 36 E Bilirubin 2018 [place] [address] 7:17am Aspartate Amino April 26 U/L 15-37 [facility], [address] [place] [address] 36 E Transf 2018 [place] [address] (AST/SGOT) 6:01am Alanine April 16 U/L 12-78 [facility], [address] [place] [address] 36 E Aminotransferas 2018 Allison stone [place] [address] e (ALT/SGPT) 6:01am Total Protein April 6.0 gm/dL 6.4-8.2 [facility], [address] [place] [address] 36 E 2018 [place] [address] 6:01am Albumin April 2.7 gm/dL 3.4-5.0 Delta: 3.4 on [facility], [address] [place] [address] 36 E 201804/18/19-716 Cynpratibha [place] [address] 6:01am Globulin April 3.3 gm/dl 1.3-3.2 [facility], [address] [place] [address] 36 E 2018 [place] [address] 6:01am Albumin/Globuli April 0.8 1.1-1.8 [facility], [address] [place] [address] 36 E n Ratio 2018 [place] [address] 6:01am Alkaline April 121 U/L 46-116 [facility], [address] [place] [address] 36 E Phosphatase 2018 Fernmalika [place] [address]71 6:01am Diagnostic Imaging Reports Report Dictated Date/Time Dictated By Status Radiology Report April 02, 2019 Denilson Calle MD completed 3:23pm [address] [place] [address] XRay R eport Sig marj Patient: Jose Burger MR#: [id number] : 1945 Acct:[id number] Age/Sex: 73 / M ADM Date: 9 Loc: RAD Attending Dr: Sachin Jimenez Ordering Physician: Sachin Jimenez Date of Service: 04/02/19 Procedure(s): XR chest 2V Accession Number(s): [id number] cc: Denilson Calle MD; Sachin Jimenez ~ PROCEDURE: XR CHEST 2V CLINICAL HISTORY: COUGH,SPUTUM,SOB COMPARISON: CXR2V XR chest 2V from 05/2018 CXR1VP XR chest portable from 9 CXR2 XR chest AP from 06/13/2018 FINDINGS: Prior median sternotomy with aortic taya ve replacement. Normal heart size. COPD. Scattered areas of scarri ng. Old granulomatous disease. Degenerative changes thoracic spine. IMPRESSION: COPD with chronic changes, no acute fin ding Dictated by: Denilson Calle MD 04/02/2019 15:41 Electronically signed by Denilson Calle in OV 04/02/2019 15:41 Radiology Report April 18, 2019 Denilson Calle MD completed 7:54am [facility] [address] [place] [facility] [address] [place] [address] XRay R eport Sig marj Patient: Jose Burger MR#: [id number] : 1945 Acct:[id number] Age/Sex: 73 / M ADM Date: Loc: Attending Dr: Erik Guallpa MD Ordering Physician: Gaston Cedillo MD Date of Service: 04/18/19 Procedure(s): XR hip LT 2-3V w/pelvis Accession Number(s): [id number] cc: Denilson Calle MD; Sachin Jimenez ~ PROCEDURE: XR HIP LT 2-3V W/PELVIS CLINICAL INDICATION: fall Fall with left hip pain COMPARISON: PEL1V XR pelvis 1-2V from 06/13/2018 FINDINGS: There is an intertrochanteric left hip fracture with mild lateral displacement of the distal fracture fra gment by approximately 9 mm. There are mild osteoarthritic changes o f the hips and there is diffuse vascular calcification. IMPRESSION: A mildly displaced intertrochanteric le ft hip fracture Dictated by: Denilson Calle MD 04/18/2019 09:32 Electronically signed by Denilson Calle in OV 04/18/2019 09:32 Radiology Report April 18, 2019 Denilson Calle MD completed 7:54am [facility] [address] [place] [facility] [address] [place] [place] [address] XRay R eport Sig marj Patient: Jose Burger MR#: [id number] : 1945 Acct:[id number] Age/Sex: 73 / M ADM Date: 9 Loc: Attending Dr: Erik Guallpa MD Ordering Physician: Gaston Cedillo MD Date of Service: 04/18/19 Procedure(s): XR chest portable Accession Number(s): [id number] cc: Denilson Calle MD; Sachin Jimenez ~ PROCEDURE: XR CHEST PORTABLE CLINICAL HISTORY: fall Fall with injury and pain COMPARISON: CXR1VP XR chest portable f rom 06/10/2018 CXR2 XR chest AP from 06/13/2018 XR CHEST 2V from 04/02/2019 FINDINGS: Cardiomegaly. Prior CABG. Chronic int erstitial changes of the lungs with low lung volumes. No definite lob ar consolidation or collapse. No acute bony abnormalities. IMPRESSION: No acute findings. Dictated by: Denilson Calle MD 04/18/2019 09:37 Electronically signed by Denilson Calle in [place] 04/18/2019 09:37 Radiology Report April 18, 2019 Denilson Calle MD completed 7:35am [facility] [address] [place] [facility] [address] [place] [address] [address] Scan Report Sig marj Patient: Jose Burger MR#: [id number] : 1945 Acct:[id number] Age/Sex: 73 / M ADM Date: 9 Loc: Attending Dr: Erik Guallpa MD Ordering Physician: Gaston Cedillo MD Date of Service: 04/18/19 Procedure(s): CT head/brain wo con Accession Number(s): [id number] cc: Denilson Calle MD; Sachin Jimenez ~ PROCEDURE: CT HEAD/BRAIN WO CON CLINICAL INDICATION: fall Fall, pain, injury with pain, headache concussion/head injury COMPARISON: HEAD from 06/13/2018 TECHNIQUE: Axial images obtained. All CT scans at the facility use one or more dose reduction, viz: automa lauren exposure control, ma/kV adjustment per patient size (including targeted exams where dose is matched to indication, i.e. head), or i terative reconstruction technique. FINDINGS: No midline shift, mass effect, intracra nial hemorrhage, hydrocephalus, or extra-axial fluid col lection is evident. There is generalized atrophy with hypoattenuatio n of the periventricular white matter consistent with microangiopathic changes. The calvarium has an unremarkable appearance. No mastoid eff usion. Mild mucosal thickening of the ethmoid sinuses with a small amount of fluid in the left maxillary sinus. Minimal soft tis nona swelling left frontal scalp area IMPRESSION: 1. No acute intracranial findings Dictated by: Denilson Calle MD 04/18/2019 09:39 Electronically signed by Denilson Calle in [place] 04/18/2019 09:39 Radiology Report April 18, 2019 Denilson Calle MD completed 12:41pm [address] [id number] [facility] [address] [place] [address] XRay R eport Sig marj Patient: Jose Burger MR#: [id number] : 1945 Acct:[id number] Age/Sex: 73 / M ADM Date: 9 Loc: Attending Dr: Erik Guallpa MD Ordering Physician: Devon Ellis MD Date of Service: 04/18/19 Procedure(s): XR femur LT 2V Accession Number(s): [id number] cc: Denilson Calle MD; Sachin Jimenez ~ PROCEDURE: XR FEMUR LT 2V CLINICAL INDICATION: PREOP Follow-up hip fracture COMPARISON: No exams were available fo r comparison FINDINGS: Minimally displaced intertrochanteric l eft hip fracture once again noted. The mid distal aspect of the fe mur has an unremarkable appearance. There is generalized vascu lar calcification. Other findings:None. IMPRESSION: Intertrochanteric left hip fracture Dictated by: Denilson Calle MD 04/18/2019 14:54 Electronically signed by Denilson Calle in [place] 04/18/2019 14:54 Radiology Report April 18, 2019 Denilson Calle MD completed 7:03pm [address] [place] [id number] [facility] [address] [place] [address] XRay R eport Sig marj Patient: Jose Burger MR#: [id number] : 1945 Acct:[id number] Age/Sex: 73 / M ADM Date: 9 Loc: Attending Dr: Erik Guallpa MD Ordering Physician: Devon Ellis MD Date of Service: 04/18/19 Procedure(s): XR hip LT 2-3V w/pelvis Accession Number(s): [id number] cc: Denilson Calle MD; Sachin Jimenez ~ PROCEDURE: XR HIP LT 2-3V W/PELVIS CLINICAL INDICATION: LT GAMMA NAIL ORIF with C-arm COMPARISON: No exams were available fo r comparison FINDINGS: Fluoroscopy time: 1 minutes and 48 seco nds Multiple images are submitted during in sertion of long intramedullary rashid within the femur with a gamma nail proximally stabilizing the intertrochanteric fracture which did ap pear to be in good alignment. IMPRESSION: Status post ORIF left intertrochanteric fracture with good alignment Dictated by: Denilson Calle MD 04/19/2019 06:47 Electronically signed by Denilson Calle in [place] 04/19/2019 06:47 Radiology Report April 18, 2019 Denilson Calle MD completed 7:35am [facility] [address] [place] [facility] [address] [place] [address] [address] Scan Report Sig marj Patient: Jose Burger MR#: [id number] : 1945 Acct:[id number] Age/Sex: 73 / M ADM Date: 9 Loc: Attending Dr: Erik Guallpa MD Ordering Physician: Gaston Cedillo MD Date of Service: 04/18/19 Procedure(s): CT cervical spine wo con Accession Number(s): [id number] cc: Denilson Calle MD; Sachin Jiemnez ~ PROCEDURE: CT CERVICAL SPINE WO CON CLINICAL INDICATION: fall The neck pain following injury, fall wi th injury and pain COMPARISON: SPCERVWO CT cervical spine wo con from 06/13/2018 CT HEAD/BRAIN WO CON from 04/18/2019 TECHNIQUE: Axial images obtained with sagittal and coronal reformats. All CT scans at the facility use one or more d ose reduction, viz: automated exposure control, ma/kV adjustment per patient size (including targeted exams where dose is matched to indication, i.e. head), or iterative reconstruction technique. Axial spiral CT scanning performed of t he cervical spine beginning at the base of the skull and continuing to the upper T-spine. 3-D multiplanar reconstruction with 3-D man ipulation of volumetric data set in image rendering was completed by the radiologist and/or technologist with the supervision of pratibha morel radiologist on independent workstation. FINDINGS: No fracture or dislocation. Normal ali gnment. Mild multilevel degenerative changes a. No bony canal s tenosis. Chronic changes in the lung apices. There are nuchal ligam ent calcifications.. Gas is present in the upper thoracic esophagus . IMPRESSION: Degenerative changes, no acute findings Dictated by: Denilson Calle MD 04/18/2019 09:43 Electronically signed by Denilson Calle in [place] 04/19/2019 08:05 Chief Complaint and Reason for Visit Chief Complaint CXR left hip fracture Reason for Visit H/O aortic valve replacement with porcine valve Hip fracture RBBB (right bundle branch bl ock with left anterior fascicular block) Renal insufficiency Diabetes mellitus type 2, no ninsulin dependent Encounters Encounter Location(s) Arrival/Admit Date Discharge/Depart Date Provider(s) Registered [facility] Physician April 02, 2019 Sachin [facility] 2:56pm Admitted [facility] Physician April 18, Erik Guallpa Inpatient Group-Second 2019 9:50am MD Floor Registered [facility] Physician April 19, Gaston Burgos Inpatient Group- 2019 3:10pm MD Mamadou Recent Diagnosis Onset Date H/O aortic valve replacement with porcine valve Hip fracture RBBB (right bundle branch block with left anterior fascicular block) Renal insufficiency Diabetes mellitus type 2, noninsulin dependent Assessments See care plan goals Functional Status Observation Response Date Recorded Oral Care Ability Independent April 18, 2019 10:36am Bathing Ability Standby Assistance April 19, 2019 7:52am Eating (Feeding) Ability Independent April 18, 2019 10:36am Toileting Ability Maximum Assistance April 18, 2019 10:36am Ambulation Ability Total Dependance April 18, 2019 10:36am Goals Acute Goals Nursing Diagnosis: Knowledge Deficit D isease/Condition Goal(s): Education of di sease process Instruction(s): Follow provider p linda/instructions (See attached discharge education) Follow/up with primary care provider as instructed in discharge packet Ambulatory Goals Patient verbalized understanding of dise ase process. Patient to follow plan of care. Education provided. Mental Status Observation Response Date Recorded Comprehension Ability No Impairment April 19 9 1:00pm Able to Read Yes April 18, 2019 10:36am Able to Write Yes April 18, 2019 10:36am Ability to Follow Directions Excellent April 182018 10:36am Eye Contact Direct Eye Contact April 18, 2019 10:36am Oral Expression Ability No Impairment April 18 10:36am Medical Equipment No Medical Equipment Information available Insurance Providers Guarantor Jose Burger Address [address] [place] [address] Contact Info. Home Phone: Payer Policy Id Coverage Id Subscriber's Subscriber Id Effective E xpiration Name Date Date Medicare [id number] Jose Burger [id number] [facility] [id number] Jose Burger [id number] [place] Self Pay Self N/A Plan of Treatment Follow up as ordered by PCP Future Tests Future scheduled test information is unavailable Pending Tests Pending diagnostic test information is unavailable Future Visits Future appointment information is unavailable Referrals to Other Providers Reason for Referral Start Provider Provider Contact Provider Address Referral Date Information Admission to [facility] April [address] Future Procedures Future procedure information is unavailable Future Medications Future medication information is unavailable Patient Instructions Hip Fracture DI for Hip Fracture DI for Hip Replacement DI for Surgical Site Infection Social History Assigned Sex Male Vital Signs Vital Reading Result Reference Range Collection Date/ Time Height 173 cm April 19 4:00am Weight 60.97 kg April 19 4:00am Body Temperature 98.4 [degF] 97.6-99.6 April 19, 2019 8:00am Heart Rate 90 /min 60-90 April 19 12:00pm Respiratory rate 17 /min 12-24 April 19, 2019 8:00am Oxygen saturation by 91 % 95-100 April 192018 Pulse oximetry 8:00am BP Systolic 99 mm[Hg] 110-140 April 19 8:00am BP Diastolic 48 mm[Hg] 60-90 April 19 8:00am BMI (Body Mass Index) 20.3 kg/m2 April 052018 4:00am Inhaled oxygen 28 % April 18 concentration 8:00pm
--- NOTE | 2019-04-20 09:15 | Progress Note ---
Internal Medicine - PN: Subj *Date: 04/20/19 *Time: 08:40 Interval history: Patient did well overnight. Only took 2 oral doses of oxycodone yesterday with a single dose of morphine prior to physical therapy. Got up to bedside chair a few times and use bedside commode. Denies nausea, vomiting, chest pain, shortness of breath. Still has significant pain in his left leg at surgical site as well as his chronic neuropathy pain. Tolerated increase in gabapentin however has been a little more tired per his . Blood sugars have been more elevated requiring 14 units of insulin throughout the day yesterday. Exam Vital signs and Labs for Last 24 Hours: Temp Pulse Resp BP Pulse Ox 99.5 F 84 18 105/52 L 95 04/20/19 07:59 04/20/19 08:00 04/20/19 08:31 04/20/19 07:59 04/20/19 08:00 Laboratory Results - last 24 hr 04/19/19 05:46: POC Glucose 224 H 04/19/19 10:54: POC Glucose 223 H 04/19/19 16:11: POC Glucose 191 H 04/19/19 20:07: POC Glucose 290 H 04/20/19 05:44: POC Glucose 274 H I & O for Last 24 hours: Intake & Output 04/17/19 04/18/19 04/19/19 04/20/19 23:59 23:59 23:59 23:59 Intake Total 1140 / 1140 1097 / 1097 1487 / 1487 Output Total 600 / 600 300 / 300 Balance 540 / 540 797 / 797 1487 / 1487 Weight 60.356 kg 60.98 kg 64.665 kg Narrative: - Constitutional NAD, thin, in bed - *Routine HEENT Exam Head: Present: normocephalic Eye: Present: EOMI, PERRL ENT: Present: mucous membranes moist - *Routine Neck Exam Present: supple. Absent: lymphadenopathy - *Routine Respiratory Exam Present: CTA bilaterally - *Routine Cardiovascular Exam Present: RRR - *Routine Abdominal Exam Present: soft, normoactive bowel sounds. Absent: tenderness - *Routine Extremities Exam Absent: cyanosis, clubbing, edema Comments: left leg is equal compared to right, Incision CDI, TTP superficial to left hip. - *Routine Skin Exam Present: warm. Absent: rash - *Routine Neurological Exam Present: alert, oriented X3 Assessment and Plan (1) Hip fracture Current visit: Yes Status: Acute Qualifiers: Encounter type: initial encounter Fracture type: closed Laterality: left Qualified Code(s): S72.002A - Fracture of unspecified part of neck of left femur, initial encounter for closed fracture Category: Medical Code(s): S72.009A - Fracture of unspecified part of neck of unspecified femur, initial encounter for closed fracture (2) H/O aortic valve replacement with porcine valve Current visit: Yes Status: Acute Category: Surgical Code(s): Z95.3 - Presence of xenogenic heart valve (3) RBBB (right bundle branch block with left anterior fascicular block) Current visit: Yes Status: Acute Category: Medical Code(s): I45.2 - Bifascicular block (4) Renal insufficiency Current visit: Yes Status: Acute Category: Medical Code(s): N28.9 - Disorder of kidney and ureter, unspecified (5) Diabetes mellitus type 2, noninsulin dependent Current visit: Yes Status: Chronic Category: Medical Code(s): E11.9 - Type 2 diabetes mellitus without complications (6) CAD (coronary artery disease) Current visit: No Status: Chronic Qualifiers: Coronary Disease-Associated Artery/Lesion type: bypass graft [place] vs. transplanted heart: [place] heart Associated angina: without angina Qualified Code(s): I25.810 - Atherosclerosis of coronary artery bypass graft(s) without angina pectoris Category: Medical Code(s): I25.10 - Atherosclerotic heart disease of [place] coronary artery without angina pectoris (7) Hx of CABG Current visit: No Status: Chronic Category: Surgical Code(s): Z95.1 - Presence of aortocoronary bypass graft - Assessment and plan all Dx Assessment and Plan for all problems:: Continue current pain regimen. Awaiting 3 midnights for qualifying stay to discharge to shelter tomorrow. Plan to discharge to [facility] for continued physical therapy and rehab. PT to continue to see patient work with him while he is admitted. We will add protein supplements with Ensure and boost to diet today. Recommended getting out of bed a time or 2 and to bedside chair as this appears to be more comfortable to him. Continuing Lovenox while admitted, will transition to oral anticoagulation to be determined tomorrow to complete 6 weeks of DVT prophylaxis. Plan to initiate basal insulin tonight given hyperglycemia. Will discharge to shelter on a regimen pending response. Will obtain A1c today. Continues to be full code. Prognosis good, clinically stable.
[2019-04-20 13:51] LABS: Anion Gap 8.5 mEq/L (5-15); Basophils % 0.2 % (0.1-2.0); Eosinophils # 0.1 K/mm3 (0.0-0.4); Eosinophils % 1.2 % (0.1-12.0); Hematocrit 28.8 % (42.0-52.0); Lymphocytes # 1.8 K/mm3 (0.7-4.5); Lymphocytes % 21.3 % (10-50); Mean Corpuscular HGB Conc 31.3 g/dL (31.8-35.4); Mean Corpuscular Volume 103.9 fl (80-94); Mean Platelet Volume 8.1 fl (7.4-10.4); Monocytes # 1.2 K/mm3 (0.1-1.0); Monocytes % 14.6 % (1.7-9.3); Neutrophils # 5.2 K/mm3 (1.8-7.8); Neutrophils % 62.7 % (37.0-80.0); Platelet Count 192 K/mm3 (142-424); Red Blood Count 2.78 M/mm3 (4.60-6.20); Red Cell Distribution Width 13.5 % (11.5-17.5); White Blood Count 8.3 K/mm3 (4.8-10.8)
--- NOTE | 2019-04-20 16:28 | Progress Note ---
Subjective Date: 04/20/19 Time: 16:00 Principal diagnosis: Hip fracture s/p surgery Interval history: Patient is status post cephalo-medullary nailing LEFT femur post op day #2. Patient is sitting out in the chair. Says he is doing well and reports no problems. He says his pain is better controlled today but still complaining of pain from his peripheral neuropathy. No history of any nausea or vomiting. No history of any cough, chest pain, shortness of breath or palpitations. Patient says he is eating and drinking well. PN: Obj Ex Vital signs: Temp Pulse Resp BP Pulse Ox 99.5 F 65 18 105/52 L 95 04/20/19 07:59 04/20/19 12:00 04/20/19 08:31 04/20/19 07:59 04/20/19 08:00 Narrative: Laboratory Results - last 24 hr 04/19/19 05:46: POC Glucose 224 H 04/19/19 10:54: POC Glucose 223 H 04/19/19 16:11: POC Glucose 191 H 04/19/19 20:07: POC Glucose 290 H 04/20/19 05:44: POC Glucose 274 H 04/20/19 11:39: POC Glucose 413 H* 04/20/19 11:49: POC Glucose 405 H* 04/20/19 13:25: WBC 8.3, RBC 2.78 L, Hgb 9.0 L, Hct 28.8 L, MCV 103.9 H, MCH 32.5 H, MCHC 31.3 L, RDW 13.5, Plt Count 192, MPV 8.1, Neut % (Auto) 62.7, Lymph % (Auto) 21.3, [place] % (Auto) 14.6 H, Eos % (Auto) 1.2, Baso % (Auto) 0.2, Neut # (Auto) 5.2, Lymph # (Auto) 1.8, [place] # (Auto) 1.2 H, Eos # (Auto) 0.1, Baso # (Auto) 0.0 04/20/19 13:25: Sodium 135 L, Potassium 4.5, Chloride 100, Carbon Dioxide 31, Anion Gap 8.5, BUN 38 H, Creatinine 1.79 H, Estimated Creat Clear 33, Estimated GFR 37 L, Est GFR ( Amer) 45 L, Glucose 222 H, Calcium 9.0 04/20/19 13:25: Hemoglobin A1c 9.8 H Exam General appearance: alert, active, awake, no acute distress Cardiovascular: regular rate & rhythm, normal peripheral pulses Respiratory: No respiratory distress noted, speaks in full sentences ABD: soft and non tender Neuro: alert, awake, oriented x 3 Psych: normal mood and affect On examination of the lower extremities the limb lengths are equal. Thigh and calf are soft and nontender. On examination of the LEFT hip/thigh the dressings are clean, dry and intact. The dressings are changed by me. There is no soakage of the dressings. All 3 incisions look clean and healthy. No evidence of any infection or other complications is noted. Distal pulses are 1+. Distal sensation is intact to light touch throughout. No motor deficits noted distally. - Urinary Catheter Management Matute Cath placed during this visit: no Urethral indwelling: Yes Progress Note: A&P (1) Hip fracture Status: Acute Current Visit: Yes (2) H/O aortic valve replacement with porcine valve Status: Acute Current Visit: Yes (3) RBBB (right bundle branch block with left anterior fascicular block) Status: Acute Current Visit: Yes (4) Renal insufficiency Status: Acute Current Visit: Yes (5) Diabetes mellitus type 2, noninsulin dependent Status: Chronic Current Visit: Yes (6) CAD (coronary artery disease) Status: Chronic Current Visit: No (7) Hx of CABG Status: Chronic Current Visit: No Assessment and Plan for All Diagnoses:: I have reviewed the clinical findings and progress with the patient and family. Patient is doing well from an orthopedic standpoint and reports no problems. Continue mobilization weightbearing as tolerated on the LEFT side with the walker; continue PT/OT. Continue DVT prophylaxis. Recommend DVT prophylaxis for 6 weeks postop- the appropriate agents include Lovenox, Aspirin 325 mg, Xarelto (Rivaroxaban), Eliquis (apixaban) and Coumadin. He is likely to be discharged [facility] to a [facility]. Follow-up in my office in 2 weeks time with check x-ray. Please feel free to call our office at [phone] for any orthopaedic questions. Medical management as per Dr. Guallpa.
--- NOTE | 2019-04-20 21:45 | Discharge Summary ---
General - General Admission date:: 04/18/19 Discharge date: 04/21/19 HPI HPI: Mr. Burger is a 73-year-old white male with history of bypass and aortic valve replacement with trifecta bioprosthetic valve 07/16/2018 who presented to the ER after falling at home. He states he got up out of bed and walked to the door to let his dog out and fell after becoming dizzy. He denied any chest pain, pressure or tightness. Does not think he lost consciousness. Denies any head trauma. Patient noted left hip pain after fall and was transported to the ER for evaluation. X-ray of the left hip showed mildly displaced intertrochanteric hip fracture. Patient admitted to medicine for further evaluation and treatment. Cardiology consulted for preop evaluation. Patient does admit to using Lasix recently due to lower extremity edema and shortness of breath. Patient has chronic kidney disease with baseline creatinine greater than 2, history of coronary artery disease, no CHF, no insulin-dependent diabetes. Hip fracture repair is an intermediate risk procedure. Hospital Course Hospital Course: Admitted to Medicine for surgical management of left hip fracture. Orthopedics and Cardiology consulted for surgery and clearance respectively. Patient cleared by Cards for procedure. Hip fixed by Ortho. Patient tolerated the procedure well with no complications. Required IV pain meds initially due to difficulty with control. Improved with resuming home pain regimen and PRN IV morphine. Able to participate with PT. Tolerated PO meds and nutrition. DVT prophy via lovenox during admission. Transitioned to PO for continued DVT prophy with plan of 6 weeks total of therapy. Will initiate Eliquis 2.5mg BID (renally dosed). Of note had elevated glucose during admission. Required 14-24 units of insulin daily. Previously on PO antihyperglycemics as outpatient however patient reports that he has not been taking them for over a month. Was taking glipizide. Had discussion during admission that he is adamant against taking insulin so we will not discharge on insulin. Did check and A1c during admission and found to be elevated at 9.8. Patient to discuss diabetes management with his PCP after discharge home. Plan for glipizide daily until then. Neuropathy -Continue patient's oxycodone. Additionally increase his gabapentin to 600 mg twice daily. Based on his kidney dysfunction and GFR, 600 twice daily is maximal dosing. Of note, had some low-grade fever on postop day 2 after admission. Resolved without intervention. Suspect related to surgery as he had no other signs or symptoms of infection. On day of discharge, patient denies cough, congestion, chest pain, fever or chills, upset stomach. Pain at surgical site is stable. Otically stable for discharge to alf. Per Ortho: "Patient is doing well from an orthopedic standpoint and reports no problems. Continue mobilization weightbearing as tolerated on the LEFT side with the walker; continue PT/OT. Continue DVT prophylaxis. Recommend DVT prophylaxis for 6 weeks postop- the appropriate agents include Lovenox, Aspirin 325 mg, Xarelto (Rivaroxaban), Eliquis (apixaban) and Coumadin. Follow-up in my office in 2 weeks time with check x-ray. Please feel free to call our office at [phone] for any orthopaedic questions." Objective Vital signs: Temp Pulse Resp BP Pulse Ox 100.6 F H 91 H 21 109/56 L 94 L 04/20/19 20:00 04/20/19 20:00 04/20/19 20:00 04/20/19 20:00 04/20/19 20:00 Narrative: - Constitutional NAD, thin, in bed - *Routine HEENT Exam Head: Present: normocephalic Eye: Present: EOMI, PERRL ENT: Present: mucous membranes moist - *Routine Neck Exam Present: supple. Absent: lymphadenopathy - *Routine Respiratory Exam Present: CTA bilaterally - *Routine Cardiovascular Exam Present: RRR - *Routine Abdominal Exam Present: soft, normoactive bowel sounds. Absent: tenderness - *Routine Extremities Exam Absent: cyanosis, clubbing, edema Comments: left leg is equal compared to right, Incision CDI, TTP superficial to left hip. - *Routine Skin Exam Present: warm. Absent: rash - *Routine Neurological Exam Present: alert, oriented X3 Results Labs on day of discharge: Labs from last 24 hours 04/20/19 04/20/19 04/20/19 20:16 16:38 13:25 WBC RBC Hgb Hct MCV MCH MCHC RDW Plt Count MPV Neut % (Auto) Lymph % (Auto) [place] % (Auto) Eos % (Auto) Baso % (Auto) Neut # (Auto) Lymph # (Auto) [place] # (Auto) Eos # (Auto) Baso # (Auto) Sodium Potassium Chloride Carbon Dioxide Anion Gap BUN Creatinine Estimated Creat Clear Estimated GFR Est GFR ( Amer) Glucose POC Glucose 161 H 204 H Hemoglobin A1c 9.8 H Calcium 04/20/19 04/20/19 04/20/19 13:25 13:25 11:49 WBC 8.3 RBC 2.78 L Hgb 9.0 L Hct 28.8 L MCV 103.9 H MCH 32.5 H MCHC 31.3 L RDW 13.5 Plt Count 192 MPV 8.1 Neut % (Auto) 62.7 Lymph % (Auto) 21.3 [place] % (Auto) 14.6 H Eos % (Auto) 1.2 Baso % (Auto) 0.2 Neut # (Auto) 5.2 Lymph # (Auto) 1.8 [place] # (Auto) 1.2 H Eos # (Auto) 0.1 Baso # (Auto) 0.0 Sodium 135 L Potassium 4.5 Chloride 100 Carbon Dioxide 31 Anion Gap 8.5 BUN 38 H Creatinine 1.79 H Estimated Creat Clear 33 Estimated GFR 37 L Est GFR ( Amer) 45 L Glucose 222 H POC Glucose 405 H* Hemoglobin A1c Calcium 9.0 04/20/19 04/20/19 11:39 05:44 WBC RBC Hgb Hct MCV MCH MCHC RDW Plt Count MPV Neut % (Auto) Lymph % (Auto) [place] % (Auto) Eos % (Auto) Baso % (Auto) Neut # (Auto) Lymph # (Auto) [place] # (Auto) Eos # (Auto) Baso # (Auto) Sodium Potassium Chloride Carbon Dioxide Anion Gap BUN Creatinine Estimated Creat Clear Estimated GFR Est GFR ( Amer) Glucose POC Glucose 413 H* 274 H Hemoglobin A1c Calcium DS: Diagnosis - Discharge Diagnosis (1) Hip fracture Status: Acute (2) H/O aortic valve replacement with porcine valve Status: Chronic (3) RBBB (right bundle branch block with left anterior fascicular block) Status: Chronic (4) Renal insufficiency Status: Acute (5) Diabetes mellitus type 2, noninsulin dependent Status: Chronic (6) CAD (coronary artery disease) Status: Chronic (7) Hx of CABG Status: Chronic Discharge Plan - Patient Discharge Instructions ACTIVITY: Up with assistance DIET: diabetic diet Patient Instructions: Hip Fracture, DI for Hip Fracture, DI for Hip Replacement, DI for Surgical Site Infection - Follow up Plan Disposition: er [facility] Home Medications: Home Medications Medication Instructions Recorded Confirmed Type furosemide 40 mg tablet 40 - 80 mg PO DAILY PRN 03/19/18 04/18/19 History aspirin 81 mg tablet,delayed 81 mg PO DAILY 09/04/18 04/18/19 History release metoprolol tartrate 25 mg tablet 12.5 mg PO BID tab 09/04/18 04/18/19 History Albuterol Sulfate [Albuterol HFA 2 puffs INHALATION Q4-6H PRN 04/18/19 04/18/19 History Inhaler] Atorvastatin Calcium [Atorvastatin 40 mg PO HS 04/18/19 04/18/19 History 40mg Tab] Gabapentin [Gabapentin 300mg Cap] 600 mg PO BID 30 Days #60 cap 04/20/19 Rx Oxycodone HCl [Oxycodone (IR) 15mg 15 mg PO Q6HP 7 Days #28 tab 04/20/19 Rx Tab] Apixaban [Eliquis 2.5mg tab] 2.5 mg PO BID 40 Days #80 tab 04/21/19 Rx glipiZIDE [Glipizide] 1 tab PO DAILY 30 Days #30 tab 04/21/19 Rx Prescriptions/Medication Reconciliation: New Sennosides [Senokot 8.6mg tablet] 8.6 mg PO DAILYP PRN tablet PRN Reason: Constipation glipiZIDE [Glipizide] 1 tab PO DAILY 30 Days #30 tab Continued furosemide 40 mg tablet 40 - 80 mg PO DAILY PRN PRN Reason: swelling aspirin 81 mg tablet,delayed release 81 mg PO DAILY metoprolol tartrate 25 mg tablet 12.5 mg PO BID tab Atorvastatin Calcium [Atorvastatin 40mg Tab] 40 mg PO HS Albuterol Sulfate [Albuterol HFA Inhaler] 2 puffs INHALATION Q4-6H PRN PRN Reason: copd Oxycodone HCl [Oxycodone (IR) 15mg Tab] 15 mg PO Q6HP 7 Days #28 tab Changed Gabapentin [Gabapentin 300mg Cap] 600 mg PO BID 30 Days #60 cap - Problem Reconciliation Problems Reviewed?: Yes
== END 2019-04-21 10:56 | DRG 482 ==
LOC: ER 07:03 → 2ND 08:32
PROVIDERS: ADMIT Emergency Medicine; ATTEND Internal Medicine Adolescent Medicine
CPT/HCPCS: 36415; 70450; 71010; 71045; 72125; 73502; 73552; 76000; 80048; 80053; 80076; 81001; 82962; 83036; 84484; 85025; 86850; 93005; 93306; 94761; 96365; 96375; 97110; 97116; 97162; 97166; 99285; C1713; C1769; C1776; J2405

== ENCOUNTER → 2019-05-07 12:47 | Outpatient (CLI) | payer MEDICARE, OTHER, SELFPAY ==
--- NOTE | 2019-05-07 12:52 | XR_ITS ---
PROCEDURE: XR FEMUR LT 2V CLINICAL INDICATION: sp LT femur nailing DOS 04/18/19 Follow-up left hip fracture/ COMPARISON: XR FEMUR LT 2V from 04/18/2019 XR HIP LT 2-3V W/PELVIS from 04/18/2019 XR HIP LT 2-3V W/PELVIS from 05/07/2019 FINDINGS: There is diffuse vascular calcification. Gamma nail with long intramedullary rashid is present stabilizing the intertrochanteric fracture. There is good alignment with only minimal lateral displacement of the distal fracture fragment. The distal femur has an unremarkable appearance. Fracture line is still visible. IMPRESSION: Good alignment status post ORIF left femoral neck fracture Dictated by: Denilson Calle MD 05/07/2019 15:42 Electronically signed by Denilson Calle MD in [place] 05/07/2019 15:42
== END ==
PROVIDERS: PCP Internal Medicine; Visit Provider Orthopaedic Surgery
DX: Z48.89 Encounter for other specified surgical aftercare (principal); M81.0 Age-related osteoporosis without current pathological fracture
CPT/HCPCS: 73502; 73552

== ENCOUNTER → 2019-05-16 10:18 | Outpatient (CLI) | payer MEDICARE, OTHER, SELFPAY ==
--- NOTE | 2019-05-16 10:20 | XR_ITS ---
PROCEDURE: XR DEXA AXIAL SKELETON CLINICAL HISTORY: evaluate for osteoporosis COMPARISON: No exams were available for comparison FINDINGS: The L1-L4 density is 1.023 g cm sq with a T-score of -1.6 consistent with osteopenia. Right femoral neck density is 0.611 grams/centimeter sq with a T-score of -3.5 consistent with osteoporosis. IMPRESSION: Osteoporosis with fracture risk. Treatment advised. Recommend follow-up exam in 1 year Dictated by: Denilson Calle MD 05/16/2019 16:14 Electronically signed by Denilson Calle MD in [place] 05/16/2019 16:14
== END ==
PROVIDERS: PCP Internal Medicine; Visit Provider Orthopaedic Surgery
DX: M81.0 Age-related osteoporosis without current pathological fracture (principal)
CPT/HCPCS: 77080

== ENCOUNTER → 2019-06-10 10:46 | Outpatient (CLI) | payer MEDICARE, OTHER, SELFPAY ==
--- NOTE | 2019-06-10 10:53 | XR_ITS ---
PROCEDURE: XR HIP LT 2-3V W/PELVIS CLINICAL INDICATION: sp LT femur nailing DOS 04/18/19 Follow-up surgery COMPARISON: XR HIP LT 2-3V W/PELVIS from 05/07/2019 XR FEMUR LT 2V from 06/10/2019 FINDINGS: Status post ORIF intertrochanteric fracture of the left femur. Gamma nail with long intramedullary rashid is in place in good position. There is some callus formation noted at the fracture site medially. There is diffuse vascular calcification. The intramedullary rashid is in good position throughout the femur. IMPRESSION: Status post ORIF healing left femoral neck intertrochanteric fracture with good alignment Dictated by: Denilson Calle MD 06/10/2019 12:07 Electronically signed by Denilson Calle MD in [place] 06/10/2019 12:07
== END ==
PROVIDERS: PCP Internal Medicine; Visit Provider Orthopaedic Surgery
DX: Z09 Encounter for follow-up examination after completed treatment for conditions other than malignant neoplasm (principal); S72.002D Fracture of unspecified part of neck of left femur, subsequent encounter for closed fracture with routine healing
CPT/HCPCS: 73502; 73552

== ENCOUNTER 2019-07-10 08:47 | Outpatient (CLI) | payer MEDICARE, OTHER, SELFPAY ==
[2019-07-10 09:07] VITALS: BP 123/65; PULSE 61; RESP 18; TEMP 36.6; O2SAT 98
== END 2019-07-10 09:22 | disposition home or self-care (01) ==
LOC: INF 08:47
PROVIDERS: Visit Provider Internal Medicine
DX: M81.0 Age-related osteoporosis without current pathological fracture (principal); N18.3 Chronic kidney disease, stage 3 (moderate)
CPT/HCPCS: 96372; J0897

== ENCOUNTER → 2019-10-25 13:58 | Outpatient (CLI) | payer MEDICARE, OTHER, SELFPAY ==
--- NOTE | 2019-10-25 14:07 | CA_ITS ---
APPROVED REPORT EXAM: Comprehensive 2D, Doppler, and color-flow Echocardiogram Forming Machine Operator: Florencia Hull CRT Ht: 5 ft 8 in Wt: 248lbs BSA: 2.24 BP: 153/83 mmHg Indications: AVR 07/16-, BOVINE VALVE, CABG, CAD, CP, COPD, CABG 2D Dimensions LVOT 1.58 cm (M/F) 1.5-2.5 M-Mode Dimensions RVDd 2.35 cm (0.9-2.6) LVDd 4.67 cm (3.5-5.7) LVDs 3.07 cm (3.5-5.7) IVSd 1.16 cm (0.6-1.1) PWd 0.61 cm (0.6-1.1) EF (Teich) 63.30% FS 34.30% EDV (Teich) 100.80 mL ESV (Teich) 37.00 mL LV Diastology E/A Ratio 0.77 Aortic Valve LVOT Max 123.00 (70-110 cm/s) LVOT VTI 24.26 cm Mitral Valve MV A Velocity 75.00 (40-130 cm/s) Left Ventricle Left atrium is mildly enlarged, left ventricle is normal size, mild concentric left ventricular hypertrophy, visually estimated ejection fraction 55% with no regional wall motion abnormality. Grade 1 diastolic dysfunction seen without tissue Doppler evidence of raise left atrial pressure. Right Ventricle Right atrium and right ventricular normal size and contractility. Aortic Valve There is a bioprosthetic valve in the aortic position, the valve is well-seated, there is no aortic outflow obstruction or aortic insufficiency. Mitral Valve Mitral valve is minimally thickened, there is mild mitral regurgitation. Tricuspid Valve Tricuspid valve is grossly normal, there is mild tricuspid regurgitation, tricuspid regurgitation jet velocity is inadequate for calculation of the right ventricular systolic pressure. Pulmonic Valve Pulmonic valve is poorly visualized. Great Vessels Aortic root is normal size. Pericardium No significant pericardial effusion noted. Conclusion 1. Mildly enlarged left atrium, normal left ventricular size, mild concentric left ventricular hypertrophy, visually estimated ejection fraction 55% with no regional wall motion abnormality, grade 1 diastolic dysfunction seen without tissue Doppler evidence of raise left atrial pressure. 2. Normal functioning bioprosthetic valve in the aortic position. 3. Mild mitral and tricuspid regurgitation. 4. No significant pericardial effusion noted. Electronically signed by : Charlie Haynes, 10/26/2019 11:06:50
== END ==
PROVIDERS: PCP Internal Medicine; Visit Provider Internal Medicine
DX: R06.09 Other forms of dyspnea (principal)
CPT/HCPCS: 93306

== ENCOUNTER → 2019-11-20 14:24 | Outpatient (CLI) | payer MEDICARE, OTHER, SELFPAY ==
--- NOTE | 2019-11-20 14:32 | XR_ITS ---
PROCEDURE: XR FEMUR RT 2V CLINICAL INDICATION: FALL,11/18 RT HIP AND THIGH PAIN COMPARISON: XR FEMUR LT 2V from 04/18/2019 XR FEMUR LT 2V from 06/10/2019 FINDINGS: No fracture or dislocation. No lytic or blastic change. There is normal mineralization. There is diffuse vascular calcification. There are mild osteoarthritic changes of the hip and knee. Other findings:None. IMPRESSION: Mild osteoarthritis, no acute finding Dictated by: Denilson Calle MD 11/20/2019 15:07 Electronically signed by Denilson Calle MD in [place] 11/20/2019 15:07
--- NOTE | 2019-11-20 14:32 | XR_ITS ---
PROCEDURE: XR HIP RT 2-3V W/PELVIS CLINICAL INDICATION: Posttraumatic pain, right hip femur pain COMPARISON: XR HIP LT 2-3V W/PELVIS from 06/10/2019 FINDINGS: AP view of the pelvis shows a gamma nail with an intramedullary rashid which is incompletely imaged. There are mild osteoarthritic changes of both hips with diffuse vascular calcification. No acute fracture or dislocation. Facet arthritic changes are present on the right at L4-5. There is an old left subtrochanteric fracture IMPRESSION: Degenerative changes, no acute fracture. Prior left hip pinning Dictated by: Denilson Calle MD 11/20/2019 15:01 Electronically signed by Denilson Calle MD in [place] 11/20/2019 15:01
== END ==
PROVIDERS: PCP Internal Medicine; Visit Provider Internal Medicine
DX: M25.551 Pain in right hip (principal); M79.651 Pain in right thigh; W19.XXXA Unspecified fall, initial encounter
CPT/HCPCS: 73502; 73552

== ENCOUNTER 2020-01-16 10:00 | Outpatient (CLI) | payer MEDICARE, OTHER, SELFPAY ==
[2020-01-16 10:20] VITALS: BP 123/51; PULSE 61; RESP 18; TEMP 36.6; O2SAT 97
== END 2020-01-16 10:30 | disposition home or self-care (01) ==
LOC: INF 10:02
PROVIDERS: Visit Provider Internal Medicine
DX: M81.0 Age-related osteoporosis without current pathological fracture (principal); N18.3 Chronic kidney disease, stage 3 (moderate)
CPT/HCPCS: 96372; J0897

== ENCOUNTER → 2020-04-08 13:47 | Outpatient (CLI) | payer MEDICARE, OTHER, SELFPAY ==
--- NOTE | 2020-04-08 | CA_ITS ---
APPROVED REPORT Biogeographer: Shikha Jc RVT Laterality: Bilateral Study Quality: Good Indications: Syncope, Carotid stenosis Doppler Spectral Velocity Analysis ECA (R) 144.50/8.70 cm/s ECA (L) 101.80/9.70 cm/s dICA (R) 76.50/21.90 cm/s dICA (L) 66.10/19.90 cm/s Liliana (R) 86.70/24.10 cm/s Liliana (L) 73.70/18.00 cm/s pICA (R) 105.90/28.90 cm/s pICA (L) 91.70/14.60 cm/s dCCA (R) 72.20/15.00 cm/s dCCA (L) 91.30/18.00 cm/s pCCA (R) 74.30/15.50 cm/s pCCA (L) 80.20/14.40 cm/s Vert (R) 57.20/11.80 cm/s ICA/CCA 1.47 ICA/CCA 1.00 Findings Study suggests 20-49% stenosis of the right internal cartoid artery unchanged from the 03/24/16 study. Study suggests less than 20% stenosis of the left internal cartoid artery unchanged from the 03/24/16 study. Antegrade flow seen bilateral vertebral arteries. Conclusion Study suggests 20-49% stenosis of the right internal cartoid artery unchanged from the 03/24/16 study. Study suggests less than 20% stenosis of the left internal cartoid artery unchanged from the 03/24/16 study. Antegrade flow seen bilateral vertebral arteries. Electronically signed by : Denilson Calle MD 04/08/2020 16:08:01
== END ==
PROVIDERS: PCP Internal Medicine; Visit Provider Internal Medicine
DX: R55 Syncope and collapse (principal)
CPT/HCPCS: 93270; 93880

== ENCOUNTER → 2020-05-25 14:06 | Outpatient (CLI) | payer MEDICARE, OTHER, SELFPAY ==
--- NOTE | 2020-05-25 14:06 | CA_ITS ---
APPROVED REPORT EXAM: Comprehensive 2D, Doppler, and color-flow Echocardiogram Machine Hostler: Shikha Jc RVT Ht: 5 ft 6 in Wt: 142lbs BSA: 1.73 BP: 91/49 mmHg Indications: A-FIB,CABG,AVR 07/16/18-BOVINE,CADMABN EKG,HTN,COPD,CP,HLD,HTN,DM,SEAY 2D Dimensions LVOT 1.59 cm (M/F) 1.5-2.5 M-Mode Dimensions RVDd 2.72 cm (0.9-2.6) LA Diam 4.86 cm (1.9-4.0) LVDd 3.58 cm (3.5-5.7) Ao Diam 2.74 cm (2.0-3.7) LVDs 2.00 cm (3.5-5.7) IVSd 1.14 cm (0.6-1.1) PWd 0.61 cm (0.6-1.1) EF (Teich) 76.40% FS 44.10% EDV (Teich) 53.70 mL ESV (Teich) 12.70 mL LV Diastology E Decel Time 280.00 (160-240 msec) E/A Ratio 0.5 MED E' 5.10 (< 7 cm/sec) E'/MED E' Ratio 12.78 (>14) LAT E' 7.60 (<10 cm/sec) E/LAT E' Ratio 8.58 (>14) Aortic Valve LVOT Max 110.00 (70-110 cm/s) LVOT VTI 19.72 cm AoV Peak Travis. 175.00 (50-130 cm/s) AO Peak GR. 12.20 mmHg AO Mean GR. 7.00 (<5 mmHg) AO VTI 34.28 (18-25 cm) JOHANNA (VTI) 1.14 (2.5-4.5 cm2) Mitral Valve MV E Max Travis. 65.00 (40-130 cm/s) MV A Velocity 124.00 (40-130 cm/s) E/A Ratio 0.52 MV Decel. Time 280.00 (160-240 ms) MV PHT 82.00 ms Pulmonary Valve PV Peak Velocity 94.00 (50-150 cm/s) Left Ventricle Left atrium is mildly enlarged, left ventricle is normal size, mild concentric left ventricular hypertrophy, visually estimated ejection fraction 55% with no regional wall motion abnormality, grade 1 diastolic dysfunction seen without tissue Doppler evidence of raise left atrial pressure. Right Ventricle Right atrium and right ventricle are normal size and contractility. Aortic Valve There is bioprosthetic valve noted in the aortic position, there is no significant aortic outflow obstruction or aortic insufficiency. Mitral Valve Mitral valve has mitral calcification which extends to both anterior posterior mitral leaflet, there is no mitral stenosis, there is mild mitral regurgitation. Tricuspid Valve Tricuspid valve is grossly normal, there is mild tricuspid regurgitation, tricuspid regurgitation jet velocity is inadequate for calculation of the right ventricular systolic pressure. Pulmonic Valve Pulmonic valve is poorly visualized. Great Vessels Aortic root is normal size. Pericardium No significant pericardial effusion noted. Conclusion 1. Mildly enlarged left atrium, normal left ventricular size, mild concentric left ventricular hypertrophy, visually estimated ejection fraction 55% with no regional wall motion abnormality, grade 1 diastolic dysfunction seen without tissue Doppler evidence of raise left atrial pressure. 2. Normal functioning bioprosthetic valve in the aortic position 3. Mild mitral and tricuspid regurgitation. 4. No significant pericardial effusion noted. Electronically signed by : Charlie Haynes, 05/26/2020 06:22:55
== END ==
PROVIDERS: PCP Internal Medicine; Visit Provider Urology
DX: E11.9 Type 2 diabetes mellitus without complications (principal); E78.2 Mixed hyperlipidemia; I20.9 Angina pectoris, unspecified; I45.2 Bifascicular block; J44.9 Chronic obstructive pulmonary disease, unspecified; M79.602 Pain in left arm; R06.09 Other forms of dyspnea; R42 Dizziness and giddiness; R60.9 Edema, unspecified; R94.31 Abnormal electrocardiogram [ECG] [EKG]; Z95.1 Presence of aortocoronary bypass graft; Z79.84 Long term (current) use of oral hypoglycemic drugs
CPT/HCPCS: 93306

== ENCOUNTER 2020-07-29 11:08 | Outpatient (CLI) | payer MEDICARE, OTHER, SELFPAY ==
[2020-07-29 11:12] VITALS: BP 146/68; PULSE 67; RESP 18; TEMP 36.6; O2SAT 98
== END 2020-07-29 11:30 | disposition home or self-care (01) ==
LOC: INF 11:08
PROVIDERS: Visit Provider Internal Medicine
DX: M81.0 Age-related osteoporosis without current pathological fracture (principal)
CPT/HCPCS: 96372; J0897

== ENCOUNTER → 2020-08-08 09:55 | Outpatient (CLI) | payer MEDICARE, OTHER, SELFPAY ==
[2020-08-08 10:53] LABS: Coronavirus 19 IgG Antibody Negative (Negative); Coronavirus 19 IgM Antibody Negative (Negative)
== END ==
PROVIDERS: Visit Provider Ophthalmology
DX: Z01.812 Encounter for preprocedural laboratory examination (principal)
CPT/HCPCS: 36415; 86328

== ENCOUNTER 2020-08-11 06:31 | Day surgery (SDC) | payer MEDICARE, OTHER, SELFPAY ==
[2020-08-04 10:35] VITALS: BMI 21.2
[2020-08-11 06:44] VITALS: BP 144/60; PULSE 65; RESP 18; TEMP 36.5; O2SAT 98
[2020-08-11 07:09] LABS: POC Glucose,Bedside 124 (70-110)
[2020-08-11 08:25] VITALS: BP 145/64; PULSE 62; RESP 16; O2SAT 100
[2020-08-11 08:30] VITALS: BP 142/67; PULSE 57; RESP 16; O2SAT 100
[2020-08-11 08:35] VITALS: BP 137/56; PULSE 56; RESP 16; O2SAT 100
[2020-08-11 08:40] VITALS: BP 138/63; PULSE 55; RESP 16; O2SAT 100
[2020-08-11 08:47] VITALS: BP 120/70; PULSE 60; RESP 16; TEMP 36.5; O2SAT 98
== END 2020-08-11 08:56 | disposition home or self-care (01) ==
LOC: OR 06:32
PROVIDERS: PCP Internal Medicine; Visit Provider Ophthalmology
PROC: (CPT 66984; principal; 2020-08-11 08:00)
DX: H25.811 Combined forms of age-related cataract, right eye (principal); Z96.1 Presence of intraocular lens; H35.3122 Nonexudative age-related macular degeneration, left eye, intermediate dry stage; E11.9 Type 2 diabetes mellitus without complications; I48.91 Unspecified atrial fibrillation; M19.90 Unspecified osteoarthritis, unspecified site; I10 Essential (primary) hypertension; J44.9 Chronic obstructive pulmonary disease, unspecified; I45.2 Bifascicular block; E78.5 Hyperlipidemia, unspecified; Z95.1 Presence of aortocoronary bypass graft; Z79.899 Other long term (current) drug therapy
CPT/HCPCS: 66984; 82962; V2632

== ENCOUNTER 2021-02-25 19:51 | Emergency (ER) | payer MEDICARE, OTHER, SELFPAY ==
--- NOTE | 2021-02-25 20:09 | ECG_ITS ---
APPROVED REPORT Exam: Resting ECG HR:83 bpm ECG Measurements Heart Rate 83 AXES [place] 302 P 48 QRSd 142 QRS -72 QT 394 T 90 QTc 462 Conclusion Sinus rhythm with 1st degree AV block Right bundle branch block Left anterior fascicular block Bifascicular block Left ventricular hypertrophy with repolarization abnormality Abnormal ECG Electronically signed by : Jesus Alfred MD 02/26/2021 17:36:25
[2021-02-25 20:11] VITALS: BP 156/66; PULSE 85; RESP 18; TEMP 39.7; O2SAT 90; BMI 19.8
--- NOTE | 2021-02-25 20:22 | XR_ITS ---
PROCEDURE INFORMATION: Exam: XR Pelvis Exam date and time: 02/25/2021 8:22 PM Age: 75 years old Clinical indication: Pelvic pain; Prior surgery; Surgery date: 6+ months; Surgery type: Prior left hip surgery; Additional info: AMS with multiple falls TECHNIQUE: Imaging protocol: XR pelvis. Views: 1 or 2 view. COMPARISON: CR XR HIP RT 2-3V W/PELVIS 11/20/2019 2:38 PM FINDINGS: Bones/joints: There is irregularity noted within the right inferior pubic ramus. Mild sclerosis is also noted at the base of the right superior pubic ramus extending into the right quadrilateral plate. The possibility of right hemipelvic fracture is considered. Correlation with unenhanced computed tomography of the pelvis would be helpful. There is an intramedullary rashid and nail which transfixes an old healed fracture of the proximal left femur. Soft tissues: There is prominent atheromatous calcification of the iliac and femoral arteries. No overlying soft tissue swelling. IMPRESSION: Proximal fractures of the right pubis. To further evaluate this patient unenhanced computed tomography of the pelvis would be helpful.
--- NOTE | 2021-02-25 20:22 | XR_ITS ---
PROCEDURE INFORMATION: Exam: XR Chest Exam date and time: 02/25/2021 8:22 PM Age: 75 years old Clinical indication: Patient HX: AMS with multiple falls and cough TECHNIQUE: Imaging protocol: XR of the chest. Views: 2 views. COMPARISON: CR XR CHEST PORTABLE 04/18/2019 7:46 AM FINDINGS: Lungs: There are chronic interstitial changes noted within both lung smart. No evidence of alveolar consolidation. Areas of atelectasis or scarring noted at the lung bases. There is no evidence of pulmonary vascular congestion. Pleural spaces: Unremarkable. No pleural effusion. No pneumothorax. Heart/Mediastinum: Unremarkable. No cardiomegaly. Atheromatous calcification of the thoracic aorta is identified. This patient is status post median sternotomy. Bones/joints: There is deformity of the posterolateral aspect of the left 6th rib. This may be related to old fracture and could be as result of prior chest surgery. There are clips identified within the right upper quadrant, compatible with prior cholecystectomy. IMPRESSION: No acute findings. The appearance of the chest is not appreciably changed when compared with prior examination of 04/18/2019.
--- NOTE | 2021-02-25 20:30 | HMH.EDAMS ---
ED Disposition Clinical Impression: Febrile illness, acute, RBBB (right bundle branch block with left anterior fascicular block), H/O aortic valve replacement with porcine valve, Renal insufficiency Disposition: Home, Self-Care Condition on Discharge: Fair Instructions: DI for Altered Mental Status Additional Instructions: use meds and call pcp in am Prescriptions: levoFLOXacin [Levaquin 500mg tab] 500 mg PO DAILY #7 tab Transmission Status: Pending to [facility] Referrals: Sachin Jimenez [Primary Care Provider] - - Critical Care Critical Care Time: No Attestation: On 02/25/21, the high probability of a clinically significant, sudden or life threatening deterioration of the following system(s) required my full and direct attention, intervention and personal management. The time I documented below is in addition to time spent performing reported procedures but includes the following listed in this critical care notation. Medical Decision Making - Medical Records Medical records reviewed: Yes: I reviewed the patient's medical records. - Quintin Inquiry Pt receiving controlled substance: No Vital Signs: 02/25/21 20:11 02/25/21 21:37 Temperature 103.4 F H Temperature Source Rectal Pulse Rate 89 Pulse Rate [Right Brachial] 85 Respiratory Rate 18 18 Blood Pressure 152/62 H Blood Pressure [Right Arm] 156/66 H Blood Pressure Mean [Right Arm] 96 Blood Pressure Source Automatic Cuff Blood Pressure Source [Right Arm] Automatic Cuff Blood Pressure Position Sitting Blood Pressure Position [Right Arm] Sitting 02 Sat by Pulse Oximetry 90 L 96 Oxygen Delivery Method Room Air Nasal Cannula Oxygen Flow Rate (LPM) 2 - Lab Data Lab results reviewed: Yes: I reviewed the patient's lab results. Lab Results 02/25/21 20:38: WBC 8.1, RBC 3.70 L, Hgb 12.1 L, Hct 38.3 L, MCV 103.3 H, MCH 32.6 H, MCHC 31.6 L, RDW 13.7, Plt Count 166, MPV 8.4, Neut % (Auto) 75.7, Lymph % (Auto) 12.2, [place] % (Auto) 11.1 H, Eos % (Auto) 0.2, Baso % (Auto) 0.8, Neut # (Auto) 6.1, Lymph # (Auto) 1.0, [place] # (Auto) 0.9, Eos # (Auto) 0.0, Baso # (Auto) 0.1 02/25/21 20:38: Sodium 138, Potassium 3.7, Chloride 94 L, Carbon Dioxide 34 H, Anion Gap 13.7, BUN 49 H, Creatinine 1.80 H, Estimated Creat Clear 29, Estimated GFR 37 L, Est GFR ( Amer) 45 L, Glucose 180 H, Calcium 8.9, Total Bilirubin 0.8, AST 40, ALT 23, Alkaline Phosphatase 179 H, C-Reactive Protein 24.0 H, Total Protein 7.2, Albumin 4.1, Globulin 3.1, Albumin/Globulin Ratio 1.3 02/25/21 20:38: Lactate 1.7 02/25/21 20:38: ESR 67 H 02/25/21 20:38: Procalcitonin 0.120 02/25/21 22:16: Urine Color Yellow, Urine Appearance Clear, Urine pH 6.0, Ur Specific [place] 1.015, Urine Protein Trace, Urine Glucose (UA) Negative, Urine Ketones Trace, Urine Blood 1+, Urine Nitrate Negative, Urine Bilirubin Negative, Urine Urobilinogen 0.2, Ur Leukocyte Esterase Negative, Urine RBC Occasional, Urine WBC 3-5, Ur Squamous Epith Cells Occasional, Urine Bacteria Trace Result diagrams: 02/25/21 20:38 02/25/21 20:38 Orders (Tests/Meds): ED MEDICATIONS Generic Name Dose Route Start Last Admin Trade Name Freq PRN Reason Stop Dose Admin Sodium Chloride 1,000 mls @ 999 mls/hr 02/25/21 20:30 Sod Chlor 0.9% 1000ml Bag IV 02/25/21 21:30 .[id number] [facility] ORDERS Category Date Time Status Blood Culture Stat Micro 02/25/21 20:38 Received - Radiology Data #1 Image(s): Chest, Pelvis Image Reviewed: Yes I have reviewed radiologist's interpretation Preliminary Findings: Abnormal (see report ) - CT Data CT Scan: Pelvis Time Received: 23:[address] Reviewed: Yes: I have viewed the radiologist's interpretation Preliminary Findings: No Fracture Seen - ECG Data Tracing #1 Normal Sinus Rhythm: Yes Ischemic changes: non-specific ST-T wave changes Conduction abnormalities present: LAFB, RBBB ECG compared to prior tracings: there are no significant changes [facility]
[2021-02-25 21:01] LABS: Basophils # 0.1 K/mm3 (0-0.2); Basophils % 0.8 % (0.1-2.0); Eosinophils % 0.2 % (0.1-12.0); Hematocrit 38.3 % (42.0-52.0); Hemoglobin 12.1 g/dL (14.1-18.0); Lymphocytes % 12.2 % (10-50); Mean Corpuscular HGB Conc 31.6 g/dL (31.8-35.4); Mean Corpuscular Hemoglobin 32.6 pg (27.0-31.2); Mean Corpuscular Volume 103.3 fl (80-94); Mean Platelet Volume 8.4 fl (7.4-10.4); Monocytes # 0.9 K/mm3 (0.1-1.0); Monocytes % 11.1 % (1.7-9.3); Neutrophils # 6.1 K/mm3 (1.8-7.8); Neutrophils % 75.7 % (37.0-80.0); Platelet Count 166 K/mm3 (142-424); Red Cell Distribution Width 13.7 % (11.5-17.5); White Blood Count 8.1 K/mm3 (4.8-10.8)
[2021-02-25 21:04] LABS: Alanine Aminotransferase 23 U/L (12-78); Albumin Level 4.1 g/dl (3.5-5.0); Albumin/Globulin Ratio 1.3 (1.1-1.8); Alkaline Phosphatase 179 U/L (38-126); Anion Gap 13.7 mEq/L (5-15); Aspartate Amino Transferase 40 U/L (17-59); Bilirubin,Total 0.8 mg/dl (0.2-1.3); Blood Urea Nitrogen 49 mg/dl (9-20); Calcium 8.9 mg/dl (8.4-10.2); Carbon Dioxide 34 mmol/L (22.0-30.0); Chloride 94 mmol/L (98-107); Creatinine Clearance Estimated 29 mL/min (50-200); Estimated Glomerular Filt Rate 37 ml/min (>60); GFR (African American) 45 ML/MIN (>60); Globulin 3.1 g/dL (1.3-3.2); Glucose 180 mg/dl (74-100); Potassium 3.7 mmoL/L (3.5-5.1); Sodium 138 mmol/L (136-145); Total Protein,Serum 7.2 g/dl (6.3-8.2)
[2021-02-25 21:25] LABS: Erythrocyte Sedimentation Rate 67 mm/hr (0-20)
[2021-02-25 21:26] LABS: Lactic Acid 1.7 mmol/L (0.7-2.1)
[2021-02-25 21:37] VITALS: BP 152/62; PULSE 89; RESP 18; O2SAT 96
--- NOTE | 2021-02-25 21:56 | CT_ITS ---
PROCEDURE INFORMATION: Exam: CT Pelvis Without Contrast; Skeletal Exam date and time: 02/25/2021 9:56 PM Age: 75 years old Clinical indication: Injury or trauma and abnormal findings; Fall; Abnormal imaging test; Blunt trauma (contusions or hematomas); Right; Pelvic region; Prior surgery; Surgery type: Lt femur; Additional info: Poss FX TECHNIQUE: Imaging protocol: Computed tomography images of the pelvis without contrast. Exam focused on the skeletal structures. 3D rendering (Not supervised by radiologist): MIP and/or 3D reconstructed images were created by the technologist. Radiation optimization: All CT scans at this facility use at least one of these dose optimization techniques: automated exposure control; mA and/or kV adjustment per patient size (includes targeted exams where dose is matched to clinical indication); or iterative reconstruction. COMPARISON: CR XR PELVIS 1-2V 02/25/2021 9:20 PM FINDINGS: Bones/joints: Attention is directed to the right pubis. There is an old healed fracture of the base of the right superior pubic ramus which extends into the quadrilateral plate. There is also an old healed fracture with some deformity of the right inferior pubic ramus. There is a left intramedullary rashid and nail present within the proximal left femur transfixing an old healed intertrochanteric fracture. No evidence of acute fracture on the present examination. Prominent degenerative changes of the lower lumbar spine and sacroiliac joints are evident. Soft tissues: There is a Matute catheter in place. Prominent atheromatous arterial calcification identified. No evidence of soft tissue mass. IMPRESSION: 1. There is an old healed fracture of the intertrochanteric region of the proximal left femur, status post internal metallic reduction. 2. Changes within the right hemipelvis are compatible with old fractures of right superior and inferior pubic rami. 3. No evidence of acute fracture. 4. A Matute catheter is present within the bladder.
[2021-02-25 22:20] LABS: Microscopic, Urine URINE MICROSCOPIC (MICROSCOPIC)
[2021-02-25 22:23] LABS: Appearance,Urine CLEAR (Clear); Bilirubin,Urine Negative (Negative); Blood, Urine 1+ (Negative); Color,Urine YELLOW (Yellow); Glucose,Urine (UA) Negative (Negative); Ketones,Urine TRACE (Negative); Leukocyte Esterase,Urine Negative (Negative); Nitrate,Urine Negative (Negative); Protein,Urine TRACE (Negative); Specific Gravity, Urine 1.015 (1.005-1.030); Urobilinogen,Urine 0.2 EU/dl (0.2)
--- NOTE | 2021-02-25 22:31 | PC.NURSE ---
Patient gone to CT at this time
[2021-02-25 22:33] LABS: RBC,Urine Occasional #/hpf (0-3); Squamous Epithelial Cell,Urine Occasional #/hpf (0-5)
[2021-02-25 22:34] LABS: Bacteria,Urine Trace /lpf
[2021-02-26 00:11] VITALS: BP 124/68; PULSE 82; RESP 18; TEMP 39.1; O2SAT 99
== END 2021-02-26 00:15 | disposition home or self-care (01) ==
PROVIDERS: Emergency Provider Emergency Medicine; PCP Internal Medicine
DX: R50.9 Fever, unspecified (principal); I45.10 Unspecified right bundle-branch block; N28.9 Disorder of kidney and ureter, unspecified; Z86.79 Personal history of other diseases of the circulatory system; Z79.82 Long term (current) use of aspirin; Z79.899 Other long term (current) drug therapy; F41.9 Anxiety disorder, unspecified; J45.909 Unspecified asthma, uncomplicated; J44.9 Chronic obstructive pulmonary disease, unspecified; I25.10 Atherosclerotic heart disease of native coronary artery without angina pectoris; E11.9 Type 2 diabetes mellitus without complications; E78.5 Hyperlipidemia, unspecified
CPT/HCPCS: 71046; 72170; 72192; 80053; 81001; 83605; 84145; 85025; 85651; 86140; 87040; 93005; 99283

== ENCOUNTER → 2021-03-03 10:08 | Outpatient (CLI) | payer MEDICARE, OTHER, SELFPAY ==
--- NOTE | 2021-03-03 10:19 | XR_ITS ---
PROCEDURE: XR CHEST 2V CLINICAL HISTORY: WEAKNESS,DEHYDRATION, S/P MULTIPLE FALLS COMPARISON: CR XR CHEST 2V from 04/02/2019 CR XR CHEST PORTABLE from 04/18/2019 CR XR CHEST 2V from 02/25/2021 FINDINGS: There has been a prior median sternotomy. Normal heart size. No evidence of CHF. There has been a prior aortic valve replacement. Chronic changes are present in both lower lobes in the lung bases There is an old left 6th rib fracture. IMPRESSION: No change. Chronic changes in both lung bases Dictated by: Denilson Calle MD 03/03/2021 11:45 Denilson Calle MD in [place] 03/03/2021 11:45
[2021-03-03 10:28] LABS: Basophils % 0.5 % (0.1-2.0); Eosinophils % 0.6 % (0.1-12.0); Hematocrit 36.5 % (42.0-52.0); Hemoglobin 11.9 g/dL (14.1-18.0); Lymphocytes # 0.6 K/mm3 (0.7-4.5); Lymphocytes % 11.4 % (10-50); Mean Corpuscular HGB Conc 32.7 g/dL (31.8-35.4); Mean Corpuscular Volume 101.1 fl (80-94); Mean Platelet Volume 8.3 fl (7.4-10.4); Monocytes % 17.8 % (1.7-9.3); Neutrophils # 3.9 K/mm3 (1.8-7.8); Neutrophils % 69.7 % (37.0-80.0); Platelet Count 137 K/mm3 (142-424); Red Blood Count 3.61 M/mm3 (4.60-6.20); Red Cell Distribution Width 12.5 % (11.5-17.5); White Blood Count 5.6 K/mm3 (4.8-10.8)
[2021-03-03 10:38] LABS: Anion Gap 8.3 mEq/L (5-15); Blood Urea Nitrogen 35 mg/dl (9-20); Calcium 8.5 mg/dl (8.4-10.2); Carbon Dioxide 35 mmol/L (22.0-30.0); Chloride 98 mmol/L (98-107); Estimated Glomerular Filt Rate 54 ml/min (>60); GFR (African American) 65 ML/MIN (>60); Glucose 182 mg/dl (74-100); Potassium 3.3 mmoL/L (3.5-5.1); Sodium 138 mmol/L (136-145)
== END ==
PROVIDERS: Visit Provider Internal Medicine
DX: E86.0 Dehydration (principal); R53.1 Weakness
CPT/HCPCS: 36415; 71046; 80048; 85025

== ENCOUNTER 2021-03-03 11:18 | Outpatient (CLI) | payer MEDICARE, OTHER, SELFPAY ==
[2021-03-03 11:35] VITALS: BP 95/43; PULSE 77; RESP 18; TEMP 36.4; O2SAT 94
[2021-03-03 14:00] VITALS: BP 113/82; PULSE 78; RESP 18
--- NOTE | 2021-03-03 16:25 | PC.NURSE ---
1625-gave prolia 60mg sq in left upper arm
[2021-03-03 16:40] VITALS: BP 103/50; PULSE 68; RESP 18
== END 2021-03-03 16:40 | disposition home or self-care (01) ==
LOC: INF 11:20
PROVIDERS: PCP Internal Medicine; Visit Provider Internal Medicine
DX: E86.0 Dehydration (principal); R53.1 Weakness; M81.0 Age-related osteoporosis without current pathological fracture
CPT/HCPCS: 36415; 71046; 80048; 85025; 96360; 96361; 96372; J0897

== ENCOUNTER → 2021-03-29 14:52 | Outpatient (CLI) | payer MEDICARE, OTHER, SELFPAY ==
--- NOTE | 2021-03-29 14:57 | XR_ITS ---
PROCEDURE: XR CHEST 2V CLINICAL HISTORY: FALL, SYNCOPE, CHRONIC DIASTOLIC CHF COMPARISON: CR XR CHEST PORTABLE from 04/18/[address] CERVICAL SPINE WO CON from 04/18/2019 CR XR CHEST 2V from 02/25/2021 CR XR CHEST 2V from 03/03/[address] HEAD/BRAIN WO CON from 03/29/2021 FINDINGS: Postoperative changes in the left lung and mediastinum with prior sternotomy. Overall the lungs appear similar to prior studies. Areas of atelectasis or scarring again noted at the lung bases. A suspicious lucency in the cervical spine is noted which was not present on a cervical spine CT from April 18, 2019. Large volume of stool in the colon.. IMPRESSION: 1. Lungs appear overall similar to prior studies. 2. Interval development of suspicious lucency in the cervical spine. CT cervical spine without contrast is recommended for further evaluation. Dictated by: Hortencia Shannon MD 03/29/2021 15:52 Hortencia Shannon MD in [facility] 03/29/2021 15:52
--- NOTE | 2021-03-29 14:58 | CT_ITS ---
PROCEDURE: CT HEAD/BRAIN WO CON CLINICAL INDICATION: FALL, SYNCOPE, CHRONIC DIASTOLIC CHF COMPARISON: CT head April 18, 2019 TECHNIQUE: Axial images obtained. All CT scans at the facility use one or more dose reduction, viz: automated exposure control, ma/kV adjustment per patient size (including targeted exams where dose is matched to indication, i.e. head), or iterative reconstruction technique. FINDINGS: Sinuses are clear. There is no osseous fracture of the visualized structures there is no midline shift. There are no extra-axial fluid collections. There is prominence of the ventricular system with periventricular edema which can be seen in conditions such as normal pressure hydrocephalus. There is no intra or extra-axial hemorrhage. No definite mass lesions are identified. IMPRESSION: 1. No acute intracranial findings. 2. Prominence of the ventricular system and periventricular edema out of proportion to the degree of cerebral volume loss, which can be seen in conditions such as normal pressure hydrocephalus. Dictated by: Hortencia Shannon MD 03/29/2021 15:39 Hortencia Shannon MD in [facility] 03/29/2021 15:39
--- NOTE | 2021-03-29 15:24 | ECG_ITS ---
APPROVED REPORT Exam: Resting ECG HR:67 bpm ECG Measurements Heart Rate 67 AXES LA 266 P 77 QRSd 148 QRS -54 QT 448 T 65 QTc 473 Conclusion Sinus rhythm with 1st degree AV block Right bundle branch block Left anterior fascicular block Bifascicular block Abnormal ECG Electronically signed by : Sachin Jimenez MD 04/06/2021 12:42:59
== END ==
PROVIDERS: PCP Internal Medicine; Visit Provider Internal Medicine
DX: R55 Syncope and collapse (principal); I50.32 Chronic diastolic (congestive) heart failure; W19.XXXA Unspecified fall, initial encounter
CPT/HCPCS: 70450; 71046; 93005

== ENCOUNTER → 2021-04-07 10:33 | Outpatient (CLI) | payer MEDICARE, OTHER, SELFPAY ==
--- NOTE | 2021-04-07 10:36 | CT_ITS ---
PROCEDURE: CT CERVICAL SPINE WO CON CLINICAL INDICATION: BACK PAIN,SUSPICIOUS LUCENCY COMPARISON: CT CT CERVICAL SPINE WO CON from 04/18/2019 TECHNIQUE: Axial images obtained with sagittal and coronal reformats. All CT scans at the facility use one or more dose reduction, viz: automated exposure control, ma/kV adjustment per patient size (including targeted exams where dose is matched to indication, i.e. head), or iterative reconstruction technique. Axial spiral CT scanning performed of the cervical spine beginning at the base of the skull and continuing to the upper T-spine. 3-D multiplanar reconstruction with 3-D manipulation of volumetric data set in image rendering was completed by the radiologist and/or technologist with the supervision of the radiologist on independent workstation. FINDINGS: Normal alignment. No fracture or dislocation. No lytic or blastic change. Mild multilevel degenerative disc disease at C2-C3, C3-C4, C4-C5, C5-C6, and C6-C7. Hypertrophic changes involve the tip the odontoid which abuts the inferior aspect of the clivus. Degenerative changes at the atlantooccipital joint. Facet hypertrophic change at C 3 C4 on the left with left-sided foraminal narrowing Small foraminal disc osteophyte complex on the left at C4-C5 with left lateral recess and foraminal narrowing. Scarring in the lung apices. Nonspecific air density noted within the esophagus. This can be seen with reflux or dysmotility. Upper GI may provide further evaluation. Nuchal ligament calcification at C4-C5 level. Carotid artery calcification IMPRESSION: Cervical spondylosis as detailed above. No obvious lytic or blastic lesions. Dictated by: Denilson Calle MD 04/12/2021 09:19 Denilson Calle MD in [place] 04/12/2021 09:19
== END ==
PROVIDERS: PCP Internal Medicine; Visit Provider Internal Medicine
DX: M54.2 Cervicalgia (principal)
CPT/HCPCS: 72125

== ENCOUNTER → 2021-04-08 10:45 | Outpatient (CLI) | payer MEDICARE, OTHER, SELFPAY ==
[2021-04-08 11:39] LABS: Basophils % 0.4 % (0.1-2.0); Eosinophils # 0.3 K/mm3 (0.0-0.4); Eosinophils % 4.3 % (0.1-12.0); Hematocrit 35.3 % (42.0-52.0); Hemoglobin 10.9 g/dL (14.1-18.0); Lymphocytes # 1.5 K/mm3 (0.7-4.5); Mean Corpuscular HGB Conc 30.9 g/dL (31.8-35.4); Mean Corpuscular Hemoglobin 32.7 pg (27.0-31.2); Mean Corpuscular Volume 105.7 fl (80-94); Monocytes # 0.9 K/mm3 (0.1-1.0); Monocytes % 12.4 % (1.7-9.3); Neutrophils # 4.4 K/mm3 (1.8-7.8); Platelet Count 205 K/mm3 (142-424); Red Blood Count 3.34 M/mm3 (4.60-6.20); Red Cell Distribution Width 14.6 % (11.5-17.5); White Blood Count 7.1 K/mm3 (4.8-10.8)
[2021-04-08 12:39] LABS: Anion Gap 12.6 mEq/L (5-15); Blood Urea Nitrogen 47 mg/dl (9-20); Calcium 8.7 mg/dl (8.4-10.2); Carbon Dioxide 33 mmol/L (22.0-30.0); Chloride 96 mmol/L (98-107); Estimated Glomerular Filt Rate 29 ml/min (>60); GFR (African American) 35 ML/MIN (>60); Glucose 186 mg/dl (74-100); Potassium 4.6 mmoL/L (3.5-5.1); Sodium 137 mmol/L (136-145)
== END ==
PROVIDERS: Visit Provider Internal Medicine Cardiovascular Disease
DX: E78.2 Mixed hyperlipidemia (principal); I10 Essential (primary) hypertension; I25.810 Atherosclerosis of coronary artery bypass graft(s) without angina pectoris; I45.5 Other specified heart block; I49.5 Sick sinus syndrome; Z95.1 Presence of aortocoronary bypass graft; Z95.3 Presence of xenogenic heart valve; Z01.812 Encounter for preprocedural laboratory examination; Z11.52 Encounter for screening for COVID-19
CPT/HCPCS: 36415; 80048; 85025; C9803; U0003; U0005

== ENCOUNTER 2021-04-09 09:00 | Day surgery (SDC) | payer MEDICARE, OTHER, SELFPAY ==
[2021-04-09] VITALS (8 sets, daily range): BP systolic 86–111; BP diastolic 42–65; PULSE 67–95; RESP 16–19; O2SAT 95–98; BMI 20.8
--- NOTE | 2021-04-09 | IR_ITS ---
APPROVED REPORT Patient Location: Outpatient [employer] Guard: CALVIN Townsend RT (R) PROCEDURES 1. Pocket formation for Permanent Pacemaker Placement. 2. Placement of an atrial sensing and pacing coil into the right atrial appendage. 3. Placement of a ventricular sensing and pacing coil in the right ventricular apex. 4. Permanent Pacemaker Placement. INDICATION Symptomatic Bradycardia Informed consent was obtained prior to the procedure. COMPLICATIONS NONE Estimated Blood Loss: LESS THAN 10 ML TECHNIQUE 1% Lidocaine with epinephrine used to anesthetized the left anterior aspect of the chest. Scalpel was used to make the initial cutaneous incision while electrocautery was used to dissect down tinto the fascia. The fascia was lifted off the pectoralis muscle and digitally manipulated creating a pocket for the pacemaker. The patient was then placed in Trendelenburg position and the subclavian vein was accessed twice via the Selinger technique, there are two wires in the vein. A 6 Alban[place] sheath was placed under fluoroscopic guidance into the subclavian vein over one of the wires while keeping the other wire in place within the subclavian vein. The dilator was removed from the sheath. Using fluoroscopic guidance, the ventricular lead was placed into the right ventricular apex, screwed and secured into place. Electronic interrogation proved acceptable thresholds and voltage within the lead. Using 3-0 silk, the ventricular lead was then secured into place. Lead was secured to the facia using the 3-0 silk. Following this, the sheath was pealed away. An additional 6 [place] fresh sheath and dilator was placed over the existing wire. Using fluoroscopic guidance, the atrial lead was the placed into the right atrial appendage and screwed and secured in place. Electrical interrogation demonstrated acceptable thresholds and voltage number. The atrial lead was then secured into place using 3-0 silk. 1 gram of Ancef was used to flush the pocket. Following the pacemaker generator being secured to the fascia and in place, Monocryl was used to close the subcutaneous layers while thaddeus were used to close the cutaneous layer. A pressure dressing was placed and the patient was transferred to the postop holding area in stable condition for postoperative care. INTERROGATION Generator Model number: [employer] DR IS-1 L311 Generator Serial number: [id number] Atrial lead model number: Ingevity + IS-1 Bi Positive Fix RA/RV 7840 Atrial lead serial number: [id number] P-wave: 4.0 mV Impedence: 1.0V@0.4ms Threshold: 450 Ohms Current: 2.3 mA Right Ventricular lead model number: Right Ventricular lead serial number: R-wave: 2.0 mV Impedence: 550 Ohms Threshold: 1.0V@0.4ms Pacing Parameters: Mode: DDDR Base/Max Track: 60 ppm/130 ppm No diaphragmatic stimulation at 10 volts. IMPRESSION 1. Successful Pocket formation for Permanent Pacemaker Placement. 2. Successful Placement of an atrial sensing and pacing coil into the right atrial appendage. 3. Successful Placement of a ventricular sensing and pacing coil in the right ventricular apex. 4. Successful Permanent Pacemaker Placement. PLAN 1. Post Op Wound Care. Electronically signed by : Mac Riley MD 04/12/2021 13:12:47
--- NOTE | 2021-04-09 09:26 | HMH.ANESCL ---
[facility] Anesthesia Checklist - Patient Identification Patient Identification: Arm Band - Structural Data Admitted From: Home Planned Operative Procedure/s: Dual chamber pacemaker Consent for Planned Operative Procedure(s) Verified: Yes - NPO Status Verified Time NPO: 00:00 - Additional verifications Anesthesia Reactions: No Hx Blood Transfusions: No Blood Transfusion Reaction: No - Airway Assessment C-Spine Mobility Assessed: Yes TMJ Mobility Assessed: Yes Dentition: Good Dentition - Neurological Assessment Level of Consciousness: Awake Hx Seizures: No Numbness or tingling in extremities: No - Anesthesia Plan Anesthesia Risk discussed: Yes Anesthesia Plan: Verified ASA Class: III Anesthesia Type: MAC [facility] History I have reviewed the patient's past medical history: Yes Medical History: Reports:: Anxiety, Arrhythmia, Asthma, Atrial Fibrillation, Cancer, Chronic Obstructive Pulmonary Disease (COPD), Coronary Artery Disease, Diabetes Mellitus Type 2, Heart Murmur, Hyperlipidemia, Hypertension, Kidney Stones, Valvular Heart Disease Denies:: Diabetes Mellitus Type 1, Internal Pacemaker, MRSA, Seizures *Have you ever received a pneumonia vaccine?: Yes *Have you received a flu vaccine this season?: Yes Other Medical History: Reports: Arthritis, Cataracts, Chemotherapy, Hoarseness. Denies: Blood Transfusion Reaction Anesthesia experience/problems:: None Laterality Cases: Left: Total Hip Replacement Other Surgeries: Yes: CABG, Cancer Surgery, Cardiac Catheterization, Cardiac Surgery, Cholecystectomy, Colonoscopy, Mitral Valve Replacement, Open Heart Surgery, Other. No: Pacemaker Amputation: No Fractures: No - *Social History Smoking Status: Former smoker Tobacco Type: pipe, cigars Alcohol Intake: never Substance Use Type: denies use *Occupational Status:: retired Housing: house Household Members: spouse *Travel in the last 8 weeks: None - Psychiatric History Pschychiatric History:: Reports:: Anxiety Family Hx:: Cancer, Coronary Artery Disease, Diabetes, Heart Attack, Hyperlipidemia, Hypertension
--- NOTE | 2021-04-09 13:16 | XR_ITS ---
PROCEDURE: XR CHEST PORTABLE CLINICAL HISTORY: Confirm pacemaker/AID placement COMPARISON: CR XR CHEST 2V from 02/25/2021 CR XR CHEST 2V from 03/03/2021 CR XR CHEST 2V from 03/29/2021 FINDINGS: S/p bipolar pacemaker placement from left subclavian approach. No evidence of pneumothorax. Good lead position on the AP image. Chronic changes are present in the left lower lobe. No acute bony abnormalities. IMPRESSION: S/p bipolar pacemaker placement as described above Dictated by: Denilson Calle MD 04/09/2021 14:52 Denilson Calle MD in [place] 04/09/2021 14:52
== END 2021-04-09 15:00 | disposition home or self-care (01) ==
LOC: CATHLAB 09:02
PROVIDERS: PCP Internal Medicine; Visit Provider Internal Medicine
DX: I49.5 Sick sinus syndrome (principal); Z79.899 Other long term (current) drug therapy; I25.810 Atherosclerosis of coronary artery bypass graft(s) without angina pectoris; Z95.1 Presence of aortocoronary bypass graft; I45.5 Other specified heart block; Z95.3 Presence of xenogenic heart valve; E11.9 Type 2 diabetes mellitus without complications; I48.91 Unspecified atrial fibrillation; I10 Essential (primary) hypertension; J44.9 Chronic obstructive pulmonary disease, unspecified
CPT/HCPCS: 33208; 71045; C1785; C1898; J2704

== ENCOUNTER → 2021-04-27 13:56 | Outpatient (CLI) | payer MEDICARE, OTHER, SELFPAY ==
[2021-04-27 15:08] LABS: Alanine Aminotransferase 27 U/L (12-78); Albumin Level 3.7 g/dl (3.5-5.0); Albumin/Globulin Ratio 1.2 (1.1-1.8); Alkaline Phosphatase 148 U/L (38-126); Anion Gap 10.9 mEq/L (5-15); Aspartate Amino Transferase 70 U/L (17-59); Bilirubin,Total 1.2 mg/dl (0.2-1.3); Blood Urea Nitrogen 44 mg/dl (9-20); Calcium 8.1 mg/dl (8.4-10.2); Carbon Dioxide 33 mmol/L (22.0-30.0); Chloride 98 mmol/L (98-107); Chol/HDL Ratio 1.9 (1-3.5); Cholesterol 112 mg/dl (140-200); Estimated Glomerular Filt Rate 46 ml/min (>60); GFR (African American) 55 ML/MIN (>60); Glucose 257 mg/dl (74-100); HDL Cholesterol 59 mg/dl (40-60); Potassium 3.9 mmoL/L (3.5-5.1); Sodium 138 mmol/L (136-145); Total Protein,Serum 6.7 g/dl (6.3-8.2); Triglycerides 68 mg/dl (30-150); VLDL Cholesterol 14 mg/dL (0-40)
[2021-04-27 15:19] LABS: Direct LDL Cholesterol 37.48 mg/dL (100-129)
[2021-04-27 15:35] LABS: Prostate Specific Ag Screen < 0.1 ng/ml (0.0-4.0)
== END ==
PROVIDERS: Visit Provider Internal Medicine
DX: I25.10 Atherosclerotic heart disease of native coronary artery without angina pectoris (principal); I11.0 Hypertensive heart disease with heart failure; I50.32 Chronic diastolic (congestive) heart failure; E11.59 Type 2 diabetes mellitus with other circulatory complications; E78.5 Hyperlipidemia, unspecified; G60.9 Hereditary and idiopathic neuropathy, unspecified; N40.1 Benign prostatic hyperplasia with lower urinary tract symptoms; Z12.5 Encounter for screening for malignant neoplasm of prostate
CPT/HCPCS: 80053; 80061; 83036; G0103

== ENCOUNTER → 2021-05-17 16:06 | Outpatient (CLI) | payer MEDICARE, OTHER, SELFPAY ==
--- NOTE | 2021-05-17 16:10 | XR_ITS ---
PROCEDURE: XR FOOT LT MIN 3V CLINICAL INDICATION: LT 2ND TOE ULCER, INFECTED, R/O OSTEOMYELITIS COMPARISON: CR [id number] XR foot LT min 3V from 10/23/2017 FINDINGS: There is cortical regularity involving the tuft of the distal phalanx of the 2nd digit suspicious for underlying osteomyelitis. Bandage artifact also noted at this level. There is diffuse vascular calcification. IMPRESSION: Cortical irregularity of the tuft of the distal phalanx of the 2nd digit suspicious for osteomyelitis. Dictated by: Denilson Calle MD 05/17/2021 16:50 Denilson Calle MD in [place] 05/17/2021 16:50
== END ==
PROVIDERS: PCP Internal Medicine; Visit Provider Internal Medicine
DX: S91.109A Unspecified open wound of unspecified toe(s) without damage to nail, initial encounter (principal)
CPT/HCPCS: 73630; 87070; 87077; 87186; 87205

== ENCOUNTER → 2021-05-21 09:37 | Outpatient (CLI) | payer MEDICARE, OTHER, SELFPAY ==
--- NOTE | 2021-05-21 | US_ITS ---
APPROVED REPORT Exam Type: Ankle to Brachial Index [facility] Specialists: Florencia Hull CRT Indications Claudication: non healing ulcer on 2nd toe of left foot Risk Factors Hypertension Diabetes Pressures/Indices Right Indices Left Indices Brachial 137.00 mmHg Brachial 129.00 mmHg Low Thigh 0.00 mmHg 0.00 Low Thigh 0.00 mmHg 0.00 Calf 0.00 mmHg 0.00 Calf 0.00 mmHg 0.00 Ankle(PT) 0.00 mmHg 0.00 Ankle(PT) 136.00 mmHg 0.99 Ankle(DP) 0.00 mmHg 0.00 Ankle(DP) 0.00 mmHg 0.00 Digit 61.00 mmHg 0.45 Digit 34.00 mmHg 0.25 Findings R ALMA DELIA NC L ALMA DELIA NC R TBI 0.5 L TBI 0.3 Normal pulses Normal waveforms. Vessels non compressible Conclusion R ALMA DELIA NC L ALMA DELIA NC R TBI 0.5 L TBI 0.3 Low TBI's suggesting small vessel disease Normal pulses Normal waveforms. Vessels non compressible Electronically signed by : Denilson Calle MD 05/21/2021 17:05:26
== END ==
PROVIDERS: PCP Internal Medicine; Visit Provider Podiatrist
DX: I70.263 Atherosclerosis of native arteries of extremities with gangrene, bilateral legs (principal)
CPT/HCPCS: 93923

== ENCOUNTER → 2021-08-03 11:50 | Outpatient (CLI) | payer MEDICARE, OTHER, SELFPAY ==
[2021-08-03 14:10] LABS: Hemoglobin A1C 8.3 % (4.0-6.0)
[2021-08-03 14:24] LABS: Anion Gap 12.4 mEq/L (5-15); Blood Urea Nitrogen 53 mg/dl (9-20); Calcium 9.1 mg/dl (8.4-10.2); Carbon Dioxide 38 mmol/L (22.0-30.0); Chloride 92 mmol/L (98-107); Estimated Glomerular Filt Rate 35 ml/min (>60); GFR (African American) 42 ML/MIN (>60); Glucose 210 mg/dl (74-100); Potassium 4.4 mmoL/L (3.5-5.1); Sodium 138 mmol/L (136-145)
== END ==
PROVIDERS: Visit Provider Internal Medicine
DX: E11.59 Type 2 diabetes mellitus with other circulatory complications (principal); I10 Essential (primary) hypertension; G60.9 Hereditary and idiopathic neuropathy, unspecified
CPT/HCPCS: 80048; 83036

== ENCOUNTER → 2021-11-09 11:16 | Outpatient (CLI) | payer MEDICARE, OTHER, SELFPAY ==
[2021-11-09 13:20] LABS: Basophils % 0.8 % (0.1-2.0); Eosinophils # 0.3 K/mm3 (0.0-0.4); Eosinophils % 5.6 % (0.1-12.0); Hematocrit 33.7 % (42.0-52.0); Hemoglobin 11.1 g/dL (14.1-18.0); Lymphocytes # 1.1 K/mm3 (0.7-4.5); Lymphocytes % 22.6 % (10-50); Mean Corpuscular HGB Conc 33.1 g/dL (31.8-35.4); Mean Corpuscular Hemoglobin 34.5 pg (27.0-31.2); Mean Corpuscular Volume 104.2 fl (80-94); Mean Platelet Volume 10.3 fl (7.4-10.4); Monocytes # 0.6 K/mm3 (0.1-1.0); Monocytes % 13.1 % (1.7-9.3); Neutrophils # 2.8 K/mm3 (1.8-7.8); Platelet Count 173 K/mm3 (142-424); Red Blood Count 3.24 M/mm3 (4.60-6.20); Red Cell Distribution Width 13.7 % (11.5-17.5); Reticulocyte % (Auto) 1.7 % (0.9-3.2); White Blood Count 4.9 K/mm3 (4.8-10.8)
[2021-11-09 13:34] LABS: Alanine Aminotransferase 17 U/L (12-78); Albumin Level 3.6 g/dl (3.5-5.0); Albumin/Globulin Ratio 1.3 (1.1-1.8); Alkaline Phosphatase 171 U/L (38-126); Anion Gap 10.7 mEq/L (5-15); Aspartate Amino Transferase 26 U/L (17-59); Bilirubin,Total 0.9 mg/dl (0.2-1.3); Blood Urea Nitrogen 31 mg/dl (9-20); Calcium 9.2 mg/dl (8.4-10.2); Carbon Dioxide 26 mmol/L (22.0-30.0); Chloride 106 mmol/L (98-107); Chol/HDL Ratio 2.5 (1-3.5); Cholesterol 103 mg/dl (140-200); Estimated Glomerular Filt Rate 42 ml/min (>60); GFR (African American) 51 ML/MIN (>60); Globulin 2.7 g/dL (1.3-3.2); Glucose 136 mg/dl (74-100); HDL Cholesterol 41 mg/dl (40-60); Potassium 4.7 mmoL/L (3.5-5.1); Sodium 138 mmol/L (136-145); Total Protein,Serum 6.3 g/dl (6.3-8.2); Triglycerides 77 mg/dl (30-150); VLDL Cholesterol 15 mg/dL (0-40)
[2021-11-09 13:45] LABS: Direct LDL Cholesterol 38.67 mg/dL (100-129)
[2021-11-09 13:55] LABS: Hemoglobin A1C 7.5 % (4.0-6.0)
[2021-11-09 14:43] LABS: Vitamin B12 726 pg/mL (239-931)
[2021-11-09 14:48] LABS: Folate 8.46 ng/mL
== END ==
PROVIDERS: PCP Internal Medicine; Visit Provider Internal Medicine
DX: I25.10 Atherosclerotic heart disease of native coronary artery without angina pectoris (principal); I11.0 Hypertensive heart disease with heart failure; I50.32 Chronic diastolic (congestive) heart failure; E11.59 Type 2 diabetes mellitus with other circulatory complications; E78.5 Hyperlipidemia, unspecified; N18.30 Chronic kidney disease, stage 3 unspecified
CPT/HCPCS: 80053; 80061; 82607; 82746; 83036; 85025; 85044

== ENCOUNTER 2022-04-30 11:34 | Inpatient (IN) | payer MEDICARE, OTHER, SELFPAY ==
[2022-04-30] VITALS (21 sets, daily range): BP systolic 75–157; BP diastolic 42–75; PULSE 11–116; RESP 17–22; TEMP 36.9–38.9; O2SAT 93–98; BMI 18.9; BMI 18.8; BMI 18.3
--- NOTE | 2022-04-30 11:42 | ECG_ITS ---
APPROVED REPORT Exam: Resting ECG HR:104 bpm ECG Measurements Heart Rate 104 AXES QRSd 142 QRS -81 QT 351 T 87 QTc 412 Conclusion ATRIAL FIBRILLATION WITH RAPID VENTRICULAR RESPONSE LEFT AXIS DEVIATION [QRS AXIS < -30] RIGHT BUNDLE BRANCH BLOCK [120+ ms QRS DURATION, UPRIGHT V1, 40+ ms S IN I/aVL/V4/V5/V6] MODERATE VOLTAGE CRITERIA FOR LVH, CONSIDER NORMAL VARIANT [MEETS CRITERIA IN ONE OF: R(aVL), S(V1), R(V5), R(V5/V6)+S(V1)] ANTEROSEPTAL MYOCARDIAL INFARCTION , PROBABLY RECENT [40+ ms Q WAVE IN V1-V4] ACUTE NV UNCONFIRMED REPORT Electronically signed by : Jesus Alfred MD 05/01/2022 14:59:03
--- NOTE | 2022-04-30 11:42 | CT_ITS ---
PROCEDURE INFORMATION: Exam: CT Head Without Contrast Exam date and time: 04/30/2022 11:50 AM Age: 76 years old Clinical indication: Stroke-like symptoms; Altered mental status/memory loss; Additional info: AMS TECHNIQUE: Imaging protocol: Computed tomography of the head without contrast. Radiation optimization: All CT scans at this facility use at least one of these dose optimization techniques: automated exposure control; mA and/or kV adjustment per patient size (includes targeted exams where dose is matched to clinical indication); or iterative reconstruction. Other technique: STROKE PROTOCOL was implemented. COMPARISON: CT HEAD/BRAIN WO CON 03/29/2021 3:06 PM FINDINGS: Brain: The brain demonstrates diffuse volume loss. There is white matter hypodensity most consistent with chronic small vessel ischemic change. Cerebral ventricles: The ventricles and CSF spaces are proportionately enlarged. Paranasal sinuses: There is mucoperiosteal reaction in the left maxillary sinus. Mastoid air cells: Visualized mastoid air cells are well aerated. Orbital cavities: There are postoperative changes from prior cataract surgery. Vascular: There is atherosclerotic disease involving the vertebral basilar system and cavernous ICAs. Bones/joints: There is no acute fracture. The maxilla is edentulous. Soft tissues: Unremarkable. IMPRESSION: 1. Atrophy and the sequela of prior small vessel ischemia. 2. There is no acute intracranial abnormality. ASSESSMENT: ASPECTS ([facility] Stroke Program Early CT Score) is 10.
--- NOTE | 2022-04-30 11:47 | PC.NURSE ---
pt gone to rad
--- NOTE | 2022-04-30 11:49 | PC.NURSE ---
pt to ct
--- NOTE | 2022-04-30 11:51 | XR_ITS ---
PROCEDURE INFORMATION: Exam: XR Chest Exam date and time: 04/30/2022 12:07 PM Age: 76 years old Clinical indication: Pain; Chest pressure; Additional info: AMS TECHNIQUE: Imaging protocol: Radiologic exam of the chest. Views: 1 view. COMPARISON: CR XR CHEST PORTABLE 04/09/2021 1:31 PM FINDINGS: Tubes, catheters and devices: There is a pacemaker in place from a left-sided approach. Lungs: There is right upper lobe consolidation consistent with pneumonia. Pleural spaces: No pleural effusion. No pneumothorax. Heart/Mediastinum: The heart is mildly enlarged. Bones/joints: There are sternal wires. Otherwise unremarkable for age. IMPRESSION: 1. There is right upper lobe consolidation consistent with pneumonia. 2. Follow-up to document clearing recommended.
[2022-04-30 12:06] LABS: Chloride 104 mmol/L (98-107)
[2022-04-30 12:07] LABS: Potassium 4.4 mmoL/L (3.5-5.1); Sodium 137 mmol/L (136-145)
[2022-04-30 12:09] LABS: Alanine Aminotransferase 41 U/L (12-78); Albumin Level 4.4 g/dl (3.5-5.0); Albumin/Globulin Ratio 1.4 (1.1-1.8); Alkaline Phosphatase 232 U/L (38-126); Anion Gap 13.4 mEq/L (5-15); Aspartate Amino Transferase 48 U/L (17-59); Bilirubin,Total 1.8 mg/dl (0.2-1.3); Blood Urea Nitrogen 40 mg/dl (9-20); Carbon Dioxide 24 mmol/L (22.0-30.0); Creatinine Clearance Estimated 32 mL/min (50-200); Estimated Glomerular Filt Rate 42 ml/min (>60); GFR (African American) 51 ML/MIN (>60); Globulin 3.2 g/dL (1.3-3.2); Total Protein,Serum 7.6 g/dl (6.3-8.2)
[2022-04-30 12:10] LABS: Calcium 9.9 mg/dl (8.4-10.2); Glucose 198 mg/dl (74-100)
--- NOTE | 2022-04-30 12:12 | PC.NURSE ---
LUKAS SANDOVAL spoke with Jessica at this time
--- NOTE | 2022-04-30 12:14 | HMH.EDGENADL ---
Discharge Plan Disposition Patient Disposition: Admitted As Inpatient Condition: Fair Prescriptions Prescriptions: No Action gabapentin 300 mg capsule 600 mg PO BID furosemide [Lasix] 40 mg tablet 40 mg PO DAILY PRN (Reason: swelling) Rx Instructions: PT STATES NEEDED WHEN LEGS ARE SWELLING aspirin [Adult Low Dose Aspirin] 81 mg tablet,delayed release (DR/EC) 81 mg PO DAILY atorvastatin 40 MG tablet 40 mg PO HS albuterol sulfate 18 GM HFA aerosol inhaler 2 puffs INHALATION Q4-6H PRN (Reason: copd) Label Comments: inhale 2 puffs BY MOUTH EVERY 4 TO 6 HOURS NEEDED FOR wheezing --SHAKE WELL BEFORE USE-- oxycodone 15 mg tablet 15 mg PO Q6HP 7 Days Qty: 28 0RF thiamine mononitrate (vit B1) 100 MG tablet 100 mg PO DAILY Referrals Follow up/Referrals: Sachin Jimenez MD [Primary Care Provider] - See instructions Clinical Impressions Clinical Impression: Community acquired pneumonia, Sepsis, AMS (altered mental status) Discharge ED Provider: Gumaro Albrecht General Adult HPI General Stated complaint: Altered Mental Status Time Seen by Provider: 04/30/22 11:55 History of Present Illness HPI narrative: History obtained from patient's and son. states that the patient woke up this morning and told her that his fingers hurt, which she does chronically. He went back to bed and slept, which was unusual for him. When she tried to wake him up he was not responding appropriately. He would moan, but would not speak. He poorly followed commands. states that he has done this once before couple of years ago when he had pneumonia. She says he has not recently been ill with any symptoms. No cough, fever, vomiting, diarrhea, urinary symptoms, chest pain, shortness of breath. The patient will answer minimal questions here such as his name and will follow some commands. He is not able to give further information himself. Related Data Home Medications Medication Instructions Recorded Confirmed aspirin 81 mg tablet,delayed 81 mg PO DAILY HEART HEALTH 09/04/18 01/21/22 release (Adult Low Dose Aspirin) albuterol sulfate 90 mcg/actuation 2 puffs inhalation Q4-6H PRN copd 04/18/19 01/21/22 aerosol inhaler atorvastatin 40 mg tablet 40 mg PO HS Cholesterol 04/18/19 01/21/22 furosemide 40 mg tablet (Lasix) 40 mg PO DAILY PRN swelling 05/20/20 01/21/22 thiamine mononitrate (vit B1) 100 100 mg PO DAILY Supplement 08/04/20 01/21/22 mg tablet gabapentin 300 mg capsule 600 mg PO BID Pain 04/08/21 01/21/22 Previous Rx's Medication Instructions Recorded oxycodone 15 mg tablet 15 mg PO Q6HP Pain 7 days #28 tabs 04/20/19 Allergies Allergy/AdvReac Type Severity Reaction Status Date / Time latex AdvReac Mild Rash Verified 01/21/22 10:01 [facility] Medical History (Updated 04/30/22 @ 13:04 by Gumaro Albrecht MD) Abnormal EKG Abnormal Holter monitor finding Angina, class IV Cardiac pacemaker in situ COPD (chronic obstructive pulmonary disease) Left arm pain Social History Smoking Status: Former smoker second hand exposure: No alcohol intake: never substance use type: denies use current occupational status: retired Travel in the last 8 weeks: Inside the [place] household members: spouse housing: house current occupational exposures/hazards: No caffeine: Yes ROS Obtained: Yes unobtainable due to mental status Obtained from Constitutional Constitutional: Reports daytime sleepiness, Denies fever(s) and Denies headache(s) ENT Ears, Nose, Mouth, and Throat: Denies headache(s), Denies nasal discharge and Denies sore throat Cardiovascular Cardiovascular: Denies chest pain Respiratory Respiratory: Denies shortness of breath and Denies cough Gastrointestinal Gastrointestingal: Denies abdominal pain, constipation, diarrhea or vomiting Genitourinary Male Genitourinary: Denies difficulty urinating and Denies fla
[2022-04-30 12:22] LABS: Basophils % 0.2 % (0.1-2.0); Eosinophils % 0.3 % (0.1-12.0); Hemoglobin 11.6 g/dL (14.1-18.0); Lymphocytes # 0.8 K/mm3 (0.7-4.5); Lymphocytes % 5.4 % (10-50); Mean Corpuscular HGB Conc 31.2 g/dL (31.8-35.4); Mean Corpuscular Volume 105.7 fl (80-94); Mean Platelet Volume 7.9 fl (7.4-10.4); Monocytes # 1.6 K/mm3 (0.1-1.0); Monocytes % 10.8 % (1.7-9.3); Neutrophils # 12.1 K/mm3 (1.8-7.8); Neutrophils % 83.3 % (37.0-80.0); Platelet Count 145 K/mm3 (142-424); Red Cell Distribution Width 12.8 % (11.5-17.5); White Blood Count 14.5 K/mm3 (4.8-10.8)
[2022-04-30 12:44] LABS: Troponin I < 0.01 ng/ml (0.00-0.034)
--- NOTE | 2022-04-30 13:01 | PC.NURSE ---
ER MD at updated pt and family on POC and results
[2022-04-30 13:13] LABS: Coronavirus 19, PCR Not Detected (NotDetected); Influenza A, PCR Not Detected (NotDetected); Influenza B, PCR Not Detected (NotDetected)
--- NOTE | 2022-04-30 13:22 | PC.NURSE ---
electrician apprentice powerhouse notified of admission
[2022-04-30 13:27] LABS: Lactic Acid 1.8 mmol/L (0.7-2.1)
--- NOTE | 2022-04-30 13:29 | PC.NURSE ---
Bed assisgnment to room 214 at this time
--- NOTE | 2022-04-30 13:40 | HMH.PHAINT1 ---
Pharmacy Intervention Comments: MEDICATION RECONCILIATION COMPLETED ON PATIENT USING EXTERNAL FILL HISTORY FROM PHARMACY. -АННА MODI, LORAD
--- NOTE | 2022-04-30 13:40 | PC.NURSE ---
dr. prater (hospitalist) at BS
--- NOTE | 2022-04-30 13:52 | EXP.HP ---
History of Present Illness *Admission Date: 04/30/22 *Reason for visit:: Encephalopathy *History of present illness: Patient is 76-year-old male who presents emergency department by his due to altered mental status that was discovered this morning upon awakening. Patient is unable to provide history due to encephalopathy, so history is obtained by his . She states that when they woke up this morning he was confused and unable to respond. He has 1 episode like this in the past when he was diagnosed with a pneumonia. Currently he is doing much better and has improved with treatment received in the emergency department. Patient denies having any shortness of breath or cough or fevers and chills he does endorse chest pain to the center of his chest [facility] Medical History Abnormal EKG Abnormal Holter monitor finding Angina, class IV Cardiac pacemaker in situ COPD (chronic obstructive pulmonary disease) Left arm pain Social History Smoking Status: Unknown if ever smoked second hand exposure: No alcohol intake: never substance use type: denies use current occupational status: retired Travel in the last 8 weeks: [place] the [place] household members: spouse housing: house current occupational exposures/hazards: No caffeine: Yes Review of Systems Review of Systems Review of systems:: unable to obtain Constitutional Constitutional: Reports chills, Reports fatigue, Reports fever(s), Denies headache(s) and Denies weakness ENT Ears, Nose, Mouth, and Throat: Denies headache(s) *Musculoskeletal Musculoskeletal: Denies numbness *Neurologic Neurologic: Reports behavioral changes, Reports confusion, Denies headache(s), Denies numbness and Denies weakness Psychiatric Psychiatric: Reports behavioral changes and Reports confusion Endocrine Endocrine: Reports fatigue Meds Home Medications and Allergies Home Medications Medication Instructions Recorded Confirmed Type aspirin 81 mg tablet,delayed 81 mg PO DAILY HEART HEALTH 09/04/18 04/30/22 History release (Adult Low Dose Aspirin) atorvastatin 40 mg tablet 40 mg PO HS Cholesterol 04/18/19 04/30/22 History oxycodone 15 mg tablet 15 mg PO Q6HP Pain 7 days #28 tabs 04/20/19 04/30/22 Rx thiamine mononitrate (vit B1) 100 100 mg PO DAILY Supplement 08/04/20 04/30/22 History mg tablet New Prescriptions to Start Prescriptions: Allergies Allergy/AdvReac Type Severity Reaction Status Date / Time latex AdvReac Mild Rash Verified 01/21/22 10:01 Exam Data for Last 24 hours Vital signs and Labs for Last 24 Hours: Temp Pulse Resp BP Pulse Ox 102.1 F H 101 H 20 135/56 L 96 04/30/22 13:01 04/30/22 12:09 04/30/22 12:09 04/30/22 12:09 04/30/22 12:09 Laboratory Results - last 24 hr 04/30/22 11:46: WBC 14.5 H, RBC 3.50 L, Hgb 11.6 L, Hct 37.0 L, MCV 105.7 H, MCH 33.0 H, MCHC 31.2 L, RDW 12.8, Plt Count 145, MPV 7.9, Neut % (Auto) 83.3 H, Lymph % (Auto) 5.4 L, [place] % (Auto) 10.8 H, Eos % (Auto) 0.3, Baso % (Auto) 0.2, Neut # (Auto) 12.1 H, Lymph # (Auto) 0.8, [place] # (Auto) 1.6 H, Eos # (Auto) 0.0, Baso # (Auto) 0.0 04/30/22 11:46: Sodium 137, Potassium 4.4, Chloride 104, Carbon Dioxide 24, Anion Gap 13.4, BUN 40 H, Creatinine 1.60 H, Estimated Creat Clear 32, Estimated GFR 42 L, Est GFR ( Amer) 51 L, Glucose 198 H, Calcium 9.9, Total Bilirubin 1.8 H, AST 48, ALT 41, Alkaline Phosphatase 232 H, Total Protein 7.6, Albumin 4.4, Globulin 3.2, Albumin/Globulin Ratio 1.4 04/30/22 11:46: Troponin I < 0.01 04/30/22 12:58: Lactate 1.8 04/30/22 13:03: SARS-CoV-2 (PCR) Not detected, Influenza A Untype (PCR) Not detected, Influenza Type B (PCR) Not detected I & O for Last 24 hours: Intake & Output 04/27/22 04/28/22 04/29/22 04/30/22 23:59 23:59 23:59 23:59 Weight 58.06 kg Constitutional Constitutional: no acute distr
--- NOTE | 2022-04-30 13:52 | PC.NURSE ---
dr. prater (hospitalist) at , notified him of bp trending low x3 readings, current bp 90/46 States to give pt sepsis IVF bolus of 30ml/kg Normal saline Current bag of IVF that was infusing at 100ml/hr I opened up to wide open rate. Will continue to monitor bp. Notified ER also
--- NOTE | 2022-04-30 14:01 | ECG_ITS ---
APPROVED REPORT Exam: Resting ECG HR:108 bpm ECG Measurements Heart Rate 108 AXES ND 198 P -35 QRSd 141 QRS -75 QT 325 T 91 QTc 388 Conclusion SINUS TACHYCARDIA RIGHT BUNDLE BRANCH BLOCK [120+ ms QRS DURATION, UPRIGHT V1, 40+ ms S IN I/aVL/V4/V5/V6] LEFT ANTERIOR FASCICULAR BLOCK [QRS AXIS <= -45, QR IN I, RS IN II] ANTEROSEPTAL MYOCARDIAL INFARCTION , PROBABLY RECENT [40+ ms Q WAVE IN V1-V4] ACUTE LA UNCONFIRMED REPORT Electronically signed by : Jesus Alfred MD 05/02/2022 21:12:51
--- NOTE | 2022-04-30 14:12 | HMH.ITSTN ---
I called Dr. Riley to confirm US abd does he want that done Monday or today. He said its fine for Monday and don't call US Tech in
--- NOTE | 2022-04-30 14:21 | PC.NURSE ---
report called to Patricia Pritchett RN on second floor at this time, states will send staff down to transport pt
--- NOTE | 2022-04-30 14:43 | PC.NURSE ---
notified libby curtis that I have started pt second liter of IVF for sepsis bolus
[2022-04-30 16:00] LABS: Troponin I 0.03 ng/ml (0.00-0.034)
[2022-04-30 17:14] LABS: POC Glucose,Bedside 230 (70-110)
--- NOTE | 2022-04-30 18:03 | ECG_ITS ---
APPROVED REPORT Exam: Resting ECG HR:87 bpm ECG Measurements Heart Rate 87 AXES QRSd 157 QRS -88 QT 413 T 5 QTc 457 Conclusion ELECTRONIC VENTRICULAR PACEMAKER ABNORMAL RHYTHM ECG UNCONFIRMED REPORT Electronically signed by : Jesus Alfred MD 05/01/2022 14:55:46
--- NOTE | 2022-04-30 18:06 | PC.NURSE ---
PATIENT A/O X 4. HATES NEEDLES. TOOK MUCH ENCOURAGEMENT TO TAKE INSULIN AND LOVENOX. ALSO 2ND IV PLACED WITH MUCH ENCOURAGEMENT. VERY WEAK. CAN WALK WITH 1 ASSIST. CURRENTLY RECIEVING 2ND BOLUS PER HOSPITALIST SINCE ARRIVING TO THE FLOOR. BPs RUNNING LOW BUT IMPROVING .
--- NOTE | 2022-04-30 19:40 | PC.NURSE ---
AFTER 3RD BOLUS PT'S MANUAL BP WAS 84/48. NOTIFIED HOSPITALIST AND HE ORDERED FOR PT TO BE MOVED TO STEP DOWN AND BE STARTED ON A LEVOPHED DRIP. PT REFUSED 3RD TROPONIN AND GUERRERO CATHETER. PT VOIDED AND HAD A NORMAL BM IN THE TOILET SOON HE ARRIVED TO FLOOR.
[2022-04-30 21:10] LABS: POC Glucose,Bedside 121 (70-110)
[2022-05-01] VITALS (14 sets, daily range): BP systolic 99–126; BP diastolic 49–62; PULSE 67–100; RESP 16–20; TEMP 37–37.7; O2SAT 90–99; BMI 18.8
[2022-05-01 06:15] LABS: POC Glucose,Bedside 131 (70-110)
[2022-05-01 06:46] LABS: Microscopic, Urine URINE MICROSCOPIC (MICROSCOPIC)
[2022-05-01 07:23] LABS: Appearance,Urine CLEAR (Clear); Bilirubin,Urine Negative (Negative); Blood, Urine Negative (Negative); Color,Urine YELLOW (Yellow); Glucose,Urine (UA) Negative (Negative); Ketones,Urine TRACE (Negative); Leukocyte Esterase,Urine Negative (Negative); Nitrate,Urine Negative (Negative); PH,Urine 5.5 (5.0-8.5); Protein,Urine Negative (Negative); Specific Gravity, Urine 1.025 (1.005-1.030); Urobilinogen,Urine 0.2 EU/dl (0.2)
--- NOTE | 2022-05-01 07:27 | PC.NURSE ---
Pt is up to chair. Has not c/o any discomfort this shift. Levophed gtt was placed on standby at 0338. Urine specimen obtained. Call light within reach. Levophed titration 8 mcg/min at start of shift 1914 - 4 mcg/min 193 - 2 0030 - 1 0218 - 0.5 0338 - standby
[2022-05-01 07:37] LABS: Amorphous Sediment,Urine 1+ /lpf; Bacteria,Urine 1+ /lpf; Fine Granular Casts,Urine Occasional #/lpf (0); RBC,Urine Occasional #/hpf (0-3)
[2022-05-01 09:22] LABS: INR 1.21 (0.9-1.1); Prothrombin Time 12.9 seconds (10.1-12.5)
[2022-05-01 09:25] LABS: Alanine Aminotransferase 39 U/L (12-78); Albumin Level 3.1 g/dl (3.5-5.0); Albumin/Globulin Ratio 1.1 (1.1-1.8); Alkaline Phosphatase 170 U/L (38-126); Anion Gap 18.9 mEq/L (5-15); Aspartate Amino Transferase 47 U/L (17-59); Bilirubin,Total 1.4 mg/dl (0.2-1.3); Blood Urea Nitrogen 35 mg/dl (9-20); Calcium 8.5 mg/dl (8.4-10.2); Carbon Dioxide 22 mmol/L (22.0-30.0); Chloride 104 mmol/L (98-107); Creatinine Clearance Estimated 37 mL/min (50-200); Estimated Glomerular Filt Rate 54 ml/min (>60); GFR (African American) 65 ML/MIN (>60); Globulin 2.8 g/dL (1.3-3.2); Glucose 135 mg/dl (74-100); Magnesium 1.5 mg/dl (1.6-2.3); Phosphorous 2.7 mg/dl (2.5-4.5); Potassium 3.9 mmoL/L (3.5-5.1); Sodium 141 mmol/L (136-145); Total Protein,Serum 5.9 g/dl (6.3-8.2)
[2022-05-01 10:45] LABS: Basophils % 0.1 % (0.1-2.0); Eosinophils % 0.1 % (0.1-12.0); Hematocrit 30.9 % (42.0-52.0); Lymphocytes # 1.2 K/mm3 (0.7-4.5); Lymphocytes % 6.8 % (10-50); Mean Corpuscular HGB Conc 32.6 g/dL (31.8-35.4); Mean Corpuscular Volume 104.2 fl (80-94); Mean Platelet Volume 10.4 fl (7.4-10.4); Monocytes % 11.2 % (1.7-9.3); Neutrophils # 14.7 K/mm3 (1.8-7.8); Neutrophils % 81.7 % (37.0-80.0); Platelet Count 132 K/mm3 (142-424); Red Blood Count 2.97 M/mm3 (4.60-6.20); Red Cell Distribution Width 13.6 % (11.5-17.5)
[2022-05-01 10:48] LABS: MANUAL DIFFERENTIAL MANUAL DIFFERENTIAL (MANUAL DIFF)
[2022-05-01 10:53] LABS: Hemoglobin 10.1 g/dL (14.1-18.0)
--- NOTE | 2022-05-01 10:55 | HMH.PHAINT1 ---
Pharmacy Intervention Comments: MEDICATION RECONCILIATION COMPLETED ON PATIENT USING EXTERNAL FILL HISTORY FROM PHARMACY AND DEBBIE REPORT. -АННА MODI, LORAD
--- NOTE | 2022-05-01 11:07 | EXP.ACUTE.PN ---
Subjective *Date: 05/01/22 *Time: 11:07 Interval history: Much more alert today. Decreased off of his Levophed yesterday night. Feels better, wants to go home. Answered all questions Medical Exam Vital signs and Labs for Last 24 Hours: Vital Signs Temp Pulse Pulse Resp BP BP BP 05/01/22 07:00 82 20 104/54 L 05/01/22 06:00 69 17 104/52 L 05/01/22 05:00 72 18 108/52 L 05/01/22 04:00 99.2 F 69 18 104/54 L 05/01/22 03:00 75 16 105/50 L 05/01/22 04:00 70 05/01/22 04:00 05/01/22 00:00 80 04/30/22 20:00 110 H 05/01/22 02:00 86 17 126/58 L 05/01/22 01:00 83 20 115/51 L 05/01/22 00:00 99.5 F 79 18 116/50 L 04/30/22 23:00 99 H 20 90/51 L 04/30/22 22:00 109 H 17 118/56 L 04/30/22 21:00 108 H 18 113/51 L 04/30/22 20:00 98.5 F 107 H 19 119/54 L 04/30/22 19:30 111 H 20 124/58 L 04/30/22 19:03 103 H 20 115/45 L 04/30/22 20:00 04/30/22 14:45 04/30/22 17:06 93/51 L 04/30/22 16:00 100 H 04/30/22 16:42 91/42 L 04/30/22 16:00 98.8 F 103 H 18 75/43 L 04/30/22 14:59 98.5 F 107 H 22 85/51 L 04/30/22 14:45 102.1 F H 105 H 18 100/51 L 04/30/22 14:30 105 H 18 100/51 L 04/30/22 14:00 108 H 20 93/52 L 04/30/22 13:48 111 H 20 90/46 L 04/30/22 13:43 115 H 20 94/50 L 04/30/22 13:28 11 L 22 94/47 L 04/30/22 13:00 114 H 20 100/48 L 04/30/22 12:30 116 H 20 118/48 L 04/30/22 11:35 99.1 F 87 18 157/75 H 04/30/22 13:01 102.1 F H 04/30/22 12:09 101 H 20 135/56 L Pulse Ox 05/01/22 07:00 97 05/01/22 06:00 96 05/01/22 05:00 98 05/01/22 04:00 99 05/01/22 03:00 97 05/01/22 04:00 05/01/22 04:00 99 05/01/22 00:00 04/30/22 20:00 05/01/22 02:00 95 05/01/22 01:00 94 L 05/01/22 00:00 95 04/30/22 23:00 94 L 04/30/22 22:00 93 L 04/30/22 21:00 94 L 04/30/22 20:00 93 L 04/30/22 19:30 95 04/30/22 19:03 97 04/30/22 20:00 93 L 04/30/22 14:45 98 04/30/22 17:06 04/30/22 16:00 04/30/22 16:42 04/30/22 16:00 98 04/30/22 14:59 96 04/30/22 14:45 04/30/22 14:30 97 04/30/22 14:00 95 04/30/22 13:48 94 L 04/30/22 13:43 94 L 04/30/22 13:28 95 04/30/22 13:00 97 04/30/22 12:30 95 04/30/22 11:35 93 L 04/30/22 13:01 04/30/22 12:09 96 Intake and Output 04/30/22 05/01/22 05/01/22 23:59 07:59 15:59 Intake Total 2043 1054 / 1294 240 / 1294 Output Total 200 / 550 650 / 650 Balance 1844 / 2494 404 / 644 240 / 644 Intake: Intake, Oral Amount 240 / 240 Intake, Total IV Amount 2043 1054 / 1054 0.9 % Sodium Chloride 1,000 ml 2043 1031 / 1031 @ 999 mls/hr IV .Q1H1M ONE Rx#: [id number] Norepinephrine Bitartrate 8 mg / In Dextrose 5 % in Water 250 ml @ 2 MCG/MIN 3.87 mls/hr IV . Q24H [facility] Rx#:[id number] Output: Output, Urine Amount 200 / 550 650 / 650 Other: Number of Unmeasured Voids 1 Weight 54.613 kg Patient Weight 05/01/22 23:59 Weight 54.613 kg Laboratory Results - last 24 hr 04/30/22 06:32: Urine Color Yellow, Urine Appearance Clear, Urine pH 5.5, Ur Specific [place] 1.025, Urine Protein Negative, Urine Glucose (UA) Negative, Urine Ketones Trace, Urine Blood Negative, Urine Nitrate Negative, Urine Bilirubin Negative, Urine Urobilinogen 0.2, Ur Leukocyte Esterase Negative, Urine RBC Occasional, Urine WBC 3-5, Ur Squamous Epith Cells 3-5, Amorphous Sediment 1+, Urine Bacteria 1+, Fine Granular Casts Occasional 04/30/22 11:46: WBC 14.5 H, RBC 3.50 L, Hgb 11.6 L, Hct 37.0 L, MCV 105.7 H, MCH 33.0 H, MCHC 31.2 L, RDW 12.8, Plt Count 145, MPV 7.9, Neut % (Auto) 83.3 H, Lymph % (Auto) 5.4 L, [place] % (Auto) 10.8 H, Eos % (Auto) 0.3, Baso % (Auto) 0.2, Neut # (Auto) 12.1 H, Lymph # (Auto) 0.8, [place] # (Auto) 1.6 H, Eos # (Aut
[2022-05-01 11:17] LABS: POC Glucose,Bedside 220 (70-110)
[2022-05-01 11:19] LABS: Lymphocytes % 6 % (10-50); Monocytes % 3 % (2-9); Neutrophils % 84 % (42-76); Total Cells Counted 100
[2022-05-01 11:20] LABS: Platelet Estimate Slight Decrease
[2022-05-01 11:21] LABS: Burr Cells 1+
[2022-05-01 11:33] LABS: Hemoglobin A1C 6.8 % (4.0-6.0)
[2022-05-01 16:13] LABS: POC Glucose,Bedside 186 (70-110)
[2022-05-01 21:26] LABS: POC Glucose,Bedside 121 (70-110)
[2022-05-02] VITALS (11 sets, daily range): BP systolic 101–143; BP diastolic 49–67; PULSE 70–88; RESP 18–22; TEMP 36.7–37.2; O2SAT 94–98; BMI 20.2
[2022-05-02 05:52] LABS: POC Glucose,Bedside 115 (70-110)
--- NOTE | 2022-05-02 06:27 | PC.NURSE ---
No acute changes this shift. Pt has had some wheezing noted to lung smart. Shanell BAGGAGE AGENT SUPERVISOR notified. New orders received. Pt has had some discomfort to stomach. VSS. Remains on RA. Has used urinal. New IV placed in RFA #22. Call light within reach.
[2022-05-02 07:15] LABS: Basophils % 0.1 % (0.1-2.0); Eosinophils # 0.1 K/mm3 (0.0-0.4); Eosinophils % 0.9 % (0.1-12.0); Hematocrit 31.3 % (42.0-52.0); Lymphocytes # 1.3 K/mm3 (0.7-4.5); Lymphocytes % 9.1 % (10-50); Mean Corpuscular HGB Conc 32.1 g/dL (31.8-35.4); Mean Corpuscular Hemoglobin 33.2 pg (27.0-31.2); Mean Corpuscular Volume 103.5 fl (80-94); Monocytes # 1.6 K/mm3 (0.1-1.0); Monocytes % 11.5 % (1.7-9.3); Neutrophils # 10.7 K/mm3 (1.8-7.8); Neutrophils % 78.3 % (37.0-80.0); Platelet Count 117 K/mm3 (142-424); Red Blood Count 3.02 M/mm3 (4.60-6.20); Red Cell Distribution Width 13.5 % (11.5-17.5); White Blood Count 13.6 K/mm3 (4.8-10.8)
[2022-05-02 07:24] LABS: Alanine Aminotransferase 31 U/L (12-78); Albumin/Globulin Ratio 1.1 (1.1-1.8); Alkaline Phosphatase 158 U/L (38-126); Anion Gap 17.8 mEq/L (5-15); Aspartate Amino Transferase 36 U/L (17-59); Bilirubin,Total 0.7 mg/dl (0.2-1.3); Blood Urea Nitrogen 30 mg/dl (9-20); Calcium 8.5 mg/dl (8.4-10.2); Carbon Dioxide 21 mmol/L (22.0-30.0); Chloride 104 mmol/L (98-107); Creatinine Clearance Estimated 39 mL/min (50-200); Estimated Glomerular Filt Rate 54 ml/min (>60); GFR (African American) 65 ML/MIN (>60); Globulin 2.8 g/dL (1.3-3.2); Glucose 107 mg/dl (74-100); Magnesium 1.6 mg/dl (1.6-2.3); Phosphorous 2.4 mg/dl (2.5-4.5); Potassium 3.8 mmoL/L (3.5-5.1); Sodium 139 mmol/L (136-145); Total Protein,Serum 5.8 g/dl (6.3-8.2)
--- NOTE | 2022-05-02 08:54 | HMH.PTEV ---
Physical Therapy Evaluation Rehab PT IP Evaluation Start: 05/02/22 08:16 Freq: ONCE Status: Active Protocol: Document 05/02/22 08:51 JING (Rec: 05/02/22 08:53 [email or web address] [id number]) Subjective/History History History 76 yowm adm to [facility] with PNA, feeling much better this am. He reports he lives with , no steps, uses a cane for ambulation, and is generally independent with all mobility. Subjective Subjective No c/o this am. Rehab PT IP Eval Objective Appearance Patient Behavior Appropriate Patient Orientation Person,Place,Time Difficulty following instructions none Speech Pattern Clear Ambulation Patient Able to Ambulate Yes Ambulation Observation IP General Gait Pattern Observation No Deviations/Normal Ambulation Distance (feet) 100 Ambulation Assistive Device None Ambulation Ability Supervision/Stand by Balance Ability to Arise Able, uses arms to help Sitting Balance Steady, safe Standing Balance Narrow stance w/o support Dynamic Sitting Balance Ability Good Dynamic Standing Balance Ability Good Transfers Bed Transfer Ability Supervision/Stand by Chair Transfer Ability Supervision/Stand by Sit to Stand Bed Transfer Ability Supervision/Stand by Sit to Stand Chair Transfer Ability Supervision/Stand by ROM All Extremities PT ROM Status WFL Rehab PT IP prob,goals,plan Problems Date of Evaluation: 05/02/22 Discharge Plan PT Discharge Plan Pt is appropriate to return home once medically stable, no current inpatient therapy needs. G -code Required No Eval Complexity Eval Charge Codes 54477 - Moderate Complexity PHYSICIAN CERTIFICATION: I certify the specified therapy services for Jose Burger are required, authorized, and reviewed every 30 days.
--- NOTE | 2022-05-02 10:10 | HMH.OTEV ---
OT Inpatient Evaluation Rehab OT IP Evaluation Start: 05/02/22 08:16 Freq: ONCE Status: Complete Protocol: Document 05/02/22 10:06 JOSENORWICH (Rec: 05/02/22 10:10 [facility] [id number]) Rehab OT IP Assessment Subjective History Pt oriented x 4 on arrival. Pt agreeable to engage in therapy evaluation; present for evaluation. Pt was admitted via ED on due to Encephalopathy. Prior to being in the hospital , pt lived at home with his . He did use a cane during ambulation. Pt claims he was independent with all ADLs. He also reports he assisted with all IADLs as well. He no longer drove. Pt has a past medical history of: Abnormal EKG Abnormal Holter monitor finding Angina, class IV Cardiac pacemaker in situ COPD (chronic obstructive pulmonary disease) Left arm pain Subjective I can do what I need to. Objective Patient Orientation Person,Place,Birthday,Year Upper Extremity Gross ROM WFL Transfer Training Sit/Stand Transfer Assist Level Supervision/Stand by Chair Transfer Ability Supervision/Stand by Chair Transfer Technique Sit to/from Ambulatory Lower Body Dressing Ability Standby Assistance Performing Toilet Hygiene Ability Standby Assistance Overall Commode/Toilet Transfer Ability Standby Assistance Commode/Toilet Transfer Technique Sit to/from Ambulatory Rehab OT IP prob,goals,plan Problems Date of Evaluation: 05/02/22 Rehab Potential Rehab Potential Innapropriate for Skilled Therapy Discharge Plan OT Discharge Plan At this time, pt appears to be at his baseline with ADLs and functional transfers. Pt can return home with once he is medically stable per physician. Thank you for involving OT services in patients plan of care. Eval Complexity Eval Charge Codes 29862 - Low Complexity G Codes G -code Required
--- NOTE | 2022-05-02 10:55 | PC.NURSE ---
Addendum entered by June Davis RN 05/02/22 17:26: collected and sent to lab Original Note: Unable to collect sputum at this time, specimen cup at bedside
--- NOTE | 2022-05-02 13:57 | US_ITS ---
FINAL REPORT CLINICAL HISTORY: Elevated alk phos FINDINGS: Sonographic images of the right upper quadrant were obtained. The pancreas is partially obscured. There is a moderate size right pleural effusion. The liver is mildly heterogeneous without obvious changes of cirrhosis. Patient is status post cholecystectomy. There is mild biliary ductal dilatation measuring up to 8 mm. Limited images of the right kidney are unremarkable. IMPRESSION: Mildly heterogeneous liver without obvious mass or definite cirrhosis. Moderate pleural effusion. Moderate biliary ductal dilatation likely related to post cholecystectomy change. Reviewed, Interpreted and Dictated by Ciera Summers MD Transcribed by Marge Kevin Authenticated and [facility]
--- NOTE | 2022-05-02 14:06 | CA_ITS ---
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 RVT Ht: 5 ft 9 in Wt: 128lbs BSA: 1.71 BP: 104/54 mmHg Indications: SOA,PNEUMONIA,SEPSIS,RBBB,PACER,EX SMOKER,PT STATES BOVINE VALVE REPLACEMENT DOES NOT KNOW WHICH VALVE ?AVR TDS 2D Dimensions LVOT 1.91 cm (M/F) 1.5-2.5 LA Volume 62.90 mL LA Volume Index 36.78 mL/m2 (M/F) 16-34 M-Mode Dimensions RVDd 2.85 cm (0.9-2.6) LA Diam 5.03 cm (1.9-4.0) LVDd 3.27 cm (3.5-5.7) Ao Diam 3.00 cm (2.0-3.7) LVDs 2.05 cm (3.5-5.7) IVSd 1.29 cm (0.6-1.1) PWd 1.03 cm (0.6-1.1) EF (Teich) 68.50% FS 37.30% EDV (Teich) 43.20 mL ESV (Teich) 13.60 mL LV Diastology E Decel Time 150.00 (160-240 msec) E/A Ratio 0.9 MED E' 8.60 (< 7 cm/sec) E'/MED E' Ratio 13.95 (>14) LAT E' 9.00 (<10 cm/sec) E/LAT E' Ratio 13.33 (>14) Aortic Valve LVOT Max 80.00 (70-110 cm/s) LVOT VTI 16.61 cm AoV Peak Travis. 213.00 (50-130 cm/s) AO Peak GR. 18.20 mmHg AO Mean GR. 9.30 (<5 mmHg) AO VTI 42.87 (18-25 cm) JOHANNA (VTI) 1.11 (2.5-4.5 cm2) Mitral Valve MV E Max Travis. 120.00 (40-130 cm/s) MV A Velocity 130.00 (40-130 cm/s) E/A Ratio 0.92 MV Decel. Time 150.00 (160-240 ms) MV Mean Gr. 3.50 (<2mmHg) MV PHT 44.00 ms Pulmonary Valve PV Peak Velocity 75.00 (50-150 cm/s) Tricuspid Valve TR P. Velocity 335.00 cm/s RAP Estimate 10.00 mmHg RVSP 54.80 mmHg Left Ventricle Left atrium is mildly enlarged, left ventricle is normal size mild concentric left ventricular hypertrophy, estimated ejection fraction 55% with no regional wall motion abnormality, grade 1 diastolic dysfunction seen without tissue Doppler evidence of raise left atrial pressure. Right Ventricle Right atrium and right ventricle are mildly enlarged with normal contractility, pacemaker lead seen in right atrium and right ventricle. Aortic Valve Bioprosthetic valve noted in the aortic position, the valve is well-seated, the maximum aortic outflow velocity is 2.29 m/s, with a mean gradient across prosthetic valve is 11 mmHg, there is no significant aortic insufficiency. Mitral Valve Mitral valve has dense mitral annular calcification which extends in both anterior posterior mitral leaflet, there is no significant mitral stenosis, there is moderate mitral regurgitation. Tricuspid Valve Tricuspid valve is grossly normal, there is moderate tricuspid regurgitation, calculated right ventricular systolic pressure is 52 mmHg. Pulmonic Valve Pulmonic valve is poorly visualized. Great Vessels Aortic root is normal size. Inferior vena cava is mildly dilated with normal inspiratory collapse. Pericardium No significant pericardial effusion noted. Conclusion 1. Biatrial enlargement, normal left ventricular size, mild concentric left ventricular hypertrophy, estimated ejection fraction 55% with no regional wall motion abnormality, grade 1 diastolic dysfunction seen without tissue Doppler evidence of raise left atrial pressure. 2. Bioprosthetic valve in the aortic position with acceptable gradients, there is no aortic insufficiency. 3. Moderate mitral and tricuspid regurgitation, calculated right ventricular systolic pressure is 52 mmHg. 4. No significant pericardial effusion noted. 5. Inferior vena cava is mildly dilated with normal inspiratory collapse. Electronically signed by : Charlie Haynes MD 05/03/2022 06:16:19
[2022-05-02 14:23] LABS: POC Glucose,Bedside 172 (70-110)
--- NOTE | 2022-05-02 16:23 | PC.NURSE ---
Pt is alert and oriented x4. Lungs clear but diminished. He remains on RA with O2 saturations measuring 95% or >. He's ambulated to the bathroom with assist x1. He was up to the chair for most of the shift and tolerated well. He's been BBB and 1st degree block w/occasional pacer spikes on tele. His only complaint has been that he wants to go home. He is currently resting in bed watching tv. Bed is locked and in the lowest position, call light is within reach.
[2022-05-02 16:57] LABS: POC Glucose,Bedside 229 (70-110)
--- NOTE | 2022-05-02 20:58 | EXP.ACUTE.PN ---
Subjective *Date: 05/02/22 *Time: 08:30 Interval history: No events overnight this morning patient is doing well. No concerns or complaints Medical Exam Vital signs and Labs for Last 24 Hours: Vital Signs Temp Pulse Pulse Resp BP Pulse Ox 05/02/22 20:00 98.9 F 84 18 101/49 L 94 L 05/02/22 16:00 98.4 F 79 22 143/61 H 98 05/02/22 18:18 78 05/02/22 18:18 79 05/02/22 16:00 80 05/02/22 11:52 80 05/02/22 08:00 80 05/02/22 12:00 98.1 F 79 19 124/54 L 96 05/02/22 11:10 71 18 05/02/22 11:10 71 05/02/22 11:10 78 05/02/22 08:00 98.5 F 73 19 132/61 97 05/02/22 00:00 70 05/02/22 04:00 70 05/02/22 04:00 98.9 F 71 18 111/67 95 05/01/22 23:54 98.7 F 74 20 114/55 L 96 Intake and Output 05/02/22 05/02/22 05/02/22 07:59 15:59 23:59 Intake Total 1291 / 2787 300 / 2787 1196 / 2787 Output Total 150 / 150 0 / 150 0 / 150 Balance 1141 / 2637 300 / 2637 1196 / 2637 Intake: Intake, Oral Amount 300 / 660 360 / 660 Intake, Total IV Amount 1291 / 2127 836 / 2127 0.9 % Sodium Chloride 1,000 ml 1291 / 2127 836 / 2127 @ 100 mls/hr IV .Q10H [facility] Rx#: [id number] Output: Output, Urine Amount 150 / 150 0 / 150 0 / 150 Other: Number of Voids 0 Number of Unmeasured Voids 1 1 Number of Bowel Movements 0 Weight 58.598 kg 58.598 kg Patient Weight 05/02/22 23:59 Weight 58.598 kg Laboratory Results - last 24 hr 05/01/22 20:06: POC Glucose 121 H 05/02/22 05:44: POC Glucose 115 H 05/02/22 05:49: WBC 13.6 H, RBC 3.02 L, Hgb 10.0 L, Hct 31.3 L, MCV 103.5 H, MCH 33.2 H, MCHC 32.1, RDW 13.5, Plt Count 117 L, MPV 10.0, Neut % (Auto) 78.3, Lymph % (Auto) 9.1 L, Cook % (Auto) 11.5 H, Eos % (Auto) 0.9, Baso % (Auto) 0.1, Neut # (Auto) 10.7 H, Lymph # (Auto) 1.3, Cook # (Auto) 1.6 H, Eos # (Auto) 0.1, Baso # (Auto) 0.0 05/02/22 05:49: Sodium 139, Potassium 3.8, Chloride 104, Carbon Dioxide 21 L, Anion Gap 17.8 H, BUN 30 H, Creatinine 1.30 H, Estimated Creat Clear 39, Estimated GFR 54 L, Est GFR ( Amer) 65, Glucose 107 H D, Calcium 8.5, Phosphorus 2.4 L, Magnesium 1.6, Total Bilirubin 0.7, AST 36, ALT 31, Alkaline Phosphatase 158 H, Total Protein 5.8 L, Albumin 3.0 L, Globulin 2.8, Albumin/Globulin Ratio 1.1 05/02/22 11:53: POC Glucose 172 H 05/02/22 16:39: POC Glucose 229 H I & O for Labs for Last 24 Hours: Intake & Output 04/29/22 04/30/22 05/01/22 05/02/22 23:59 23:59 23:59 23:59 Intake Total 3044 / 3044 3379 / 3379 2787 / 2787 Output Total 200 / 550 1050 / 1200 150 / 150 Balance 2844 / 2494 2329 / 2179 2637 / 2637 Weight 53.212 kg 54.613 kg 58.598 kg Microbiology Reports for the Last 24 Hours: Microbiology 04/30/22 12:58 Blood - Final Not Reportable 04/30/22 12:58 Blood - Final Not Reportable 04/30/22 12:58 Blood - Final Not Reportable 04/30/22 12:58 Blood - Final Not Reportable 04/30/22 12:58 Blood - Final Not Reportable 04/30/22 12:58 Blood Blood Culture - Preliminary 04/30/22 13:01 Blood Blood Culture - Preliminary Head: Present atraumatic Neck: Present normal inspection Respiratory: Present CTA bilaterally; Absent accessory muscle use Cardiac: Present Reg Rate and Rhythm and S1/S2 GI: Present soft; Absent distention Rectal (male): Present deferred (male): Present deferred Extremities: Present normal inspection Skin: Present intact Assessment and Plan *Assessment and plan (1) Pneumonia: Status: Acute Category: Medical Code(s): J18.9 - Pneumonia, unspecified organism (2) Hypoxemia: Status: Acute Category: Medical Code(s): R09.02 - Hypoxemia (3) Right upper lobe pneumonia: Status: Acute Category: Medical Code(s): J18.9 - Pneumoni
[2022-05-02 21:02] LABS: POC Glucose,Bedside 145 (70-110)
[2022-05-03] VITALS: BP 109/53; PULSE 93; RESP 20; TEMP 37; O2SAT 96
--- NOTE | 2022-05-03 01:18 | PC.NURSE ---
pt moved to 266 via bed
[2022-05-03 01:30] VITALS: BP 124/59; PULSE 84; RESP 16; TEMP 37.1; O2SAT 95
[2022-05-03 04:00] VITALS: BP 101/48; PULSE 70; PULSE 84; RESP 19; TEMP 37; O2SAT 97
[2022-05-03 05:50] LABS: POC Glucose,Bedside 153 (70-110)
[2022-05-03 06:10] LABS: Basophils % 0.1 % (0.1-2.0); Eosinophils # 0.2 K/mm3 (0.0-0.4); Eosinophils % 1.9 % (0.1-12.0); Hematocrit 31.4 % (42.0-52.0); Hemoglobin 9.9 g/dL (14.1-18.0); Lymphocytes # 1.2 K/mm3 (0.7-4.5); Mean Corpuscular HGB Conc 31.6 g/dL (31.8-35.4); Mean Corpuscular Hemoglobin 33.7 pg (27.0-31.2); Mean Corpuscular Volume 106.5 fl (80-94); Mean Platelet Volume 8.6 fl (7.4-10.4); Monocytes # 1.3 K/mm3 (0.1-1.0); Monocytes % 11.7 % (1.7-9.3); Neutrophils # 8.2 K/mm3 (1.8-7.8); Neutrophils % 75.2 % (37.0-80.0); Platelet Count 123 K/mm3 (142-424); Red Blood Count 2.95 M/mm3 (4.60-6.20); Red Cell Distribution Width 13.2 % (11.5-17.5); White Blood Count 10.8 K/mm3 (4.8-10.8)
--- NOTE | 2022-05-03 06:10 | PC.NURSE ---
Pt has been pleasant t/o shift. Ambulates to BR standby assist. Pt has c/o chronic pain in fingers 1x. PRN medication administered per AUG. Call light within reach.
[2022-05-03 06:16] LABS: Alanine Aminotransferase 58 U/L (12-78); Albumin Level 3.3 g/dl (3.5-5.0); Albumin/Globulin Ratio 1.1 (1.1-1.8); Alkaline Phosphatase 148 U/L (38-126); Anion Gap 18.2 mEq/L (5-15); Aspartate Amino Transferase 61 U/L (17-59); Bilirubin,Total 0.5 mg/dl (0.2-1.3); Blood Urea Nitrogen 25 mg/dl (9-20); Calcium 8.5 mg/dl (8.4-10.2); Carbon Dioxide 22 mmol/L (22.0-30.0); Chloride 103 mmol/L (98-107); Creatinine Clearance Estimated 36 mL/min (50-200); Estimated Glomerular Filt Rate 49 ml/min (>60); GFR (African American) 59 ML/MIN (>60); Glucose 149 mg/dl (74-100); Phosphorous 3.2 mg/dl (2.5-4.5); Potassium 3.2 mmoL/L (3.5-5.1); Sodium 140 mmol/L (136-145); Total Protein,Serum 6.3 g/dl (6.3-8.2)
[2022-05-03 06:56] LABS: Magnesium 1.7 mg/dl (1.6-2.3)
[2022-05-03 08:00] VITALS: BP 131/65; PULSE 86; RESP 19; TEMP 36.9; O2SAT 98
--- NOTE | 2022-05-03 08:28 | EXP.DC.SUM ---
General Admission date:: 04/30/22 Discharge date: 05/03/22 HPI HPI HPI: Patient is 76-year-old male who presents emergency department by his due to altered mental status that was discovered this morning upon awakening. Patient is unable to provide history due to encephalopathy, so history is obtained by his . She states that when they woke up this morning he was confused and unable to respond. He has 1 episode like this in the past when he was diagnosed with a pneumonia. Currently he is doing much better and has improved with treatment received in the emergency department. Patient denies having any shortness of breath or cough or fevers and chills he does endorse chest pain to the center of his chest Hospital Course Hospital Course Hospital Course: 76-year-old man admitted with severe sepsis and acute encephalopathy secondary to right upper lobe community-acquired pneumonia.? He temporarily required Levophed but has been successfully weaned off.? Blood cultures returned positive for haemophilus influenza.? Suspect hematogenous spread of H. influenzae from pneumonia. Initially on broad-spectrum IV antibiotics. Tolerated well with defervescent's of symptoms. Medically stable for discharge home. Problems addressed as follows: Haemophilus influenza septicemia Right upper lobe community-acquired pneumonia Severe sepsis with septic shock-resolved Metabolic encephalopathy -Admitted for confusion and sepsis. Initially required norepinephrine drip to maintain blood pressure MAP above 65. Was weaned over 6 hours off of vasopressors. Initiated on ceftriaxone and azithromycin on admission. Symptoms improved. Blood culture, urine culture obtained. Blood culture returned positive for haemophilus flu. Chest imaging on admission positive for right upper lobe pneumonia. Given improvement in symptoms, patient transition to cefdinir to complete 14-day empiric course of antibiotics for pneumonia and H. influenzae bacteremia. -Mentation back to baseline by discharge DIANA on CKD-resolved -Creatinine initially elevated, improved to baseline at discharge per Macrocytic anemia - initiated vitamin once able to tolerate p.o. recommend continuing as an outpatient Diabetes -Sliding scale insulin while admitted. - Start Metformin BID at discharge. Patient tolerating oral intake, transition to oral antibiotics. No oxygen requirement. Stable for discharge home to complete antibiotic therapy. Follow-up with PCP in the next 1 to 2 weeks. Exam Data for Last 24 hours Vital signs and Labs for Last 24 Hours: Temp Pulse Resp BP Pulse Ox 98.6 F 84 19 101/48 L 97 05/03/22 04:00 05/03/22 04:00 05/03/22 04:00 05/03/22 04:00 05/03/22 04:00 Laboratory Results - last 24 hr 05/02/22 11:53: POC Glucose 172 H 05/02/22 16:39: POC Glucose 229 H 05/02/22 20:56: POC Glucose 145 H 05/03/22 05:42: WBC 10.8, RBC 2.95 L, Hgb 9.9 L, Hct 31.4 L, MCV 106.5 H, MCH 33.7 H, MCHC 31.6 L, RDW 13.2, Plt Count 123 L, MPV 8.6, Neut % (Auto) 75.2, Lymph % (Auto) 11.0, Harnett % (Auto) 11.7 H, Eos % (Auto) 1.9, Baso % (Auto) 0.1, Neut # (Auto) 8.2 H, Lymph # (Auto) 1.2, Harnett # (Auto) 1.3 H, Eos # (Auto) 0.2, Baso # (Auto) 0.0 05/03/22 05:42: Sodium 140, Potassium 3.2 L, Chloride 103, Carbon Dioxide 22, Anion Gap 18.2 H, BUN 25 H, Creatinine 1.40 H, Estimated Creat Clear 36, Estimated GFR 49 L, Est GFR ( Amer) 59, Glucose 149 H D, Calcium 8.5, Phosphorus 3.2 D, Total Bilirubin 0.5, AST 61 H D, ALT 58 D, Alkaline Phosphatase 148 H, Total Protein 6.3, Albumin 3.3 L, Globulin 3.0, Albumin/Globulin Ratio 1.1 05/03/22 05:42: Magnesium 1.7 05/03/22 05:42: POC Glucose 153 H I & O for Last 24 hours: Intake & Output 04/30/22 05/01/22 05/02/22 05/03/22 23:59 23:59 23:59 23:59 Intake Total 3044 / 3044 3379 / 3379 2787 / 2787 Output Total 200 / 550 1050 / 1200 150 / 150 450 / 450 Balance 2844 / 2494 2329 / 2179 2637 / 2637 -450 / -450 Weight 53.212 k
--- NOTE | 2022-05-03 09:24 | PC.NURSE ---
at end of rocephin infusion noted some redness to iv site. removed iv. patient has no complaints. verified with pharmacy nothing was needed for infiltration of rocephin.
[2022-05-03 11:21] LABS: POC Glucose,Bedside 203 (70-110)
--- NOTE | 2022-05-03 11:36 | HMH.PHAINT1 ---
Pharmacy Intervention Comments: Discharge counseling completed at bedside with patient and . Discussed new medications (cefdinir and metformin) and continued medications. Overviewed indication and possible side effects/mitigation strategies for each new medication. Patient and verbalized understanding and have no questions or concerns at this time.
--- NOTE | 2022-05-04 13:48 | CARE MANAGER ---
Spoke with Tao regarding post discharge status. Patient stated that he is doing well. 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 Jimenez on 05/10. No complaints voiced at time of call.
== END 2022-05-03 12:05 | disposition home or self-care (01) | DRG 871 ==
LOC: ER 13:04 → 2ND 13:38 → ICU 05-03 01:10
PROVIDERS: Admitting Provider Student in an Organized Health Care Education/Training Program; Emergency Provider Emergency Medicine; PCP Internal Medicine; Visit Provider Student in an Organized Health Care Education/Training Program
DX: A41.3 Sepsis due to Hemophilus influenzae (principal); G93.41 Metabolic encephalopathy; J18.9 Pneumonia, unspecified organism; R65.21 Severe sepsis with septic shock; N17.9 Acute kidney failure, unspecified; J44.9 Chronic obstructive pulmonary disease, unspecified; Z87.891 Personal history of nicotine dependence; D53.9 Nutritional anemia, unspecified; N18.9 Chronic kidney disease, unspecified; E83.39 Other disorders of phosphorus metabolism; E11.22 Type 2 diabetes mellitus with diabetic chronic kidney disease
CPT/HCPCS: 36415; 70450; 71045; 76705; 80053; 81001; 82962; 83036; 83605; 83735; 84100; 84484; 85007; 85025; 85610; 87040; 87070; 87077; 87205; 93005; 93306; 94640; 97162; 97165; 99285; C9803; J0456; J0696; U0003; U0005

== ENCOUNTER → 2022-05-10 17:11 | Outpatient (CLI) | payer MEDICARE, OTHER, SELFPAY ==
[2022-05-10 17:35] LABS: Basophils # 0.1 K/mm3 (0-0.2); Basophils % 0.6 % (0.1-2.0); Eosinophils # 0.4 K/mm3 (0.0-0.4); Hematocrit 31.6 % (42.0-52.0); Hemoglobin 10.3 g/dL (14.1-18.0); Lymphocytes # 1.2 K/mm3 (0.7-4.5); Lymphocytes % 16.7 % (10-50); Mean Corpuscular HGB Conc 32.7 g/dL (31.8-35.4); Mean Corpuscular Hemoglobin 33.7 pg (27.0-31.2); Mean Corpuscular Volume 103.2 fl (80-94); Monocytes % 13.6 % (1.7-9.3); Neutrophils # 4.5 K/mm3 (1.8-7.8); Platelet Count 299 K/mm3 (142-424); Red Blood Count 3.06 M/mm3 (4.60-6.20); Red Cell Distribution Width 13.4 % (11.5-17.5); White Blood Count 7.1 K/mm3 (4.8-10.8)
[2022-05-10 17:55] LABS: Anion Gap 13.5 mEq/L (5-15); Blood Urea Nitrogen 43 mg/dl (9-20); Calcium 9.2 mg/dl (8.4-10.2); Carbon Dioxide 33 mmol/L (22.0-30.0); Chloride 95 mmol/L (98-107); Estimated Glomerular Filt Rate 31 ml/min (>60); GFR (African American) 37 ML/MIN (>60); Glucose 134 mg/dl (74-100); Potassium 4.5 mmoL/L (3.5-5.1); Sodium 137 mmol/L (136-145)
== END ==
PROVIDERS: PCP Internal Medicine; Visit Provider Internal Medicine
DX: I25.10 Atherosclerotic heart disease of native coronary artery without angina pectoris (principal); I11.0 Hypertensive heart disease with heart failure; I50.22 Chronic systolic (congestive) heart failure; E11.59 Type 2 diabetes mellitus with other circulatory complications; J14 Pneumonia due to Hemophilus influenzae; N18.9 Chronic kidney disease, unspecified
CPT/HCPCS: 80048; 85025

== ENCOUNTER → 2022-08-23 12:09 | Outpatient (CLI) | payer MEDICARE, OTHER, SELFPAY ==
[2022-08-23 13:29] LABS: Basophils % 0.8 % (0.1-2.0); Eosinophils # 0.5 K/mm3 (0.0-0.4); Eosinophils % 8.9 % (0.1-12.0); Hematocrit 32.9 % (42.0-52.0); Hemoglobin 10.4 g/dL (14.1-18.0); Lymphocytes % 18.9 % (10-50); Mean Corpuscular HGB Conc 31.7 g/dL (31.8-35.4); Mean Corpuscular Hemoglobin 33.2 pg (27.0-31.2); Mean Corpuscular Volume 104.9 fl (80-94); Mean Platelet Volume 10.1 fl (7.4-10.4); Monocytes # 0.8 K/mm3 (0.1-1.0); Monocytes % 13.8 % (1.7-9.3); Neutrophils # 3.2 K/mm3 (1.8-7.8); Neutrophils % 57.7 % (37.0-80.0); Platelet Count 158 K/mm3 (142-424); Red Blood Count 3.14 M/mm3 (4.60-6.20); Red Cell Distribution Width 13.6 % (11.5-17.5); White Blood Count 5.5 K/mm3 (4.8-10.8)
[2022-08-23 13:58] LABS: Alanine Aminotransferase 18 U/L (12-78); Albumin Level 3.7 g/dl (3.5-5.0); Albumin/Globulin Ratio 1.4 (1.1-1.8); Alkaline Phosphatase 192 U/L (38-126); Anion Gap 10.4 mEq/L (5-15); Aspartate Amino Transferase 27 U/L (17-59); Bilirubin,Total 0.9 mg/dl (0.2-1.3); Blood Urea Nitrogen 35 mg/dl (9-20); Calcium 8.4 mg/dl (8.4-10.2); Carbon Dioxide 27 mmol/L (22.0-30.0); Chloride 104 mmol/L (98-107); Chol/HDL Ratio 1.6 (1-3.5); Cholesterol 98 mg/dl (140-200); Estimated Glomerular Filt Rate 42 ml/min (>60); GFR (African American) 51 ML/MIN (>60); Globulin 2.7 g/dL (1.3-3.2); Glucose 112 mg/dl (74-100); HDL Cholesterol 61 mg/dl (40-60); Potassium 5.4 mmoL/L (3.5-5.1); Sodium 136 mmol/L (136-145); Total Protein,Serum 6.4 g/dl (6.3-8.2); Triglycerides 49 mg/dl (30-150); VLDL Cholesterol 10 mg/dL (0-40)
[2022-08-23 14:10] LABS: Hemoglobin A1C 6.6 % (4.0-6.0)
[2022-08-23 14:12] LABS: Direct LDL Cholesterol 32.55 mg/dL (100-129)
== END ==
PROVIDERS: PCP Internal Medicine; Visit Provider Internal Medicine
DX: E11.59 Type 2 diabetes mellitus with other circulatory complications (principal); I25.10 Atherosclerotic heart disease of native coronary artery without angina pectoris; I10 Essential (primary) hypertension; E78.5 Hyperlipidemia, unspecified; G60.9 Hereditary and idiopathic neuropathy, unspecified; Z85.72 Personal history of non-Hodgkin lymphomas; Z79.84 Long term (current) use of oral hypoglycemic drugs
CPT/HCPCS: 80053; 80061; 83036; 85025

== ENCOUNTER → 2022-11-30 12:55 | Outpatient (CLI) | payer MEDICARE, OTHER, SELFPAY ==
--- NOTE | 2022-11-30 13:00 | XR_ITS ---
FINAL REPORT CLINICAL HISTORY: chest pain FINDINGS: TWO-VIEW CHEST The heart size is normal. The patient is status post median sternotomy. Left subclavian pacer is identified. There are mild left base opacities, favor atelectasis or scar. There is fusion of multiple thoracic vertebra worrisome for ankylosing spondylitis. There is no pneumothorax. IMPRESSION: Left base opacities, favor atelectasis or scar. Findings worrisome for ankylosing spondylitis. Reviewed, Interpreted and Dictated by Rosalio Llanes III, MD Transcribed by Andria Lin Authenticated and [facility]
[2022-11-30 13:26] LABS: Basophils % 0.5 % (0.1-2.0); Eosinophils # 0.4 K/mm3 (0.0-0.4); Eosinophils % 5.7 % (0.1-12.0); Hematocrit 33.9 % (42.0-52.0); Hemoglobin 10.6 g/dL (14.1-18.0); Lymphocytes # 1.5 K/mm3 (0.7-4.5); Lymphocytes % 22.4 % (10-50); Mean Corpuscular HGB Conc 31.5 g/dL (31.8-35.4); Mean Corpuscular Hemoglobin 32.9 pg (27.0-31.2); Mean Corpuscular Volume 104.7 fl (80-94); Mean Platelet Volume 8.5 fl (7.4-10.4); Monocytes # 0.8 K/mm3 (0.1-1.0); Monocytes % 12.5 % (1.7-9.3); Neutrophils # 3.8 K/mm3 (1.8-7.8); Neutrophils % 58.9 % (37.0-80.0); Platelet Count 174 K/mm3 (142-424); Red Blood Count 3.23 M/mm3 (4.60-6.20); Red Cell Distribution Width 14.4 % (11.5-17.5); White Blood Count 6.5 K/mm3 (4.8-10.8)
[2022-11-30 13:59] LABS: Alanine Aminotransferase 23 U/L (12-78); Albumin Level 4.2 g/dl (3.5-5.0); Alkaline Phosphatase 247 U/L (38-126); Anion Gap 18.2 mEq/L (5-15); Aspartate Amino Transferase 30 U/L (17-59); Bilirubin,Indirect 0.7 mg/dL (0.0-0.9); Bilirubin,Total 0.7 mg/dl (0.2-1.3); Bilirubin,Unconjugated 0.7 mg/dL (0.0-1.1); Blood Urea Nitrogen 55 mg/dl (9-20); Calcium 9.4 mg/dl (8.4-10.2); Carbon Dioxide 31 mmol/L (22.0-30.0); Chloride 98 mmol/L (98-107); Chol/HDL Ratio 1.7 (1-3.5); Cholesterol 122 mg/dl (140-200); Estimated Glomerular Filt Rate 25 ml/min (>60); GFR (African American) 30 ML/MIN (>60); Glucose 202 mg/dl (74-100); HDL Cholesterol 70 mg/dl (40-60); Potassium 5.2 mmoL/L (3.5-5.1); Sodium 142 mmol/L (136-145); Total Protein,Serum 7.3 g/dl (6.3-8.2); Triglycerides 64 mg/dl (30-150); VLDL Cholesterol 13 mg/dL (0-40)
[2022-11-30 14:10] LABS: Direct LDL Cholesterol 40.18 mg/dL (100-129)
[2022-11-30 14:15] LABS: Free T4 (Free Thyroxine) 1.55 ng/dl (0.78-2.19)
[2022-11-30 14:29] LABS: Thyroid Stimulating Hormone 0.53 uIU/mL (0.465-4.68)
== END ==
PROVIDERS: PCP Internal Medicine; Visit Provider Internal Medicine
DX: E11.9 Type 2 diabetes mellitus without complications (principal); E78.2 Mixed hyperlipidemia; I25.810 Atherosclerosis of coronary artery bypass graft(s) without angina pectoris; R07.9 Chest pain, unspecified; Z95.1 Presence of aortocoronary bypass graft; R06.00 Dyspnea, unspecified; I11.9 Hypertensive heart disease without heart failure; I63.9 Cerebral infarction, unspecified
CPT/HCPCS: 36415; 71046; 80048; 80061; 80076; 84439; 84443; 85025

== ENCOUNTER → 2022-12-14 09:24 | Outpatient (CLI) | payer MEDICARE, OTHER, SELFPAY | PROVIDERS: PCP Internal Medicine; Visit Provider Internal Medicine | DX: E11.9 Type 2 diabetes mellitus without complications (principal); E78.2 Mixed hyperlipidemia; I25.810 Atherosclerosis of coronary artery bypass graft(s) without angina pectoris; R07.9 Chest pain, unspecified; Z95.1 Presence of aortocoronary bypass graft | CPT/HCPCS: 93306 ==

== ENCOUNTER → 2022-12-15 09:26 | Outpatient (CLI) | payer MEDICARE, OTHER, SELFPAY ==
--- NOTE | 2022-12-15 09:32 | US_ITS ---
FINAL REPORT CLINICAL HISTORY: CKD STAGE III,ELEVATED KIDNEY FUNCTION FINDINGS: The right kidney measures 7.9 cm in length. It is normal in echogenicity. There is no hydronephrosis. The left kidney measures 7.8 cm in length. It is normal in echogenicity. There is no hydronephrosis. The spleen is unremarkable. IMPRESSION: The kidneys are somewhat small which may be related to atrophy. Reviewed, Interpreted and Dictated by Rosalio Llanes III, MD Transcribed by Andria Lin Authenticated and [facility]
== END ==
PROVIDERS: PCP Internal Medicine; Visit Provider Internal Medicine
DX: N18.30 Chronic kidney disease, stage 3 unspecified (principal); R94.4 Abnormal results of kidney function studies
CPT/HCPCS: 76770

== ENCOUNTER 2023-02-08 07:17 | Emergency (ER) | payer MEDICARE, OTHER, SELFPAY ==
[2023-02-08] VITALS (9 sets, daily range): BP systolic 101–119; BP diastolic 44–58; PULSE 65–85; RESP 16–18; TEMP 36.7–37.1; O2SAT 96–100; BMI 18.2
--- NOTE | 2023-02-08 07:42 | XR_ITS ---
PROCEDURE INFORMATION: Exam: XR Chest Exam date and time: 02/08/2023 8:41 AM Age: 77 years old Clinical indication: Weakness; Pacemaker. TECHNIQUE: Imaging protocol: Radiologic exam of the chest. Views: 1 view. COMPARISON: CR XR CHEST 2V 11/30/2022 1:02 PM FINDINGS: Tubes, catheters and devices: There is a left-sided pacemaker. Lungs: There are coarse parenchymal changes at the left lung base which may represent an early infiltrate. Pleural spaces: Unremarkable. No pleural effusion. No pneumothorax. Heart/Mediastinum: Unremarkable. No cardiomegaly. Bones/joints: Median sternotomy wires are present. There is elevation of the left jose luis-diaphragm. IMPRESSION: There are coarse parenchymal changes at the left lung base which may represent an early infiltrate. This is more prominent than prior study. Clinical and imaging follow-up is recommended.
--- NOTE | 2023-02-08 07:45 | HMH.EDGENADL ---
Discharge Plan Disposition Patient Disposition: Home, Self-Care Condition: Good Prescriptions Prescriptions: New ondansetron 4 mg tablet,disintegrating 4 mg PO Q8H PRN (Reason: nausea and vomiting) 4 Days Qty: 12 0RF amoxicillin-pot clavulanate 875-125 mg tablet 1 tab PO BID Qty: 20 0RF No Action ibuprofen [Advil] 200 mg tablet 200 mg PO Q6H PRN diclofenac sodium [Voltaren Arthritis Pain] 1 % gel 2 g topical QID Qty: 100 0RF Rx Instructions: apply to single elbow, wrist or hand; for hand includes palm/fingers/back of hand aspirin [Adult Low Dose Aspirin] 81 mg tablet,delayed release (DR/EC) 81 mg PO DAILY furosemide [Lasix] 40 mg Tablet 40 mg PO NEEDED PRN (Reason: Edema) atorvastatin 40 MG tablet 40 mg PO HS oxycodone 15 mg tablet 15 mg PO Q6HP 7 Days Qty: 28 0RF thiamine mononitrate (vit B1) 100 MG tablet 100 mg PO DAILY Referrals Follow up/Referrals: Dorinda Pruett MD [Staff Physician] - See instructions Sachin Jimenez MD [Primary Care Provider] - See instructions Activity Restrictions/Add. Instructions Additional Instructions/Restrictions: You were evaluated in the emergency department today. Please bulk picker your prescription for antibiotics at the pharmacy and take the full course as prescribed. Make sure that you continue taking your other medications at home as prescribed as well. 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 Make sure that you are staying hydrated. It appears that the lesion on your scalp is a mass, and it is concerning that it could be cancerous based on scan. I recommend follow-up with your primary care provider to arrange quick follow-up with oncology. Please return to the emergency department for any new or worsening symptoms. Clinical Impressions Clinical Impression: Mass of scalp, General weakness Pneumonia Qualifiers: Laterality: left Lung location: lower lobe of lung Instructions Patient Instructions: DI for Pneumonia -- Adult, DI for Nausea -- Adult, DI for Muscle Weakness Discharge ED Provider: Jodie Colmenares General Adult HPI General Chief complaint: Nausea/Vomiting/Diarrhea Stated complaint: stomach pain Time Seen by Provider: 02/08/23 07:27 Mode of Arrival: Wheelchair Source of Information: Patient Limitations: No Limitations Description of Symptoms (Recalled from ER Triage Doc. by RN): Patient reports waking up feeling sick to his stomach. Denies any other symptoms at this time. states he was hard to respond earlier this morning. History of Present Illness HPI narrative: This patient is a 77-year-old male who has a history of aortic valve stenosis status post aortic valve replacement, CAD status post CABG, cardiac pacemaker, COPD, hyperlipidemia, and type 2 diabetes presenting to the emergency department for evaluation with concern for generalized weakness. He states that when he woke up this morning he just was not feeling well. He states that he feels very sick to his stomach and very weak. He states that he tried to go to the bathroom and was not able to get up. He states he was feeling okay yesterday. He denies any recent fevers, chills, chest pain, shortness of breath, cough, congestion, abdominal pain, changes in bowel movements, melena, hematochezia, dysuria, rashes, or new swelling. He does state that he has a wound on his head that bleeds profusely intermittently anytime he tries to change the bandage. He has seen Dr. Peng for this on medical record review, who states that he would require complex surgery and would likely need referral to for plastics. This is from a note in December of this year. Related Data Home Medications Medication Instructions Recorded Confirmed aspirin 81 mg tablet,delayed 81 mg PO DAILY [facility] 09/04/18 12/19/22 release (Adult Low Dose Aspirin) atorvastatin 40 mg tablet 40 mg PO HS Cholesterol 04/18/19 12/19/22 elia
--- NOTE | 2023-02-08 07:48 | CT_ITS ---
PROCEDURE INFORMATION: Exam: CT Head Without And With Contrast Exam date and time: 02/08/2023 8:17 AM Age: 77 years old Clinical indication: Large complex wound to vertex of scalp, fall was 2 years ago, wound will not stop bleeding. TECHNIQUE: Imaging protocol: Computed tomography of the head without and with contrast. Radiation optimization: All CT scans at this facility use at least one of these dose optimization techniques: automated exposure control; mA and/or kV adjustment per patient size (includes targeted exams where dose is matched to clinical indication); or iterative reconstruction. Contrast material: ISOVUE; Contrast volume: 50 ml; Contrast route: IV; REPORTING DATA: Count of CT and Cardiac NM exams in prior 12 months: This patient has received [address] and 0 known cardiac nuclear medicine studies in the 12 months prior to the current study. COMPARISON: No relevant prior studies available. FINDINGS: Brain: There is low attenuation abnormality in the periventricular white matter consistent with chronic microvascular ischemic changes. There is moderate intracranial vascular calcification. Cerebral ventricles: No ventriculomegaly. Paranasal sinuses: Visualized sinuses are unremarkable. No fluid levels. Mastoid air cells: Visualized mastoid air cells are well aerated. Bones/joints: Unremarkable. No acute fracture. Soft tissues: There is a large complex soft tissue mass within the left paramidline posterior parietal scalp. There are scattered nodular areas of enhancement. Its appearance and clinical history are not consistent with a simple scalp hematoma. IMPRESSION: 1. There is a large complex soft tissue mass within the left paramidline posterior parietal scalp. There are scattered nodular areas of enhancement. Its appearance and clinical history are not consistent with a simple scalp hematoma. A malignancy is suspected. Follow-up postcontrast MRI and surgical consultation are recommended. 2. There is low attenuation abnormality in the periventricular white matter consistent with chronic microvascular ischemic changes.
[2023-02-08 07:52] LABS: Basophils % 0.6 % (0.1-2.0); Eosinophils % 0.8 % (0.1-12.0); Hematocrit 32.7 % (42.0-52.0); Hemoglobin 9.9 g/dL (14.1-18.0); Lymphocytes # 0.5 K/mm3 (0.7-4.5); Lymphocytes % 9.9 % (10-50); Mean Corpuscular HGB Conc 30.3 g/dL (31.8-35.4); Mean Corpuscular Hemoglobin 31.3 pg (27.0-31.2); Mean Corpuscular Volume 103.2 fl (80-94); Monocytes # 0.7 K/mm3 (0.1-1.0); Monocytes % 13.9 % (1.7-9.3); Neutrophils % 74.9 % (37.0-80.0); Platelet Count 147 K/mm3 (142-424); Red Blood Count 3.17 M/mm3 (4.60-6.20); White Blood Count 5.4 K/mm3 (4.8-10.8)
--- NOTE | 2023-02-08 07:52 | ECG_ITS ---
APPROVED REPORT Exam: Resting ECG HR:75 bpm ECG Measurements Heart Rate 75 AXES TN 275 P 102 QRSd 166 QRS 190 QT 431 T 69 QTc 459 Conclusion ELECTRONIC VENTRICULAR PACEMAKER ABNORMAL RHYTHM ECG UNCONFIRMED REPORT Electronically signed by : Jesus Alfred MD 02/09/2023 20:01:58
[2023-02-08 07:57] LABS: Lipase 10 U/L (23-300); Magnesium 2.1 mg/dl (1.6-2.3)
[2023-02-08 07:58] LABS: Alanine Aminotransferase 25 U/L (12-78); Albumin Level 3.6 g/dl (3.5-5.0); Albumin/Globulin Ratio 1.1 (1.1-1.8); Alkaline Phosphatase 178 U/L (38-126); Anion Gap 13.6 mEq/L (5-15); Aspartate Amino Transferase 32 U/L (17-59); Bilirubin,Total 1.4 mg/dl (0.2-1.3); Blood Urea Nitrogen 44 mg/dl (9-20); Calcium 8.8 mg/dl (8.4-10.2); Carbon Dioxide 27 mmol/L (22.0-30.0); Chloride 101 mmol/L (98-107); Creatinine Clearance Estimated 28 mL/min (50-200); Estimated Glomerular Filt Rate 39 ml/min (>60); GFR (African American) 47 ML/MIN (>60); Globulin 3.3 g/dL (1.3-3.2); Glucose 169 mg/dl (74-100); Potassium 4.6 mmoL/L (3.5-5.1); Sodium 137 mmol/L (136-145); Total Protein,Serum 6.9 g/dl (6.3-8.2)
[2023-02-08 08:07] LABS: NT Pro Brain Natriuretic Pep. 4380 pg/mL (0-450)
[2023-02-08 08:14] LABS: T4 (Thyroxine) 10.8 ug/dl (5.53-11.0)
[2023-02-08 08:27] LABS: Thyroid Stimulating Hormone 0.47 uIU/mL (0.465-4.68)
--- NOTE | 2023-02-08 09:10 | PC.NURSE ---
Pt unable to urinate at this time, urinal at bs
[2023-02-08 09:35] LABS: Coronavirus 19, PCR Not Detected (NotDetected); Influenza A, PCR Not Detected (NotDetected); Influenza B, PCR Not Detected (NotDetected)
[2023-02-08 10:22] LABS: Appearance,Urine CLEAR (Clear); Bilirubin,Urine Negative (Negative); Blood, Urine Negative (Negative); Color,Urine YELLOW (Yellow); Glucose,Urine (UA) Negative (Negative); Ketones,Urine Negative (Negative); Leukocyte Esterase,Urine Negative (Negative); Microscopic, Urine URINE MICROSCOPIC (MICROSCOPIC); Nitrate,Urine Negative (Negative); Protein,Urine TRACE (Negative)
[2023-02-08 10:55] LABS: Squamous Epithelial Cell,Urine Occasional #/hpf (0-5); WBC,Urine Occasional #/hpf (0-3)
== END 2023-02-08 10:52 | disposition home or self-care (01) ==
PROVIDERS: Emergency Provider Emergency Medicine; PCP Internal Medicine
DX: J18.9 Pneumonia, unspecified organism (principal); R22.0 Localized swelling, mass and lump, head; R53.1 Weakness; J44.9 Chronic obstructive pulmonary disease, unspecified; E11.9 Type 2 diabetes mellitus without complications; E78.5 Hyperlipidemia, unspecified; Z95.0 Presence of cardiac pacemaker; I25.118 Atherosclerotic heart disease of native coronary artery with other forms of angina pectoris
CPT/HCPCS: 70470; 71045; 80053; 81001; 83690; 83735; 83880; 84436; 84443; 85025; 87636; 93005; 96361; 96374; 99285; J2405; Q9966

== ENCOUNTER → 2023-02-27 18:26 | Outpatient (CLI) | payer MEDICARE, OTHER, SELFPAY ==
[2023-02-27 19:33] LABS: Basophils % 0.2 % (0.1-2.0); Eosinophils # 0.4 K/mm3 (0.0-0.4); Eosinophils % 3.7 % (0.1-12.0); Hematocrit 34.1 % (42.0-52.0); Hemoglobin 10.4 g/dL (14.1-18.0); Lymphocytes # 1.6 K/mm3 (0.7-4.5); Lymphocytes % 15.8 % (10-50); Mean Corpuscular HGB Conc 30.5 g/dL (31.8-35.4); Mean Corpuscular Hemoglobin 32.6 pg (27.0-31.2); Mean Corpuscular Volume 106.9 fl (80-94); Mean Platelet Volume 10.3 fl (7.4-10.4); Monocytes # 1.3 K/mm3 (0.1-1.0); Monocytes % 12.9 % (1.7-9.3); Neutrophils # 6.9 K/mm3 (1.8-7.8); Neutrophils % 67.4 % (37.0-80.0); Platelet Count 206 K/mm3 (142-424); Red Blood Count 3.19 M/mm3 (4.60-6.20); White Blood Count 10.2 K/mm3 (4.8-10.8)
[2023-02-27 19:44] LABS: Alanine Aminotransferase 23 U/L (12-78); Albumin Level 3.9 g/dl (3.5-5.0); Albumin/Globulin Ratio 1.1 (1.1-1.8); Alkaline Phosphatase 214 U/L (38-126); Anion Gap 15.2 mEq/L (5-15); Aspartate Amino Transferase 29 U/L (17-59); Bilirubin,Total 1.3 mg/dl (0.2-1.3); Blood Urea Nitrogen 38 mg/dl (9-20); Calcium 9.4 mg/dl (8.4-10.2); Carbon Dioxide 31 mmol/L (22.0-30.0); Chloride 100 mmol/L (98-107); Chol/HDL Ratio 1.7 (1-3.5); Cholesterol 109 mg/dl (140-200); Estimated Glomerular Filt Rate 37 ml/min (>60); GFR (African American) 44 ML/MIN (>60); Globulin 3.4 g/dL (1.3-3.2); Glucose 125 mg/dl (74-100); HDL Cholesterol 64 mg/dl (40-60); Potassium 5.2 mmoL/L (3.5-5.1); Sodium 141 mmol/L (136-145); Total Protein,Serum 7.3 g/dl (6.3-8.2); Triglycerides 60 mg/dl (30-150); VLDL Cholesterol 12 mg/dL (0-40)
[2023-02-27 19:52] LABS: Hemoglobin A1C 6.8 % (4.0-6.0)
[2023-02-27 19:55] LABS: Direct LDL Cholesterol 41.12 mg/dL (100-129)
== END ==
PROVIDERS: PCP Internal Medicine; Visit Provider Internal Medicine
DX: E11.59 Type 2 diabetes mellitus with other circulatory complications (principal); I25.10 Atherosclerotic heart disease of native coronary artery without angina pectoris; G60.9 Hereditary and idiopathic neuropathy, unspecified; E78.5 Hyperlipidemia, unspecified; Z85.72 Personal history of non-Hodgkin lymphomas; Z95.2 Presence of prosthetic heart valve; I11.0 Hypertensive heart disease with heart failure
CPT/HCPCS: 80053; 80061; 83036; 85025

== ENCOUNTER 2023-04-19 10:40 | Observation (INO) | payer MEDICARE, OTHER, SELFPAY ==
[2023-04-19 10:59] VITALS: BP 77/44; PULSE 103; RESP 20; TEMP 36.5; O2SAT 94; BMI 17.8
[2023-04-19 11:00] VITALS: BP 101/63; PULSE 85; O2SAT 95
--- NOTE | 2023-04-19 11:08 | CT_ITS ---
FINAL REPORT TECHNIQUE: Axial images through the brain were performed after the administration of IV contrast. Coronal reconstructions were submitted. This study was performed with techniques to keep radiation doses as low as reasonably achievable (ALARA). Individualized dose reduction techniques using automated exposure control or adjustment of mA and/or kV according to the patient's size were employed. CLINICAL HISTORY: fungating mass occiput COMPARISON: None 623 FINDINGS: There is no evidence of intracranial hemorrhage or mass. There is moderate atrophy with proportionate ventriculomegaly. There is confluent abnormal decreased attenuation in the deep white matter consistent with chronic ischemia. There is no evidence of shift of the midline structures. No abnormal extra axial fluid collection is identified. No skull abnormality is seen on the bone window images. There is a large exophytic mass arising from the posterior scalp measuring 9.3 x 3.5 cm. It is heterogeneous and appears to be somewhat ulcerated as seen on sagittal images. There is thinning underlying the calvarium. No intracranial extension is noted. 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 Reviewed, Interpreted and Dictated by Benja Spivey MD Transcribed by Rosa Schaefer Authenticated and [facility]
--- NOTE | 2023-04-19 11:11 | HMH.EDGENADL ---
Discharge Plan Disposition Patient Disposition: Admitted Chief Complaint: Recheck/Abnormal Lab/Rx Prescriptions Prescriptions: No Action ibuprofen [Advil] 200 mg tablet 200 mg PO Q6H PRN diclofenac sodium [Voltaren Arthritis Pain] 1 % gel 2 g topical QID Qty: 100 0RF Rx Instructions: apply to single elbow, wrist or hand; for hand includes palm/fingers/back of hand aspirin [Adult Low Dose Aspirin] 81 mg tablet,delayed release (DR/EC) 81 mg PO DAILY furosemide [Lasix] 40 mg Tablet 40 mg PO NEEDED PRN (Reason: Edema) ondansetron 4 mg tablet,disintegrating 4 mg PO Q8H PRN (Reason: nausea and vomiting) 4 Days Qty: 12 0RF atorvastatin 40 MG tablet 40 mg PO HS oxycodone 15 mg tablet 15 mg PO Q6HP 7 Days Qty: 28 0RF thiamine mononitrate (vit B1) 100 MG tablet 100 mg PO DAILY Referrals Follow up/Referrals: Sachin Jimenez MD [Primary Care Provider] - See instructions Discharge ED Provider: Enrique Melgar General Adult HPI <Enrique Melgar MD - Last Filed: 04/19/23 15:24> General Chief complaint: Recheck/Abnormal Lab/Rx Stated complaint: sores on head, bleeding Time Seen by Provider: 04/19/23 10:46 History of Present Illness HPI narrative: 77-year-old male history of lymphoma in remission, hypertension, hyperlipidemia, diabetes, CAD status post CABG currently on daily aspirin, pacemaker defibrillator in place, COPD presenting with head mass. Patient states that he has had a mass on the back of his head for months. After my review of patient's chart, he has had abnormality on his occipital skull since as far back as 2019, which is as far as imaging goes. Patient states this mass has been on his head for over a year and has been following with his family doctor. States his family doctor has not been paying attention to it and has not even looked at the mass. Patient states that he got follow-up with dermatology in [place], intensive care anaesthetist also did not remove bandages to look at the mass. Patient states that he struck his head about a month prior to this visit, had his head scan. At that time, head was not bleeding. Mass on the back of his head has been bleeding on and off for about 2 weeks and he is feeling weak and dizzy when he stands up. Denies unilateral deficits, vision changes, nausea or vomiting, chest pain or shortness of breath, or any other concerns. Feels he has exhausted his options in terms of work-up for skull mass. Related Data Home Medications Medication Instructions Recorded Confirmed aspirin 81 mg tablet,delayed 81 mg PO DAILY HEART HEALTH 09/04/18 03/21/23 release (Adult Low Dose Aspirin) atorvastatin 40 mg tablet 40 mg PO HS Cholesterol 04/18/19 03/21/23 thiamine mononitrate (vit B1) 100 100 mg PO DAILY Supplement 08/04/20 03/21/23 mg tablet furosemide 40 mg tablet (Lasix) 40 mg PO NEEDED PRN Edema 04/30/22 03/21/23 ibuprofen 200 mg tablet (Advil) 200 mg PO Q6H PRN 11/30/22 03/21/23 Previous Rx's Medication Instructions Recorded oxycodone 15 mg tablet 15 mg PO Q6HP Pain 7 days #28 tabs 04/20/19 diclofenac sodium 1 % topical gel 2 g topical QID #100 grams 11/30/22 (Voltaren Arthritis Pain) ondansetron 4 mg disintegrating 4 mg PO Q8H PRN nausea and 02/08/23 tablet vomiting 4 days #12 tabs Allergies Allergy/AdvReac Type Severity Reaction Status Date / Time latex AdvReac Mild Rash Verified 03/21/23 10:34 [facility] <Enrique Melgar MD - Last Filed: 04/19/23 15:24> [facility] Disclaimer: The information contained in this section may have been updated after the patient was seen, as this information can be updated by other users. Medical History Abnormal EKG Abnormal Holter monitor finding Angina, class IV Cardiac pacemaker in situ COPD (chronic obstructive pulmonary disease) Left arm pain Surgical History Heart valve replaced History of
[2023-04-19 11:30] VITALS: BP 90/49; PULSE 70; O2SAT 98
[2023-04-19 11:35] LABS: Basophils % 0.1 % (0.1-2.0); Eosinophils # 0.3 K/mm3 (0.0-0.4); Eosinophils % 1.9 % (0.1-12.0); Hemoglobin 8.7 g/dL (14.1-18.0); Lymphocytes # 1.2 K/mm3 (0.7-4.5); Lymphocytes % 7.3 % (10-50); Mean Corpuscular HGB Conc 32.4 g/dL (31.8-35.4); Mean Corpuscular Hemoglobin 34.3 pg (27.0-31.2); Mean Corpuscular Volume 105.8 fl (80-94); Monocytes # 1.4 K/mm3 (0.1-1.0); Monocytes % 8.4 % (1.7-9.3); Neutrophils # 13.8 K/mm3 (1.8-7.8); Neutrophils % 82.2 % (37.0-80.0); Platelet Count 226 K/mm3 (142-424); Red Blood Count 2.55 M/mm3 (4.60-6.20); Red Cell Distribution Width 13.9 % (11.5-17.5); White Blood Count 16.7 K/mm3 (4.8-10.8)
[2023-04-19 11:36] LABS: MANUAL DIFFERENTIAL MANUAL DIFFERENTIAL (MANUAL DIFF)
[2023-04-19 11:40] LABS: Alanine Aminotransferase 36 U/L (12-78); Albumin Level 3.7 g/dl (3.5-5.0); Albumin/Globulin Ratio 1.1 (1.1-1.8); Alkaline Phosphatase 212 U/L (38-126); Anion Gap 11.1 mEq/L (5-15); Aspartate Amino Transferase 41 U/L (17-59); Bilirubin,Total 0.6 mg/dl (0.2-1.3); Blood Urea Nitrogen 31 mg/dl (9-20); Calcium 8.8 mg/dl (8.4-10.2); Carbon Dioxide 34 mmol/L (22.0-30.0); Chloride 92 mmol/L (98-107); Creatinine Clearance Estimated 27 mL/min (50-200); Estimated Glomerular Filt Rate 39 ml/min (>60); GFR (African American) 47 ML/MIN (>60); Globulin 3.3 g/dL (1.3-3.2); Glucose 218 mg/dl (74-100); Lactate Dehydrogenase 271 U/L (313-618); Potassium 4.1 mmoL/L (3.5-5.1); Sodium 133 mmol/L (136-145)
[2023-04-19 11:45] LABS: Eosinophils % 1 % (0-3); Lymphocytes % 4 % (10-50); Monocytes % 9 % (2-9); Neutrophils % 86 % (42-76); Total Cells Counted 100
[2023-04-19 11:46] LABS: Macrocytosis 1+; Platelet Estimate Normal
--- NOTE | 2023-04-19 14:00 | PC.NURSE ---
md on phone with surgery
--- NOTE | 2023-04-19 14:04 | PC.NURSE ---
calling [facility]
--- NOTE | 2023-04-19 14:52 | PC.NURSE ---
checked on ENT call out with [facility]; they are still trying to get in touch still with ENT
--- NOTE | 2023-04-19 15:57 | PC.NURSE ---
Contacting [facility] to consult with plastics also. Awaiting a call back.
--- NOTE | 2023-04-19 16:20 | PC.NURSE ---
Dr. Cruz speaking to [facility]
--- NOTE | 2023-04-19 16:55 | CT_ITS ---
PROCEDURE INFORMATION: Exam: CT Neck With Contrast Exam date and time: 04/19/2023 5:09 PM Age: 77 years old Clinical indication: Condition or disease; Cancer; Other: Unknown; Additional info: Head mass, metastatic disease eval TECHNIQUE: Imaging protocol: Computed tomography of the neck with contrast. Radiation optimization: All CT scans at this facility use at least one of these dose optimization techniques: automated exposure control; mA and/or kV adjustment per patient size (includes targeted exams where dose is matched to clinical indication); or iterative reconstruction. Contrast material: ISOVUE; Contrast volume: 75 ml; Contrast route: IV; REPORTING DATA: Count of CT and Cardiac NM exams in prior 12 months: This patient has received 2 known CTs and 0 known cardiac nuclear medicine studies in the 12 months prior to the current study. COMPARISON: CT CERVICAL SPINE WO CON 04/07/2021 10:45 AM FINDINGS: Tubes, catheters and devices: Cardiac pacemaker partially visualized without gross complication. Brain: Visualized intracranial contents demonstrate no acute abnormality. Mild generalized cerebral/cerebellar atrophy. Orbital cavities: No acute intraorbital findings. Prior bilateral ocular lens extraction. There is symmetrical glandular atrophy involving both submandibular glands, both parotid glands, and both lacrimal glands. No ductal dilatation or mass lesion. No acute inflammatory changes. Consider chronic IgG4 related disease or chronic Sjogren syndrome. Mastoid air cells: The mastoid air cells are clear. Paranasal sinuses: The visualized paranasal sinuses are clear. Pharynx: The parapharyngeal spaces are unremarkable. The nasopharynx is unremarkable. The oropharynx is unremarkable. The hypopharynx is unremarkable. Larynx: Normal epiglottis. Visualized larynx is unremarkable. Prevertebral and retropharyngeal spaces: Unremarkable. Salivary glands: See Orbital cavities finding. Thyroid: The visualized thyroid gland is unremarkable. Lymph nodes: No adenopathy. Trachea: The trachea is unremarkable. Lungs: Mild pleuroparenchymal scarring in the pulmonary apices bilaterally. Granulomatous calcifications in the right apex. Moderate bandlike calcific scarring and atelectasis in both upper lobes. Esophagus: Moderate gaseous distention of the proximal esophagus with no fluid level, probably transient eructation although correlate clinically for dysphagia. Bones/joints: No acute osseous abnormalities. Moderate disc degenerative changes C4-C5 and C5-C6. Slight anterolisthesis of 1.5 mm C3-C4 and slight retrolisthesis of 1.5 mm C4-C5. Prior median sternotomy noted. TMJs are well aligned. Chronic appearing small ossification in the nuchal ligament. The infratemporal fossae and diesel plant operator spaces are unremarkable. Vasculature: The aorta demonstrates mild ectasia/tortuosity and moderate calcific atherosclerosis. No acute vascular abnormalities. Moderate calcific atherosclerosis in both carotid bulbs. Soft tissues: No significant neck soft tissue swelling is appreciated. No hematoma. Other findings: No foreign body. IMPRESSION: 1. No mass lesions or adenopathy to suggest metastatic malignancy in the neck. 2. Symmetrical moderate-severe glandular atrophy involving the parotid glands, submandibular glands, and lacrimal glands. Consider chronic IgG4 related disease versus chronic Sjogren syndrome. 3. Moderate gaseous distention of the proximal esophagus is most likely transient related to belching, with no fluid level or solid content visualized to suggest obstruction, although correlate clinically for dysphagia, consider chest imaging clinically indicated. 4. Additional nonemergent findings detailed above. Electronically s
--- NOTE | 2023-04-19 16:55 | CT_ITS ---
PROCEDURE INFORMATION: Exam: CT Chest With Contrast; Diagnostic Exam date and time: 04/19/2023 5:14 PM Age: 77 years old Clinical indication: Condition or disease; Other: Unknown cancer; Additional info: Head mass, metastatic disease eval TECHNIQUE: Imaging protocol: Diagnostic computed tomography of the chest with contrast. Radiation optimization: All CT scans at this facility use at least one of these dose optimization techniques: automated exposure control; mA and/or kV adjustment per patient size (includes targeted exams where dose is matched to clinical indication); or iterative reconstruction. Contrast material: ISOVUE; Contrast volume: 75 ml; Contrast route: IV; REPORTING DATA: Count of CT and Cardiac NM exams in prior 12 months: This patient has received 2 known CTs and 0 known cardiac nuclear medicine studies in the 12 months prior to the current study. COMPARISON: CR XR CHEST PORTABLE 02/08/2023 8:41 AM FINDINGS: Tubes, catheters and devices: A left subclavian pacemaker device is present, and its leads are in appropriate position. Thyroid: The thyroid gland is normal. Lungs: There are a few scattered punctate pulmonary parenchymal calcifications, consistent with remote granulomatous organism exposure. Linear opacities in the lungs bilaterally suggest parenchymal scarring and/or atelectasis. There are scattered areas of cicatricial bronchiolectasis is also present consistent with parenchymal scarring. No focal areas of consolidation. No suspicious masses. Pleural spaces: There is a trace right pleural effusion. No left effusion. Scattered mild calcified pleural plaques bilaterally suggest asbestos related pleural disease. No pneumothorax. Para there is mild focal pleural thickening involving the right lung apex and superolateral right pleural with adjacent linear parenchymal opacities suggesting pleuroparenchymal scarring. Heart: The heart is mildly enlarged. There is calcification of the mitral valve annulus. There is calcification of the aortic valve annulus. There is no evidence of pericardial fluid collections. Coronary arteries: There is severe atherosclerotic calcification of the coronary arteries. Lymph nodes: Calcified mediastinal and hilar lymph nodes indicate prior granulomatous disease. No pathologic adenopathy. Vasculature: No aortic aneurysm. No dissection.The aorta demonstrates mild atherosclerotic calcification. Diaphragm: There is mild elevation of the left hemidiaphragm. Intraperitoneal space: Findings within the upper abdomen are described in the associated CT of the abdomen and pelvis report from the same date and time. Please reference that report for additional information. Bones/joints: The thoracic spine demonstrates moderate degenerative changes at multiple levels. There are diffuse enthesopathic changes consistent with benign diffuse idiopathic skeletal hyperostosis (DISH). There is moderate diffuse osteopenia. Sternal suture wires are in place suggesting prior median sternotomy and postoperative changes are present involving the mediastinum. A few remote rib fractures are present bilaterally. Soft tissues: No focal soft tissue abnormalities. IMPRESSION: 1. Linear opacities in the lungs bilaterally suggest parenchymal scarring and/or atelectasis with scattered areas of cicatricial bronchiolectasis consistent with parenchymal scarring. 2. A few calcified pleural plaques bilaterally consistent with asbestos related pleural disease. 3. Small right pleural effusion. 4. Mild cardiomegaly. 5. Severe coronary arterial calcifications.
--- NOTE | 2023-04-19 16:55 | CT_ITS ---
PROCEDURE INFORMATION: Exam: CT Abdomen And Pelvis With Contrast Exam date and time: 04/19/2023 5:14 PM Age: 77 years old Clinical indication: Abnormal findings; Abnormal radiologic finding of the abdomen; Radiologic exam and body structure: Unknown metatstatic disease eval; Additional info: Head mass, metastatic disease eval TECHNIQUE: Imaging protocol: Computed tomography of the abdomen and pelvis with contrast. Radiation optimization: All CT scans at this facility use at least one of these dose optimization techniques: automated exposure control; mA and/or kV adjustment per patient size (includes targeted exams where dose is matched to clinical indication); or iterative reconstruction. Contrast material: ISOVUE; Contrast volume: 75 ml; Contrast route: IV; REPORTING DATA: Count of CT and Cardiac NM exams in prior 12 months: This patient has received 2 known CTs and 0 known cardiac nuclear medicine studies in the 12 months prior to the current study. COMPARISON: CT PELVIS WO CON 02/25/2021 10:37 PM FINDINGS: Liver: The liver has a nodular contour consistent with cirrhosis. There is mild intra and extrahepatic biliary ductal dilatation. This may be on the basis of post cholecystectomy state. Correlate clinically. Gallbladder and bile ducts: There has been a cholecystectomy. Pancreas: There is diffuse, benign fatty infiltration of the pancreas. Spleen: The spleen is normal. Adrenal glands: There is mild nonspecific nondiscrete prominence to both adrenal glands. Kidneys and ureters: There are scattered areas of mild renal cortical scarring bilaterally. The kidneys are otherwise within range of normal. Stomach and bowel: Lack of gastrointestinal contrast limits evaluation of bowel.A small hiatal hernia is present. Apparent gastric mural thickening could be on the basis of incomplete distension but cannot exclude gastritis or other inflammatory or infiltrative process. Correlate clinically. The duodenum is unremarkable. There is mildly excessive colonic stool content. Apparent rectal wall thickening may reflect proctitis or other inflammatory/infiltrative/neoplastic/ischemic processes cannot entirely be excluded. Unopacified loops of small bowel are within range of normal. Appendix: No evidence of appendicitis. Intraperitoneal space: There is no evidence of free intraperitoneal or pelvic fluid. No free air. Vasculature: The aorta and iliac arteries demonstrate moderate atherosclerotic calcification. There are advanced mesenteric vascular calcifications. There is minor ectasia of the infrarenal abdominal aorta measuring approximately 2.2 cm. There are a few benign phleboliths in the pelvis. There is minor ectasia of the right common iliac artery measuring approximately 15 mm on series 3, image 79. The left common iliac artery measures 12.6 mm. Lymph nodes: No enlarged lymph nodes. Urinary bladder: There is moderate bladder wall thickening. There are areas of bladder wall trabeculation. Reproductive: The prostate demonstrates nonspecific parenchymal calcifications. Prostate measures 4.2 x 3.0 cm. Bones/joints: There is moderate diffuse osteopenia. The thoracolumbar spine demonstrates mild to moderate degenerative changes at multiple levels. There is trace retrolisthesis of L5 on S1. There is marked intervertebral disc space narrowing at the L5-S1 level with vacuum disc phenomenon, as well as minor endplate discogenic degenerative changes and marginal osteophytes. Prominent bilateral neural foraminal narrowing is seen at this level. Patient is status post ORIF of the left hip the, in near anatomic alignment. There are mild degenerative changes of the hip joints. There are mild degenerative changes of the sacroiliac joints. There ar
[2023-04-19 18:04] VITALS: BP 89/57; PULSE 85; O2SAT 100
--- NOTE | 2023-04-19 18:40 | PC.NURSE ---
attempted to call ed for report x3 with no answer
--- NOTE | 2023-04-19 19:31 | PC.NURSE ---
pt arrived to the floor via wheelchair @19:28
[2023-04-19 19:40] VITALS: BP 91/54; PULSE 85; RESP 16; TEMP 36.5; O2SAT 100
[2023-04-19 20:00] VITALS: BP 118/57; PULSE 99; RESP 16; TEMP 36.7; O2SAT 96; O2SAT 97; BMI 15.9
--- NOTE | 2023-04-19 20:03 | EXP.HP ---
History of Present Illness *Admission Date: 04/19/23 *Reason for visit:: mass of scalp *History of present illness: 77-year-old male presented to ED for mass on back of head that has been thier for months. PMHX of lymphoma in remission, hypertension, hyperlipidemia, diabetes, CAD status post CABG currently on daily aspirin, pacemaker defibrillator in place, and COPD. Patient states this mass has been on his head for over a year and has been following with his family doctor. States his family doctor has not been paying attention to it and has not even looked at the mass. Mass on the back of his head has been bleeding on and off for about 2 weeks and he is feeling weak and dizzy when he stands up. Patient states that he got follow-up with dermatology in [place], fruit sorter also did not remove bandages to look at the mass. His ED workup revealed a leukocytosis of 16.7, hgb of 8.7, and Na of 133. His Head CT reveals a large exophytic mass concerning for neoplasm on the posterior scalp. The ED physician consulted [facility] transfer team and the pt was accepted by ENT oncology. See Dr. Nava's note for his report. Recommendation of holding aspirin if transfusion needed. The ED physician consulted the hospitalist team. I admitted the pt to the medical surgical floor. Pt arrives in no acute distress. will monitor hgb and bleeding. [facility] Disclaimer: The information contained in this section may have been updated after the patient was seen, as this information can be updated by other users. Medical History (Updated 04/19/23 @ 20:43 by YARA Ward) Abnormal EKG Abnormal Holter monitor finding Angina, class IV Cardiac pacemaker in situ COPD (chronic obstructive pulmonary disease) Left arm pain Skin cancer Surgical History Heart valve replaced History of left hip replacement Family History Other Family history of myocardial infarction Social History (Updated 04/19/23 @ 20:10 by Samantha Burch, ED) Smoking Status: Never smoker second hand exposure: No alcohol intake: never substance use type: denies use current occupational status: retired Travel in the last 8 weeks: [facility] the [facility] adopted: No caregiver/support person: Yes (SPOUSE) foster care: No household members: spouse housing: house lives independently: No marital status: number of children: 3 number of grandchildren: 9 education level: other service: Yes fpc: Yes ([employer] HIP) current occupational exposures/hazards: No pets and animals: Yes (2 DOGS 1 CAT) sexually active: No caffeine: Yes Review of Systems ENT Comments: Mass on scalp *Cardiovascular Cardiovascular: Reports pedal edema *Respiratory Respiratory: Reports system reviewed and no additional complaints, except as documented *Gastrointestinal Gastrointestinal: Reports system reviewed and no additional complaints, except as documented *Genitourinary Genitourinary: Reports system reviewed and no additional complaints, except as documented *Musculoskeletal Musculoskeletal: Reports system reviewed and no additional complaints, except as documented *Neurologic Neurologic: Reports system reviewed and no additional complaints, except as documented Meds Home Medications and Allergies Home Medications Medication Instructions Recorded Confirmed Type aspirin 81 mg tablet,delayed 81 mg PO DAILY HEART HEALTH 09/04/18 04/19/23 History release (Adult Low Dose Aspirin) atorvastatin 40 mg tablet 40 mg PO HS Cholesterol 04/18/19 04/19/23 History oxycodone 15 mg tablet 15 mg PO Q6HP Pain 7 days #28 tabs 04/20/19 04/19/23 Rx thiamine mononitrate (vit B1) 100 100 mg PO DAILY Supplement 08/04/20 04/19/23 History mg tablet furosemide 40 mg tablet (Lasix) 40 mg PO NEEDED PRN Edema 04/30/22 04/19/23 History ibuprofen 200
[2023-04-19 21:30] LABS: POC Glucose,Bedside 166 (70-110)
--- NOTE | 2023-04-19 21:54 | PC.NURSE ---
Recvd call from spoke with Reyes; Patient has been assigned a room. [facility], [facility], 6th Floor, [place] [address], [address].
--- NOTE | 2023-04-19 22:05 | PC.NURSE ---
Pt assigned a bed at . [facility], 6th floor, tower [address], room 125
--- NOTE | 2023-04-19 22:07 | PC.NURSE ---
Notified pt , Tina Burger that pt has been assigned a bed at . Room information given to at this time per request.
--- NOTE | 2023-04-19 22:09 | EXP.DC.SUM ---
General Admission date:: 04/19/23 Discharge date: 04/19/23 HPI HPI HPI: 77-year-old male presented to ED for mass on back of head that has been thier for months. PMHX of lymphoma in remission, hypertension, hyperlipidemia, diabetes, CAD status post CABG currently on daily aspirin, pacemaker defibrillator in place, and COPD. Patient states this mass has been on his head for over a year and has been following with his family doctor. States his family doctor has not been paying attention to it and has not even looked at the mass. Mass on the back of his head has been bleeding on and off for about 2 weeks and he is feeling weak and dizzy when he stands up. Patient states that he got follow-up with dermatology in [place], hydraulic plumber also did not remove bandages to look at the mass. His ED workup revealed a leukocytosis of 16.7, hgb of 8.7, and Na of 133. His Head CT reveals a large exophytic mass concerning for neoplasm on the posterior scalp. The ED physician consulted [facility] team and the pt was accepted by ENT oncology. See Dr. Nava's note for his report. Recommendation of holding aspirin if transfusion needed. The ED physician consulted the hospitalist team. I admitted the pt to the medical surgical floor. Pt arrives in no acute distress. will monitor hgb and bleeding. Hospital Course Hospital Course Hospital Course: 77-year-old male presented to ED for mass on back of head that has been thier for months. PMHX of lymphoma in remission, hypertension, hyperlipidemia, diabetes, CAD status post CABG currently on daily aspirin, pacemaker defibrillator in place, and COPD. Patient states this mass has been on his head for over a year and has been following with his family doctor. States his family doctor has not been paying attention to it and has not even looked at the mass. Mass on the back of his head has been bleeding on and off for about 2 weeks and he is feeling weak and dizzy when he stands up. Patient states that he got follow-up with dermatology in [place], hydraulic plumber also did not remove bandages to look at the mass. His ED workup revealed a leukocytosis of 16.7, hgb of 8.7, and Na of 133. His Head CT reveals a large exophytic mass concerning for neoplasm on the posterior scalp. The ED physician consulted [facility] team and the pt was accepted by ENT oncology. See Dr. Nava's note for his report. Recommendation of holding aspirin if transfusion needed. The ED physician consulted the hospitalist team. I admitted the pt to the medical surgical floor. Pt arrives in no acute distress. will monitor hgb and bleeding. [facility] called with bed for pt. Pt condition has not changed in 3 hours Exam Data for Last 24 hours Vital signs and Labs for Last 24 Hours: Temp Pulse Resp BP Pulse Ox O2 Del Method 98.1 F 99 H 16 118/57 L 97 Room Air 04/19/23 20:00 04/19/23 20:00 04/19/23 20:00 04/19/23 20:00 04/19/23 20:00 04/19/23 20:00 Laboratory Results - last 24 hr 04/19/23 11:20: WBC 16.7 H, RBC 2.55 L, Hgb 8.7 L, Hct 27.0 L, MCV 105.8 H, MCH 34.3 H, MCHC 32.4, RDW 13.9, Plt Count 226, MPV 8.0, Neut % (Auto) 82.2 H, Lymph % (Auto) 7.3 L, [place] % (Auto) 8.4, Eos % (Auto) 1.9, Baso % (Auto) 0.1, Neut # (Auto) 13.8 H, Lymph # (Auto) 1.2, [place] # (Auto) 1.4 H, Eos # (Auto) 0.3, Baso # (Auto) 0.0, Total Counted 100, Neutrophils % (Manual) 86 H, Lymphocytes % (Manual) 4 L, Monocytes % (Manual) 9, Eosinophils % (Manual) 1, Platelet Estimate Normal, Macrocytosis 1+, Sodium 133 L, Potassium 4.1, Chloride 92 L, Carbon Dioxide 34 H, Anion Gap 11.1, BUN 31 H, Creatinine 1.70 H, Estimated Creat Clear 27, Estimated GFR 39 L, Est GFR ( Amer) 47 L, Glucose 218 H, Calcium 8.8, Total Bilirubin 0.6, AST 41, ALT 36, Alkaline Phosphatase 212 H, Lactate Dehydrogenase 271 L, Total Protein 7.0, Albumin 3.7, Globulin 3.3 H, Albumin/Globulin Ratio 1.1, Blood Type O Positive, Antibody Screen Negative 04/19/23 21:16: POC Glucose 166 H I & O for Last 24 hours:
--- NOTE | 2023-04-19 22:22 | PC.NURSE ---
Jose Burger 1945 Active Medications Albuterol/Ipratropium (Ipratropium/Albuterol 3 Ml Neb) 3 ml IH Q6HP PRN PRN Reason: Shortness Of Breath Stop: 05/19/23 20:28 Aspirin (Aspirin Ec 81mg Tablet) 81 mg PO DAILY [facility] Stop: 05/20/23 08:59 Atorvastatin Calcium (Atorvastatin 40mg Tablet) 40 mg PO HS YONG Stop: 05/19/23 20:59 Last Admin: 04/19/23 20:51 Dose: 40 mg Furosemide (Furosemide 40 Mg Tablet) 40 mg PO NEEDED PRN PRN Reason: Edema Stop: 05/19/23 20:25 Insulin Human Lispro (Humalog 100 Units/Ml 3ml Vial (Ssi)) 0 unit SQ [facility]; Protocol Stop: 05/19/23 20:59 Last Admin: 04/19/23 21:00 Dose: Not Given Melatonin (Melatonin 5mg Tablet) 5 mg PO HS YONG Stop: 05/19/23 20:59 Last Admin: 04/19/23 20:50 Dose: 5 mg Non-Formulary Medication (Ibuprofen [Advil]) 200 mg PO Q6H PRN PRN Reason: Pain, Mild Non-Formulary Medication (Oxycodone) 15 mg PO Q6HP YONG Stop: 05/19/23 20:29 Last Admin: 04/19/23 20:50 Dose: 15 mg Ondansetron HCl (Ondansetron 4mg Odt) 4 mg PO Q8H PRN PRN Reason: nausea and vomiting Stop: 05/19/23 20:25
--- NOTE | 2023-04-19 22:31 | PC.NURSE ---
Report given to Nicky WARD at [facility] at this time.
--- NOTE | 2023-04-19 23:28 | PC.NURSE ---
pt exited the floor via EMS @23:25
[2023-04-19 23:32] LABS: Hemoglobin A1C 6.5 % (4.0-6.0)
== END 2023-04-19 23:25 | disposition short-term general hospital (02) ==
LOC: ER 17:40 → 2ND 17:48
PROVIDERS: Nurse Practitioner Critical Care Medicine; Admitting Provider Internal Medicine; Emergency Provider Emergency Medicine; PCP Internal Medicine; Visit Provider Internal Medicine
DX: R22.0 Localized swelling, mass and lump, head (principal); E11.9 Type 2 diabetes mellitus without complications; I25.810 Atherosclerosis of coronary artery bypass graft(s) without angina pectoris; E78.2 Mixed hyperlipidemia; J44.9 Chronic obstructive pulmonary disease, unspecified; N18.9 Chronic kidney disease, unspecified; Z95.810 Presence of automatic (implantable) cardiac defibrillator; Z95.1 Presence of aortocoronary bypass graft; Z79.4 Long term (current) use of insulin; I12.9 Hypertensive chronic kidney disease with stage 1 through stage 4 chronic kidney disease, or unspecified chronic kidney disease; D49.2 Neoplasm of unspecified behavior of bone, soft tissue, and skin; C85.90 Non-Hodgkin lymphoma, unspecified, unspecified site
CPT/HCPCS: 36415; 70470; 70491; 71260; 74177; 80053; 82962; 83036; 83615; 85007; 85025; 86850; 99291; G0378; Q9967